=== PATIENT | male | born 1955 | race Caucasian/White ===

== ENCOUNTER 2021-04-26 10:23 | Outpatient (CLI) | payer MEDICARE, SELFPAY ==
--- NOTE | 2021-04-26 10:33 | USCV_ITS ---
Dereje Mcarthur Age: 65 Gender: M : 1955 Exam Date: 04/26/2021 11:02 Ordering Phys: Anand Dougherty PA-C Technologist: Kathie Perla Exam Location: [facility] [place] Indication: RIGHT LOWER EXTREMITY SWELLING AND RIGHT GROIN MASS HISTORY: Lower extremity swelling. PROCEDURES: Venous duplex imaging was performed in only the right lower extremity. The following venous structures were evaluated: common femoral vein, profunda vein, proximal portion of the greater saphenous vein, superficial femoral vein, and the popliteal vein. In addition, the posterior tibial and peroneal trunk were evaluated. FINDINGS: There appears to be an enlarged lyphm node in right groin patient directed area. Normal 2-D Doppler and augmentation and compressibility throughout the lower extremity venous structures. Additional imaging through the proximal calf veins also reveals no thrombus. Limited evaluation of the greater saphenous vein is patent with no thrombus.. CONCLUSIONS No evidence of right lower extremity DVT. Enlarged abnormal lymph node right groin measuring 5.7 x 2.3cm. Loss of the normal fatty hilum. Recommned CT abdomen and pelvis in further evaluation and correlation with history of malignancy Setvo Alonso MD (Electronically Signed) Final Date: 26 April 2021 17:50 S
== END 2021-04-26 10:24 | disposition home or self-care (01) ==
LOC: RAD 10:29
PROVIDERS: PCP Family Medicine; Visit Provider Physician Assistant Medical
DX: R19.09 Other intra-abdominal and pelvic swelling, mass and lump (principal); M79.89 Other specified soft tissue disorders; C67.9 Malignant neoplasm of bladder, unspecified
CPT/HCPCS: 93971

== ENCOUNTER 2021-04-29 11:29 | Outpatient (CLI) | payer MEDICARE, SELFPAY ==
[2021-04-29 12:25] LABS: Basophils % 0.3 %; Eosinophils # 0.1 10^3/uL (0.0-0.8); Eosinophils % 0.9 %; Hematocrit 46.1 % (42.0-52.0); Hemoglobin 15.1 g/dL (11.7-16.6); Lymphocytes # 1.5 10^3/uL (0.8-4.8); Lymphocytes % 16.6 %; Mean Corpuscular HGB Conc 32.8 g/dL (30.0-36.0); Mean Corpuscular Volume 85.5 fL (80-94); Mean Platelet Volume 9.8 fL (7.4-10.4); Monocytes # 0.6 10^3/uL (0.2-0.9); Monocytes % 6.6 %; Neutrophils # 6.82 10^3/uL (1.8-7.7); Neutrophils % 75.3 %; Nucleated Red Blood Cells % 0 %; Platelet Count 176 10^3/cmm (130-400); Red Blood Count 5.39 10^6/uL (4.1-5.3); Red Cell Distribution Width 13.6 % (12.1-15.1); White Blood Count 9.1 10^3/uL (4.0-10.0)
[2021-04-29 12:47] LABS: D Dimer 6.77 ug/mIFEU (0-0.59)
[2021-04-29 12:50] LABS: Add Urine Microscopic? YES; Bilirubin Urine 1+ (Negative); Blood Urine 2+ (Negative); Glucose Urine UA Norm (Normal); Ketones Urine Negative (Negative); Leukocyte Esterase Urine Trace (Negative); Nitrate Urine Negative (Negative); Protein Urine Trace (Negative); Urine Appearance SL Hazy (CLEAR); Urine Color Yellow (Yellow); Urobilinogen Urine 1 mg/dL (Negative); pH Urine 5 (5-7)
[2021-04-29 13:03] LABS: Prostate Specific Antigen 0.881 ng/mL (0-4)
--- NOTE | 2021-04-29 13:13 | CT_ITS ---
WS: [id number] CT ABDOMEN AND PELVIS WITH CONTRAST HISTORY: MASS OF RIGHT INGUINAL REGION, MALIGNANT NEOPLASM OF URINARY TECHNIQUE: Imaging performed of the abdomen and pelvis with IV contrast. Single phase imaging of the abdomen. Coronal and sagittal reformats are submitted. All CT scans at [facility] use at least one of these dose optimization techniques: automated exposure control; mA and/or kV adjustment per patient size (includes targeted exams where dose is matched to clinical indication); or iterativ e reconstruction. IV CONTRAST: Omnipaque 300; 95 mL IV. Oral contrast: Yes. DLP: 1137.48 mGycm COMPARISON: None available. Lower thorax: Benign granuloma at the RIGHT lung base. Heart is normal size. Small hiatal hernia. Liver/biliary system: Numerous low-attenuation lesions throughout the liver. Confluent cluster of nod ules in the LEFT lobe measures 8.4 x 7.6 cm. These nodules extend to the falciform ligament. There ar e a few additional hypodensities along the RIGHT lateral falciform ligament. There is a larger hypoec hoic mass in the posterior RIGHT lobe of liver measuring 5.3 x 3.9 cm. Benign granuloma RIGHT lobe. N o bile duct dilatation. Portal vein is patent. Gallbladder: Normal. No gallstones or wall thickening. No pericholecystic fluid. Pancreas: Normal size pancreas and pancreatic duct. No adjacent inflammation. Spleen: Normal size with granulomata. Adrenal glands: Normal. Right kidney: Normal size kidney. Several cysts with the largest measuring 2.8 cm. No obstruction or solid mass. Left kidney: Large cyst from the upper pole measures 8.0 x 7.1 cm. There are additional cortical cyst s. Larger cyst from the lower pole extending anteriorly measures 13.5 x 10.7 cm. No hydronephrosis or solid mass. Aorta: No aneurysm. Moderate atherosclerotic plaque. Lymphadenopathy: Retrocrural lymph node measures 1.4 cm. Celiac axis lymph node 2.5 cm. Confluent sof t tissue surrounds the abdominal aorta beginning at the level of the renal arteries and extending inf eriorly around the aorta. Maximum diameter of the soft tissue is 4.8 x 6.6 cm just below the level of the renal arteries. There is near encasement of the abdominal aorta with lymph nodes. Proximal LEFT common iliac lymph node at 2.0 cm. Additional lymph nodes extending along the RIGHT iliac artery. The re is extensive lymph node burden extending along the RIGHT external iliac artery into the inguinal r egion. RIGHT obturator lymph node measures 2.6 x 4.4 cm. RIGHT inguinal lymph node measures 4.0 x 2.3 cm. Additional smaller lymph nodes, predominantly within the RIGHT pelvis and RIGHT inguinal region. Free fluid: None. GI tract: Extensive diverticular disease throughout the colon. Normal appendix. No GI tract obstructi on. Abdominal wall: Unremarkable abdominal wall. No hernia. Pelvis: Nondistended urinary bladder. Prostate gland is slightly enlarged. Internal canals are patent bilaterally containing fat. Bones: There is some very minimal increased density within several of the vertebral bodies including T10 and L4. CT/CT abdomen pelvis w con* [id number] IMPRESSION: 1. Abdominal and pelvic lymphadenopathy. Abnormal lymph nodes: RIGHT retrocrur al, celiac axis, retroperitoneum, bilateral iliac chains and RIGHT inguinal reg ion. Metastatic lymphadenopathy is most likely. The lymph node at the RIGHT ruth ann in should be readily available for ultrasound-guided biopsy. 2. Metastatic liver disease. Numerous metastatic lesions within the liver. Lar gest in the LEFT lobe is a confluent mass measuring 8.4 x 7.6 cm. 3. No adrenal mass. 4. Pancolonic diverticulosis without acute diverticulitis. 5. Very subtle increased density within T10 and L4. Consider early metastatic bone disease. PET/CT imaging and/or bone scan should be obtained.
[2021-04-29 13:14] LABS: Alanine Aminotransferase 14 U/L (0-41); Albumin Level 3.8 g/dL (3.5-5.2); Alkaline Phosphatase 134 IU/L (40-130); Anion Gap 15.4 (5-19); Aspartate Amino Transferase 18 U/L (0-40); Blood Urea Nitrogen 17 mg/dL (8-23); Calcium 8.8 mg/dL (8.5-10.5); Carbon Dioxide 24 mmol/L (22-29); Chloride 102 mmol/L (98-107); Globulin 3.2 g/dL (1.3-4.6); Glomerular Filtration Rate 113.5 mL/min (90-130); Glucose 83 mg/dL (65-115); Osmolality Calculated 285 mOsm/kg (285-295); Potassium 4.4 mmol/L (3.5-5.1); Sodium 137 mmol/L (136-145); Total Bilirubin 0.7 mg/dL (0.15-1.2)
[2021-04-29] MEDS: iohexol 300 mg/mL 50 mL Btl PO (13:16)
[2021-04-29 13:19] LABS: Mucus Urine 4+ /hpf
[2021-04-29 13:20] LABS: Add Urine Culture? Yes; Bacteria Urine 2+ /hpf; Squamous Epithelial Cell Urine 0-4 /hpf (0-5); WBC Urine 0-4 /hpf (0-5)
[2021-04-29 13:30] LABS: Erythrocyte Sedimentation Rate 13 mm/hr (0-10)
[2021-04-29] MEDS: iohexol 300 mg/mL 100 mL Btl IV (14:33)
== END 2021-04-29 11:30 | disposition home or self-care (01) ==
PROVIDERS: PCP Family Medicine; Visit Provider Physician Assistant Medical
DX: Z12.5 Encounter for screening for malignant neoplasm of prostate (principal); R19.09 Other intra-abdominal and pelvic swelling, mass and lump; C67.9 Malignant neoplasm of bladder, unspecified; K57.90 Diverticulosis of intestine, part unspecified, without perforation or abscess without bleeding; R59.1 Generalized enlarged lymph nodes; M79.89 Other specified soft tissue disorders
CPT/HCPCS: 36415; 74177; 80053; 81001; 84153; 85025; 85378; 85651; 87086; Q9967

== ENCOUNTER 2021-06-03 08:07 | Outpatient (CLI) | payer MEDICARE, SELFPAY ==
[2021-06-03 09:29] LABS: Basophils % 0.1 %; Eosinophils % 0.3 %; Hematocrit 42.1 % (42.0-52.0); Hemoglobin 14.1 g/dL (11.7-16.6); Lymphocytes # 1.4 10^3/uL (0.8-4.8); Mean Corpuscular HGB Conc 33.5 g/dL (30.0-36.0); Mean Corpuscular Hemoglobin 26.8 pg (28.0-34.0); Mean Corpuscular Volume 79.9 fl (80-94); Mean Platelet Volume 9.5 fL (7.4-10.4); Monocytes # 0.3 10^3/uL (0.2-0.9); Monocytes % 4.1 %; Neutrophils # 5.26 10^3/uL (1.8-7.7); Neutrophils % 72.1 %; Nucleated Red Blood Cells % 0 %; Platelet Count 109 10^3/cmm (130-400); Red Blood Count 5.27 10^6/uL (4.1-5.3); Red Cell Distribution Width 14.8 % (12.1-15.1); White Blood Count 7.3 10^3/uL (4.0-10.0)
[2021-06-03 09:45] LABS: Alanine Aminotransferase 53 U/L (0-41); Alkaline Phosphatase 278 IU/L (40-130); Anion Gap 16.3 (5-19); Aspartate Amino Transferase 33 U/L (0-40); Blood Urea Nitrogen 19 mg/dL (8-23); Carbon Dioxide 25 mmol/L (22-29); Chloride 97 mmol/L (98-107); Glomerular Filtration Rate 135.2 mL/min (90-130); Glucose 86 mg/dL (65-115); Osmolality Calculated 280 mOsm/kg (285-295); Potassium 4.3 mmol/L (3.5-5.1); Sodium 134 mmol/L (136-145); Total Bilirubin 0.8 mg/dL (0.15-1.2)
[2021-06-03] MEDS: ondansetron 2 mg/ML SDV 2 mL 8 MG IV (12:00)
[2021-06-03] MEDS: sodium chloride 0.9% 250 ML 75 ML IV (12:00)
--- NOTE | 2021-06-03 14:56 | ONC CON_ITS ---
Dr. Mcintyre New Patient Note Patient: Dereje Mcarthur Unit #: [id number]: 1955 Dicatated By: Lele Mcintyre M.D.Date of Visit: Jun 03, 2021 Onc MED New Patient/Consult Referring Physician: Dr. Jama Ferrer M.D. Chief Complaint: Metastatic urothelial adenocarcinoma. History of Present Illness: This is a 66 year-old man recently found to have metastatic adenocarcinoma consistent with urothelial primary. He has a known history of superficial bladder cancer, initially diagnosed in 2016. He had stage I disease (T1, N0, M0) for which he underwent TURBT and intravesical BCG. Had repeat TURBT and intravesical BCG recurrence in 2017 which was stage 0 (Tis, N0, M0) and again in 2018 which was stage I (T1, N0, M0). His records indicate that surveillance cystoscopy on 02/05/2021 showed evidence for BPH with moderate obstruction. In April 2021 he had presented with swelling of the right leg. His venous Doppler on 04/26/2021 showed no evidence of deep vein thrombosis. There appeared to be and enlarged lymph node in the right groin area measuring 5.7 x 2.3 cm. Further evaluation with CT abdomen/pelvis on 04/29/2021 showed numerous low-attenuation lesions throughout the liver consistent with metastatic disease. The largest was in the left lobe measuring 8.4 x 7.6 cm. A mass in the posterior right lobe measured 5.3 x 3.9 cm. There was extensive lymphadenopathy including retrocrural lymph node measuring 1.4 cm, celiac axis lymph node measuring 2.5 cm, periaortic adenopathy with maximum diameter of 4.8 x 6.6 cm, as well as left common iliac adenopathy measuring 2.0 cm and extensive lymph node burden extending along the right external iliac artery into the inguinal region. A right obturator lymph node measured 2.6 x 4.4 cm and a right inguinal lymph node measured 4.0 x 2.3 cm. There appeared to be minimal increased density within several of the vertebral bodies including T10 and L4, suspicious for early metastatic bone disease. Right inguinal lymph node biopsy on 05/07/2021 was nondiagnostic. Nuclear medicine bone scan on 05/17/2021 showed extensive metastatic disease throughout the axial skeleton which included all the ribs, sternum, cervical spine, thoracic spine, lumbar spine, and both hips. CT directed needle biopsy of the liver on 05/18/2021 showed metastatic adenocarcinoma consistent with urothelial primary. Additional imaging at that time included chest CT which showed 2 small lung nodules which were nonspecific, early metastatic disease not excluded. MRI of the brain showed no evidence of metastatic disease. He had medical oncology consultation with Dr. Yun at [facility] on 05/12/2021. With the pathology findings available, he was recommended to undergo a trial of palliative chemotherapy with cisplatin/gemcitabine. He began cycle 1 on 05/27/2021. He is being seen here now so that he can receive his further treatment closer to home. He was able to tolerate his day 1 chemotherapy without acute toxicities. He actually noted significant improvement in his energy and his appetite for the first 3 days after treatment while he was taking dexamethasone. He has since then had very limited activity. He ambulates short distances with a walker. He is otherwise sedentary. ECOG score is 3. Appetite since then has been very poor. Overall his weight is down 30 pounds. He has had low-grade fever up to 101 degrees off and on, and he sometimes has sweating. He has not had sore mouth or throat, but he does complain that some foods hurt to swallow. He does not complain of cough, and he has not been having shortness of breath or chest pain. He has had no nausea/vomiting. He has had heartburn. He has been taking Pepcid, but not regularly. He has constipation. His bowels have moved taking magnesium citrate every third day. He has no complaints other than some mild hesitancy with urination. His most significant pain has been in the back and left hip, but it is being managed adequately with his pain medication. He does not complain of headache or dizziness, and he has no focal neurologic symptoms. Past Medical History: His medical history consists of gastroesophageal reflux disease, hypertension, and superficial bladder cancer. Past Surgical History: He underwent right inguinal lymph node biopsy on 05/08/2021. He underwent CT directed needle biopsy of the liver on 05/18/2021. His other surgical/procedural history includes TURBT and intravesical BCG in 2016, 2017 and 2018, excision of benign neck tumor in 2013, and previous right foot surgery. Medications: Baclofen Tablet Oral, Dexamethasone Tablet Oral, Famotidine 1 Tablet (of 40 mg) Oral daily, HYDROcodone-Acetaminophen 1 Tablet (of 5-325 mg) Oral q 4 hours PRN, Magnesium Citrate Solution Oral PRN, Metoclopramide HCl 1 Tablet (of 5 mg) Oral four times a day, Metoprolol Tartrate 1 Tablet (of 25 mg) Oral b.i.d., Morphine Sulfate ER 1 Tablet (of 30 mg) Tablet, controlled release Oral b.i.d., Ondansetron HCl Tablet Oral, Prochlorperazine Maleate 1 Tablet (of 10 mg) Oral t.i.d. PRN, Rolapitant HCl (180 MG Dose) Tablet Therapy Pack Oral, Senna S 1 Tablet (of 8.6-50 mg) Oral b.i.d., traMADol HCl Tablet Oral Allergies: No Known Allergies. Social History: Mr. Mcarthur is . He has a history of smoking 1 pack of cigarettes daily for 40 years. He just recently quit. He has very little alcohol use. Family History: Father in his late 80s. He had prostate cancer, but he apparently of old age. Mother had diabetes. He had one brother who with coronary artery disease. One sister is still living. Review Of Symptoms: Constitutional - He had good energy and good appetite for about 3 days after his treatment last week. His activity now is very limited. He has only minimal ambulation with a walker. Appetite is poor. His weight is down 30 pounds. He has had low-grade fever up to 101 degrees off and on. He sometimes has sweating. ECOG score is 3, Eyes - No change in vision, ENMT - No hearing loss or tinnitus. No sinus congestion/drainage. No mouth sores. No sore throat or difficulty swallowing, but with some foods it does hurt to swallow, Hematologic/Lymphatic - No abnormal bruising or bleeding, Respiratory - No shortness of breath. No cough. No pleuritic pain or hemoptysis, Cardiovascular - No angina pain. No palpitations, Gastrointestinal - No nausea or vomiting. He has heartburn. He has been taking Pepcid, but not regularly. He has constipation. Bowels are moving by taking magnesium citrate every 3 days. No blood in the stool or black stools, Genitourinary (M) - No dysuria or hematuria. No urinary frequency. He has some hesitancy with urination. No urgency or incontinence, Musculoskeletal - He has been having pain in his left hip and he has back pain, but it has been adequately controlled on the pain medication, Integumentary - No skin rash or other skin changes, Neurologic - No headache or dizziness. No numbness or tingling. No other focal neurologic symptoms, Psychiatric - He has a little anxiety/depression. He has been sleeping okay. Vital Signs: Performed on Jun 03, 2021 11:35: 7, 3, 31.72 (HIGH), 2.33 sq.m, 73.00 in, 98 %, 64 /min, 18 /min, 130/78 mm(hg), 96.9 F (LOW), and 240.4 lbs (HIGH). Physical Examination: Constitutional - He appears somewhat weak generally, Eyes - Sclerae nonicteric. Conjunctivae clear, ENMT - No lesions noted in the oral cavity, Neck - No mass or thyromegaly, Hematologic/Lymphatic - No cervical, clavicular, or axillary adenopathy, Respiratory - Lungs are clear with good air movement bilaterally, Cardiovascular - Heart rhythm is regular. There is no murmur, gallop, or rub noted, Abdomen - Soft. There is mild tenderness on the left upper quadrant/lower rib cage. Liver and spleen are not enlarged. There is no abdominal mass or ascites noted. there is no inguinal adenopathy noted, Back/Spine - There is no significant bony tenderness in the spine, Extremities - There was 2+ edema involving the entire right leg, and it does feel cool to touch. There is just mild edema on the left. Dorsalis pedis pulses are palpable bilaterally, Integumentary - No rashes. No suspicious skin lesions noted, Neurologic - No focal neurologic deficits noted. Lab/Imaging: CBC shows hemoglobin 14.1 g, white blood cell count 7300, and platelet count 109,000. Comprehensive metabolic profile shows normal renal function with BUN 19 and creatinine 0.6 mg/dL. Alkaline phosphatase is elevated at 278/130 IU/L. SGPT is slightly elevated to 53/41 U/L. The SGOT and the bilirubin are normal. Albumin is low 3.0 g/dL. Problem List: 1. Metastatic adenocarcinoma of urothelial origin, stage IVB (Tx, N3, M1b). 2. History of superficial bladder cancer with negative surveillance cystoscopy in January 2021. 3. Hypertension. 4. GERD. Problems Addressed with this Encounter and Plan: 1. Patient with metastatic adenocarcinoma consistent with urothelial primary. He has stage IV disease with CT evidence of multiple metastatic lesions in the liver and extensive metastatic lymphadenopathy in the abdomen/pelvis. There is also extensive bony metastatic disease by nuclear medicine bone scan. He is undergoing a trial of palliative chemotherapy with cisplatin/gemcitabine for 4 cycles. Depending on response, he would then have the option to transition to maintenance immunotherapy with avelumab. He is currently at day 8 of cycle 1 of cisplatin/gemcitabine. Thus far he has tolerated the chemotherapy well. He will proceed with day 8 gemcitabine at 1000 mg/m??? by IV infusion. Returns in 1 week. In the meantime, due to the symptomatic improvement he had with the dexamethasone, I am going to keep him on a low-dose steroid regimen with prednisone 10 mg twice daily. He also will start pantoprazole 40 mg daily for his GERD symptoms. 2. He has extensive metastatic involvement in bone. He also will begin supportive therapy with denosumab, subject to verification of insurance coverage. 3. He has opiate-induced constipation. He is currently on a bowel regimen with senna/docusate and magnesium citrate. For now he will increase senna to 2 tablets up to 2 or 3 times daily. I will consider adding Relistor as necessary. Signed By: Lele Mcintyre M.D. <<Signature on File>>
== END 2021-06-03 08:08 | disposition home or self-care (01) ==
PROVIDERS: PCP Family Medicine; Visit Provider Internal Medicine Medical Oncology
DX: Z51.11 Encounter for antineoplastic chemotherapy (principal); C78.7 Secondary malignant neoplasm of liver and intrahepatic bile duct; C77.2 Secondary and unspecified malignant neoplasm of intra-abdominal lymph nodes; C79.51 Secondary malignant neoplasm of bone; K21.9 Gastro-esophageal reflux disease without esophagitis; K59.03 Drug induced constipation; T40.60 Poisoning by, adverse effect of and underdosing of unspecified narcotics; Z85.51 Personal history of malignant neoplasm of bladder; Z79.899 Other long term (current) drug therapy; Z79.891 Long term (current) use of opiate analgesic
CPT/HCPCS: 80053; 85025; 96367; 96375; 96413; 99205; J1100; J2405; J7050; J9201

== ENCOUNTER 2021-06-10 06:44 | Outpatient (RCR) | payer MEDICARE, SELFPAY ==
[2021-06-10 08:54] LABS: Basophils % 0.2 %; Eosinophils % 0.2 %; Hematocrit 38.1 % (42.0-52.0); Hemoglobin 12.2 g/dL (11.7-16.6); Lymphocytes % 18.6 %; Mean Corpuscular Hemoglobin 26.8 pg (28.0-34.0); Mean Corpuscular Volume 83.7 fl (80-94); Mean Platelet Volume 10.3 fL (7.4-10.4); Monocytes # 0.4 10^3/uL (0.2-0.9); Neutrophils # 3.58 10^3/uL (1.8-7.7); Neutrophils % 69.9 %; Nucleated Red Blood Cells % 0.4 %; Platelet Count 102 10^3/cmm (130-400); Red Blood Count 4.55 10^6/uL (4.1-5.3); Red Cell Distribution Width 16.1 % (12.1-15.1); White Blood Count 5.1 10^3/uL (4.0-10.0)
[2021-06-10 09:30] LABS: Alanine Aminotransferase 35 U/L (0-41); Albumin Level 3.1 g/dL (3.5-5.2); Alkaline Phosphatase 227 IU/L (40-130); Anion Gap 15.2 (5-19); Aspartate Amino Transferase 19 U/L (0-40); Blood Urea Nitrogen 29 mg/dL (8-23); Calcium 8.4 mg/dL (8.5-10.5); Carbon Dioxide 24 mmol/L (22-29); Chloride 102 mmol/L (98-107); Globulin 2.9 g/dL (1.3-4.6); Glucose 86 mg/dL (65-115); Osmolality Calculated 289 mOsm/kg (285-295); Potassium 4.2 mmol/L (3.5-5.1); Sodium 137 mmol/L (136-145); Total Bilirubin 0.4 mg/dL (0.15-1.2)
[2021-06-10] MEDS: sodium chloride 0.9% 250 ML 75 ML IV (10:40)
[2021-06-10] MEDS: ondansetron 2 mg/ML SDV 2 mL 8 MG IVP (10:40)
[2021-06-10] MEDS: denosumab 120 mg SDV SUBCUT (12:05)
--- NOTE | 2021-06-13 12:10 | ONC FU_ITS ---
Dr. Mcintyre Patient Follow-Up Note Patient: eDreje Mcarthur Unit #: [id number]: 1955 Dicatated By: Lele Mcintyre M.D.Date of Visit:Jun 10, 2021 Onc Med Follow-up/Prog Note Chief Complaint: Metastatic urothelial adenocarcinoma. History of Present Illness: This is a 66 year-old man with metastatic adenocarcinoma consistent with urothelial primary. He has a known history of superficial bladder cancer, initially diagnosed in 2016. He had stage I disease (T1, N0, M0) for which he underwent TURBT and intravesical BCG. Had repeat TURBT and intravesical BCG recurrence in 2017 which was stage 0 (Tis, N0, M0) and again in 2018 which was stage I (T1, N0, M0). His records indicate that surveillance cystoscopy on 02/05/2021 showed evidence for BPH with moderate obstruction. In April 2021 he had presented with swelling of the right leg. His venous Doppler on 04/26/2021 showed no evidence of deep vein thrombosis. There appeared to be and enlarged lymph node in the right groin area measuring 5.7 x 2.3 cm. Further evaluation with CT abdomen/pelvis on 04/29/2021 showed numerous low-attenuation lesions throughout the liver consistent with metastatic disease. The largest was in the left lobe measuring 8.4 x 7.6 cm. A mass in the posterior right lobe measured 5.3 x 3.9 cm. There was extensive lymphadenopathy including retrocrural lymph node measuring 1.4 cm, celiac axis lymph node measuring 2.5 cm, periaortic adenopathy with maximum diameter of 4.8 x 6.6 cm, as well as left common iliac adenopathy measuring 2.0 cm and extensive lymph node burden extending along the right external iliac artery into the inguinal region. A right obturator lymph node measured 2.6 x 4.4 cm and a right inguinal lymph node measured 4.0 x 2.3 cm. There appeared to be minimal increased density within several of the vertebral bodies including T10 and L4, suspicious for early metastatic bone disease. Right inguinal lymph node biopsy on 05/07/2021 was nondiagnostic. Nuclear medicine bone scan on 05/17/2021 showed extensive metastatic disease throughout the axial skeleton which included all the ribs, sternum, cervical spine, thoracic spine, lumbar spine, and both hips. CT directed needle biopsy of the liver on 05/18/2021 showed metastatic adenocarcinoma consistent with urothelial primary. Additional imaging at that time included chest CT which showed 2 small lung nodules which were nonspecific, early metastatic disease not excluded. MRI of the brain showed no evidence of metastatic disease. He had medical oncology consultation with Dr. Yun at [facility] on 05/12/2021. With the pathology findings available, he was recommended to undergo a trial of palliative chemotherapy with cisplatin/gemcitabine. He began cycle 1 on 05/27/2021. He tolerated it without acute toxicity. He was then seen here for his cycle 1 day 8 gemcitabine on 06/03/2021. His other medical illnesses have been limited to hypertension and GERD. He has a history of smoking 1 pack of cigarettes daily for 40 years, but he has quit now. INTERIM HISTORY: He is seen for a follow-up visit. He is now at day 15 of his first cycle of chemotherapy. He is feeling pretty good now. He has had some improvement in his energy and activity tolerance. He is doing a lot of walking and he also is able to do some light work. ECOG score is 1. His appetite is good. He has not had fever. He reports having occasional cold sweats. His tongue has been a little sore. He has not had sore throat or difficulty swallowing. He has no shortness of breath, cough, or chest pain. He has no GI or complaints. He has some back pain and he also has a little pain in his hips. He does not complain of headache or dizziness, and he has no focal neurologic symptoms. Medications: Baclofen Tablet Oral, Dexamethasone Tablet Oral, Famotidine 1 Tablet (of 40 mg) Oral daily, HYDROcodone-Acetaminophen 1 Tablet (of 5-325 mg) Oral q 4 hours PRN, Magnesium Citrate Solution Oral PRN, Metoclopramide HCl 1 Tablet (of 5 mg) Oral four times a day, Metoprolol Tartrate 1 Tablet (of 25 mg) Oral b.i.d., Morphine Sulfate ER 1 Tablet (of 30 mg) Tablet, controlled release Oral b.i.d., Ondansetron HCl Tablet Oral, Prochlorperazine Maleate 1 Tablet (of 10 mg) Oral t.i.d. PRN, Rolapitant HCl (180 MG Dose) Tablet Therapy Pack Oral, Senna S 1 Tablet (of 8.6-50 mg) Oral b.i.d., traMADol HCl Tablet Oral Allergies: No Known Allergies. Vital Signs: Performed on Jun 10, 2021 10:07 Height - 73.00 in Weight - 236.6 lbs (LOW) BSA - 2.31 sq.m BMI - 31.22 (HIGH) Temperature - 98.2 F (LOW) Pulse - 66 /min Respiration - 18 /min BP - 154/81 mm(hg) (HIGH) O2 Sat - 98 % Pain - 0 Fatigue - 2 Physical Examination: Constitutional - He looks a little better generally, Eyes - Sclerae nonicteric. Conjunctivae clear, ENMT - No lesions noted in the oral cavity, Hematologic/Lymphatic - No cervical, clavicular, or axillary adenopathy, Respiratory - Lungs are clear with good air movement bilaterally, Cardiovascular - Heart rhythm is regular. There is no murmur, gallop, or rub noted, Abdomen - Soft. Liver and spleen are not enlarged. There is no abdominal mass or ascites noted. There is a palpable nodule above the biopsy site in the right groin, and there is some mild soft tissue swelling in that area, Extremities - Mild lower extremity edema, Neurologic - No focal neurologic deficits noted. Lab/Imaging: Test performed on Jun 10, 2021 08:37 Sodium 137 mmol/L Potassium 4.2 mmol/L Chloride 102 mmol/L CO2 24 mmol/L Anion Gap 15.2 BUN 29 mg/dL Creatinine 1.0 mg/dL Cr Clearance (Est) 113.4000 mL/min eGFR 75.0 mL/min Glucose 86 mg/dL Osmolality - Calculated 289 mOsm/kg Calcium 8.4 mg/dL Protein, Total 6.0 g/dL Albumin 3.1 g/dL Globulin 2.9 g/dL Bilirubin, Total 0.4 mg/dL ALT (SGPT) 35 U/L AST (SGOT) 19 U/L Alkaline Phosphatase 227 IU/L WBC 5.1 10 3/uL RBC 4.55 10 6/uL HGB 12.2 g/dL HCT 38.1 % MCV 83.7 fl MCH 26.8 pg MCHC 32.0 g/dL RDW 16.1 % Platelet Count 102 10 3/cmm MPV 10.3 fL Neutrophils 3.58 10 3/uL Lymphocytes 1.0 10 3/uL Monocytes 0.4 10 3/uL Eosinophils 0.0 10 3/uL Basophils 0.0 10 3/uL Neutrophil % 69.9 % Lymphocyte % 18.6 % Monocyte % 7.0 % Eosinophil % 0.2 % Basophils % 0.2 % NRBC % 0.4 % Problem List: 1. Metastatic adenocarcinoma of urothelial origin, stage IVB (Tx, N3, M1b). 2. History of superficial bladder cancer with negative surveillance cystoscopy in January 2021. 3. Hypertension. 4. GERD. Problems Addressed with this Encounter and Plan: 1. Patient with metastatic adenocarcinoma consistent with urothelial primary. He has stage IV disease with CT evidence of multiple metastatic lesions in the liver and extensive metastatic lymphadenopathy in the abdomen/pelvis. There is also extensive bony metastatic disease by nuclear medicine bone scan. He is undergoing a trial of palliative chemotherapy with cisplatin/gemcitabine for 4 cycles. Depending on response, he would then have the option to transition to maintenance immunotherapy with avelumab. He is now at day 15 of cycle 1 of cisplatin/gemcitabine. Thus far he has tolerated the chemotherapy very well. He will proceed with day 15 gemcitabine at 1000 mg/m??? by IV infusion. His blood counts will be rechecked in 1 week and he will return for a follow-up visit in 2 weeks. In the meantime, I also will arrange for placement of Port-A-Cath venous access device, as he does not have very good peripheral venous access. 2. He has extensive metastatic involvement in bone. He will begin supportive therapy with denosumab, subject to verification of insurance coverage. Signed By: Lele Mcintyre M.D. <<Signature on File>>
== END 2021-06-17 23:59 | disposition home or self-care (01) ==
LOC: ONCMED 06:44
PROVIDERS: PCP Family Medicine; Visit Provider Internal Medicine Medical Oncology
DX: Z51.11 Encounter for antineoplastic chemotherapy (principal); C68.0 Malignant neoplasm of urethra; I10 Essential (primary) hypertension; K21.9 Gastro-esophageal reflux disease without esophagitis; Z85.51 Personal history of malignant neoplasm of bladder
CPT/HCPCS: 80053; 85025; 96367; 96372; 96375; 96413; 99214; J0897; J1100; J2405; J7050; J9201

== ENCOUNTER → 2021-06-16 10:19 | Outpatient (BNVA) | payer MEDICARE, SELFPAY | PROVIDERS: PCP Family Medicine; Visit Provider Internal Medicine Medical Oncology | DX: Z20.822 Contact with and (suspected) exposure to COVID-19 (principal); C79.10 Secondary malignant neoplasm of unspecified urinary organs | CPT/HCPCS: 85025; 87635 ==

== ENCOUNTER 2021-06-23 06:16 | Day surgery (SDC) | payer MEDICARE, SELFPAY ==
--- NOTE | 2021-06-23 | SCC_ITS ---
Procedure Done: Placement of PowerPort in the left subclavian vein Fluoroscopic guidance and interpretation for placement of catheter 28.8 seconds of fluoroscopic guidance, for a cumulative dose of 6.75 mGy, was provided to Dr. Cam by the radiology department. C-arm images of the chest were saved for the patient's permanent record. [facility]
[2021-06-23 06:23] VITALS: BP 137/80; PULSE 65; RESP 16; TEMP 36.6; O2SAT 100
[2021-06-23] MEDS: sodium chloride 0.9% 1,000 ML 30 ML IV (06:49)
--- NOTE | 2021-06-23 07:01 | W.PM.OPSUD ---
Surgery/Procedure H&P Update DATE OF PROCEDURE: June 23, 2021 DATE H&P PERFORMED: 06/15/21 H&P UPDATE INFORMATION: I have reviewed H&P completed within last 30 days, I have examined patient prior to procedure and No changes to prior documentation PREOP DIAGNOSIS: Bladder cancer PLANNED PROCEDURE: Operation Date: 06/23/21 07:50 Proposed Procedures p Portacath Placement 67910 C79.10(Not Applicable) - Orlando Cam MD
--- NOTE | 2021-06-23 07:40 | ANES.PREANE2 ---
Pre-Anesthetic Assessment Pre-Anesthetic Assessment: Height/Weight: Height 1.85 m Temp Pulse Resp BP Pulse Ox 98 F 65 16 137/80 100 06/23/21 06:23 06/23/21 06:23 06/23/21 06:23 06/23/21 06:23 06/23/21 06:23 Preop Diagnosis: Bladder cancer Proposed Procedure: Operation Date: 06/23/21 07:50 Proposed Procedures p Portacath Placement 07360 C79.10(Not Applicable) - Orlando Cam MD Was Beta Mata taken within 24 hours: Yes Was Clonidine taken within 24 hours: N/A Last intake: Intake Last Liquid Date 06/22/21 Last Liquid Time 18:00 Last Solid Date 06/22/21 Last Solid Time 18:00 Social: Social History: Tobacco and No alcohol Exam: Pre-Anes Outpt Exam: alert, oriented x 3 and regular rate & rhythm Airway: Submandibular: WNL Cervical ROM: WNL MP: 2 Dentition: Full Pulmonary: Pulmonary: COPD CV/HEM: CV/HEM: HTN Metabolic: Metabolic: Morbid obesity Neuropsych: Comments: Chronic pain (from [place]) Anesthetic Plan: ASA status: 3 Anesthesia: MAC Risk of > 500 ml blood loss (7ml/kg in children): No Meds/Allergies Current Medications: Current Medications Generic Name Dose Route Start Last Admin Trade Name Freq PRN Reason Stop Dose Admin Sodium Chloride 1,000 mls @ 30 ml s/hr 06/23/21 06:30 06/23/21 06:49 Sodium Chloride 0.9% IV 30 mls/hr .Q24H ABA Administration PFSH Anesthesia PFSH: Medical History (Updated 06/15/21 @ 13:39 by Orlando Cam MD) History of bladder cancer Metastatic urothelial carcinoma Surgical History (Updated 06/15/21 @ 13:39 by Orlando Cam MD) H/O excision of dermoid cyst Hx of cystoscopy Family History (Updated 06/15/21 @ 13:16 by Rosa Swanson) Other CAD (coronary artery disease) Cancer Diabetes Denies family history of Dementia Chronic kidney disease (CKD) Lung disease Stroke Social History (Updated 06/15/21 @ 13:16 by Rosa Swanson) Smoking and tobacco status: current every day smoker Alcohol intake: never Lives independently: Yes Household members: spouse Marital status: Data Anesthesia Cardiac Studies: No Data to Display
--- NOTE | 2021-06-23 07:54 | SC_ITS ---
WS: [id number] C-arm fluoroscopy for port placement, 06/23/2021 Clinical Data: SURGERY Comparison: None. Findings: A left Port-A-Cath was inserted and ends in the superior vena cava SC/C-arm FL for CVA 16736 Impression: Left Port-A-Cath insertion.
[2021-06-23] MEDS: lidocaine 1% INJ 20 mL INJECTION (08:42)
[2021-06-23] MEDS: heparin, porcine 1,000 unit/mL INJ 10 mL 6000 UNIT INJECTION (08:43)
--- NOTE | 2021-06-23 08:53 | PM.OP ---
Operative Report Date of procedure: June 23, 2021 Pre-op Diagnosis: Bladder cancer Post-op diagnosis: same Procedure Done: Placement of PowerPort in the left subclavian vein Fluoroscopic guidance and interpretation for placement of catheter Pathology: none sent Surgeon: Orlando Cam Anesthesia: MAC Condition: stable Disposition: PACU Procedure: The patient was taken to the Operating Room and the chest and neck bilaterally were prepped and draped in a sterile manner after the antibiotic had been administered and shoulder rolls had been placed. A total of 10 mL of 1% lidocaine with 0.5% Marcaine was infiltrated under the clavicle on the left side at the site of the planned entry into the subclavian vein. An introducer needle was then used to access the subclavian vein under the clavicle and after withdrawing blood syringe was removed and a guidewire passed under fluoroscopy into the superior vena cava. The site of the planned port was then marked on the chest and a 15 blade was used to make a 3 cm skin incision this was extended into the subcutaneous tissue using electrocautery and a subcutaneous pocket over the pectoralis fascia was created 2-0 Vicryl suture was used to suture the port to the pectoral fascia in the pocket on 3 sides. The catheter, after having been flushed with hep saline, was attached to the tunneler and a tunnel created between the port site and the subclavian vein entry site. Under fluoroscopy the dilator sheath was passed over the guidewire into the proximal superior vena cava. The inner dilator was removed and the sheath left behind and~ the catheter was introduced through the peel-away sheath with the tip in the superior vena cava. The peel-away sheath was removed. The proximal end of the catheter was cut to the right size and was attached to the port. Using a Escalante needle the port was accessed, it withdrew blood easily and flushed easily. A final 5cc of heparin was used to flush the PowerPort. The subcutaneous tissue was approximated using interrupted 3-0 Vicryl sutures and the skin at the introducer site and the port site was closed using subcuticular running 4-0 Monocryl sutures. Surgical glue was applied and the patient was stable throughout the procedure. Fluoroscopic guidance and interpretation was performed for introduction of the guidewire in the left subclavian vein, passage of dilator and placement of catheter tip in the distal superior vena cava.
[2021-06-23 09:06] VITALS: BP 112/68; PULSE 64; RESP 12; TEMP 36.2; O2SAT 99
[2021-06-23 09:10] VITALS: BP 112/63; PULSE 62; RESP 12; O2SAT 100
[2021-06-23 09:15] VITALS: BP 128/71; PULSE 60; RESP 12; O2SAT 100
[2021-06-23 09:27] VITALS: BP 111/77; PULSE 64; RESP 12; TEMP 36.2; O2SAT 98
--- NOTE | 2021-06-23 15:15 | ANE.PACU2 ---
Inpatient post-anesthesia follow up: Airway intact: Yes Vital signs: Temperature 97.2 F Pulse Rate 64 Respiratory Rate 12 Blood Pressure 111/77 Pulse Oximetry 98 Oxygen Delivery Me thod Room Air Oxygen Flow Rate 8 Fraction of Inspir ed Oxygen Hydration adequate: Yes Nausea and vomiting: No Pain level: 2 Mental status: Baseline
== END 2021-06-23 09:40 | disposition home or self-care (01) ==
PROVIDERS: PCP Family Medicine; Visit Provider Surgery
PROC: (CPT 36561; principal; 2021-06-23 07:50)
DX: C67.9 Malignant neoplasm of bladder, unspecified (principal); J44.9 Chronic obstructive pulmonary disease, unspecified; I10 Essential (primary) hypertension; E66.01 Morbid (severe) obesity due to excess calories; Z82.49 Family history of ischemic heart disease and other diseases of the circulatory system; Z83.3 Family history of diabetes mellitus; F17.210 Nicotine dependence, cigarettes, uncomplicated; G89.29 Other chronic pain; Z79.891 Long term (current) use of opiate analgesic
CPT/HCPCS: 36561; 76000; 77001; C1788; J0690; J1644; J2704; J3010; J3490; J7030

== ENCOUNTER 2021-07-01 06:23 | Outpatient (RCR) | payer MEDICARE, SELFPAY ==
[2021-06-24] MEDS: sodium chloride 0.9% 250 ML 75 ML IV (08:37)
[2021-06-24 09:17] LABS: Basophils % 0.3 %; Eosinophils % 0.3 %; Lymphocytes # 1.4 10^3/uL (0.8-4.8); Lymphocytes % 19.1 %; Mean Corpuscular HGB Conc 31.4 g/dL (30.0-36.0); Mean Corpuscular Hemoglobin 27.3 pg (28.0-34.0); Mean Corpuscular Volume 86.8 fl (80-94); Mean Platelet Volume 9.6 fL (7.4-10.4); Monocytes # 0.9 10^3/uL (0.2-0.9); Monocytes % 11.3 %; Neutrophils # 5.06 10^3/uL (1.8-7.7); Nucleated Red Blood Cells % 0.5 %; Platelet Count 249 10^3/cmm (130-400); Red Blood Count 4.03 10^6/uL (4.1-5.3); Red Cell Distribution Width 20.1 % (12.1-15.1); White Blood Count 7.5 10^3/uL (4.0-10.0)
[2021-06-24 09:40] LABS: Alanine Aminotransferase 22 U/L (0-41); Albumin Level 3.1 g/dL (3.5-5.2); Alkaline Phosphatase 127 IU/L (40-130); Anion Gap 12.8 (5-19); Aspartate Amino Transferase 14 U/L (0-40); Blood Urea Nitrogen 25 mg/dL (8-23); Calcium 8.8 mg/dL (8.5-10.5); Carbon Dioxide 23 mmol/L (22-29); Chloride 106 mmol/L (98-107); Globulin 2.8 g/dL (1.3-4.6); Glomerular Filtration Rate 113.2 mL/min (90-130); Glucose 79 mg/dL (65-115); Osmolality Calculated 287 mOsm/kg (285-295); Potassium 4.8 mmol/L (3.5-5.1); Sodium 137 mmol/L (136-145); Total Bilirubin 0.3 mg/dL (0.15-1.2); Total Protein 5.9 g/dL (6.6-8.7)
[2021-06-24] MEDS: palonosetron 0.25 mg/5 mL SDV IV (10:25)
[2021-06-24] MEDS: fosaprepitant 150 MG in sodium chloride 0.9% 150 ML 300 MG IV (10:53)
[2021-06-24] MEDS: FUROsemide 10 mg/mL SDV 2mL 20 MG IV (13:14)
[2021-06-24] MEDS: potassium chloride 20 MEQ in sodium chloride 0.9% 500 ML 250 MEQ IV (13:15)
[2021-07-01 09:41] LABS: Basophils % 0.2 %; Eosinophils % 0.2 %; Hematocrit 32.6 % (42.0-52.0); Hemoglobin 10.8 g/dL (11.7-16.6); Lymphocytes # 1.3 10^3/uL (0.8-4.8); Lymphocytes % 20.3 %; Mean Corpuscular HGB Conc 33.1 g/dL (30.0-36.0); Mean Corpuscular Hemoglobin 28.4 pg (28.0-34.0); Mean Corpuscular Volume 85.8 fl (80-94); Mean Platelet Volume 9.4 fL (7.4-10.4); Monocytes # 0.4 10^3/uL (0.2-0.9); Monocytes % 5.6 %; Neutrophils # 4.48 10^3/uL (1.8-7.7); Neutrophils % 69.5 %; Nucleated Red Blood Cells # 0.1 /100WBC; Nucleated Red Blood Cells % 0.9 %; Platelet Count 144 10^3/cmm (130-400); White Blood Count 6.4 10^3/uL (4.0-10.0)
[2021-07-01 10:13] LABS: Alanine Aminotransferase 50 U/L (0-41); Albumin Level 3.5 g/dL (3.5-5.2); Alkaline Phosphatase 106 IU/L (40-130); Anion Gap 14.5 (5-19); Aspartate Amino Transferase 19 U/L (0-40); Blood Urea Nitrogen 23 mg/dL (8-23); Calcium 8.2 mg/dL (8.5-10.5); Carbon Dioxide 22 mmol/L (22-29); Chloride 104 mmol/L (98-107); Globulin 2.6 g/dL (1.3-4.6); Glomerular Filtration Rate 135.2 mL/min (90-130); Glucose 87 mg/dL (65-115); Osmolality Calculated 285 mOsm/kg (285-295); Potassium 4.5 mmol/L (3.5-5.1); Sodium 136 mmol/L (136-145); Total Bilirubin 0.4 mg/dL (0.15-1.2); Total Protein 6.1 g/dL (6.6-8.7)
[2021-07-01] MEDS: ondansetron 2 mg/ML SDV 2 mL 8 MG IV (11:43)
[2021-07-01] MEDS: sodium chloride 0.9% 250 ML 75 ML IV (11:43)
== END 2021-07-18 23:59 | disposition home or self-care (01) ==
LOC: ONCMED 06:23
PROVIDERS: PCP Family Medicine; Visit Provider Nurse Practitioner
DX: Z51.11 Encounter for antineoplastic chemotherapy (principal); C67.9 Malignant neoplasm of bladder, unspecified; C78.7 Secondary malignant neoplasm of liver and intrahepatic bile duct; C77.8 Secondary and unspecified malignant neoplasm of lymph nodes of multiple regions; I10 Essential (primary) hypertension; K21.9 Gastro-esophageal reflux disease without esophagitis; Z79.899 Other long term (current) drug therapy
CPT/HCPCS: 80053; 85025; 96367; 96375; 96413; 96417; 99215; J1100; J1453; J1940; J2405; J2469; J3475; J3480; J7030; J7040; J7050; J9060; J9201

== ENCOUNTER → 2021-07-07 09:26 | Outpatient (BNVA) | payer MEDICARE, SELFPAY | PROVIDERS: PCP Family Medicine; Visit Provider Internal Medicine Medical Oncology | DX: C79.10 Secondary malignant neoplasm of unspecified urinary organs (principal) | CPT/HCPCS: 80053; 85025 ==

== ENCOUNTER 2021-08-09 06:25 | Outpatient (RCR) | payer MEDICARE, SELFPAY ==
[2021-07-22 09:36] LABS: Basophils % 0.3 %; Eosinophils % 0.3 %; Hematocrit 38.5 % (42.0-52.0); Hemoglobin 12.2 g/dL (11.7-16.6); Lymphocytes # 1.2 10^3/uL (0.8-4.8); Mean Corpuscular HGB Conc 31.7 g/dL (30.0-36.0); Mean Corpuscular Hemoglobin 29.3 pg (28.0-34.0); Mean Corpuscular Volume 92.3 fl (80-94); Mean Platelet Volume 9.4 fL (7.4-10.4); Monocytes # 0.6 10^3/uL (0.2-0.9); Monocytes % 7.1 %; Neutrophils # 5.78 10^3/uL (1.8-7.7); Neutrophils % 74.7 %; Nucleated Red Blood Cells % 0.4 %; Platelet Count 171 10^3/cmm (130-400); Red Blood Count 4.17 10^6/uL (4.1-5.3); Red Cell Distribution Width 22.3 % (12.1-15.1); White Blood Count 7.7 10^3/uL (4.0-10.0)
[2021-07-22 09:55] LABS: Alanine Aminotransferase 23 U/L (0-41); Albumin Level 3.5 g/dL (3.5-5.2); Alkaline Phosphatase 88 IU/L (40-130); Anion Gap 13.6 (5-19); Aspartate Amino Transferase 15 U/L (0-40); Blood Urea Nitrogen 19 mg/dL (8-23); Calcium 8.7 mg/dL (8.5-10.5); Carbon Dioxide 26 mmol/L (22-29); Chloride 107 mmol/L (98-107); Globulin 2.4 g/dL (1.3-4.6); Glomerular Filtration Rate 166.9 mL/min (90-130); Glucose 105 mg/dL (65-115); Osmolality Calculated 297 mOsm/kg (285-295); Potassium 4.6 mmol/L (3.5-5.1); Sodium 142 mmol/L (136-145); Total Bilirubin 0.4 mg/dL (0.15-1.2); Total Protein 5.9 g/dL (6.6-8.7)
[2021-07-22] MEDS: fosaprepitant 150 MG in sodium chloride 0.9% 150 ML 300 MG IV (13:21)
[2021-07-22] MEDS: sodium chloride 0.9% 250 ML 75 ML IV (13:21)
[2021-07-22] MEDS: palonosetron 0.25 mg/5 mL SDV IV (13:46)
[2021-07-22] MEDS: FUROsemide 10 mg/mL SDV 2mL 20 MG IV (15:57)
[2021-07-22] MEDS: potassium chloride 20 MEQ in sodium chloride 0.9% 500 ML 250 MEQ IV (15:59)
--- NOTE | 2021-07-22 20:01 | ONC FU_ITS ---
Dr. Mcintyre Patient Follow-Up Note Patient: Dereje Mcarthur Unit #: [id number]: 1955 Dicatated By: Lele Mcintyre M.D.Date of Visit:Jul 22, 2021 Onc Med Follow-up/Prog Note Chief Complaint: Metastatic urothelial adenocarcinoma. History of Present Illness: This is a 66 year-old man with metastatic adenocarcinoma consistent with urothelial primary. He has a known history of superficial bladder cancer, initially diagnosed in 2016. He had stage I disease (T1, N0, M0) for which he underwent TURBT and intravesical BCG. Had repeat TURBT and intravesical BCG recurrence in 2017 which was stage 0 (Tis, N0, M0) and again in 2018 which was stage I (T1, N0, M0). His records indicate that surveillance cystoscopy on 02/05/2021 showed evidence for BPH with moderate obstruction. In April 2021 he had presented with swelling of the right leg. His venous Doppler on 04/26/2021 showed no evidence of deep vein thrombosis. There appeared to be and enlarged lymph node in the right groin area measuring 5.7 x 2.3 cm. Further evaluation with CT abdomen/pelvis on 04/29/2021 showed numerous low-attenuation lesions throughout the liver consistent with metastatic disease. The largest was in the left lobe measuring 8.4 x 7.6 cm. A mass in the posterior right lobe measured 5.3 x 3.9 cm. There was extensive lymphadenopathy including retrocrural lymph node measuring 1.4 cm, celiac axis lymph node measuring 2.5 cm, periaortic adenopathy with maximum diameter of 4.8 x 6.6 cm, as well as left common iliac adenopathy measuring 2.0 cm and extensive lymph node burden extending along the right external iliac artery into the inguinal region. A right obturator lymph node measured 2.6 x 4.4 cm and a right inguinal lymph node measured 4.0 x 2.3 cm. There appeared to be minimal increased density within several of the vertebral bodies including T10 and L4, suspicious for early metastatic bone disease. Right inguinal lymph node biopsy on 05/07/2021 was nondiagnostic. Nuclear medicine bone scan on 05/17/2021 showed extensive metastatic disease throughout the axial skeleton which included all the ribs, sternum, cervical spine, thoracic spine, lumbar spine, and both hips. CT directed needle biopsy of the liver on 05/18/2021 showed metastatic adenocarcinoma consistent with urothelial primary. Additional imaging at that time included chest CT which showed 2 small lung nodules which were nonspecific, early metastatic disease not excluded. MRI of the brain showed no evidence of metastatic disease. He had medical oncology consultation with Dr. Yun at [facility] on 05/12/2021. With the pathology findings available, he was recommended to undergo a trial of palliative chemotherapy with cisplatin/gemcitabine. He began cycle 1 on 05/27/2021. He tolerated it without acute toxicity. He was then seen here for his cycle 1 day 8 gemcitabine on 06/03/2021 and for cycle 1 day 15 treatment on 06/10/2021. His other medical illnesses have been limited to hypertension and GERD. He has a history of smoking 1 pack of cigarettes daily for 40 years, but he has quit now. INTERIM HISTORY: He was seen for a scheduled follow-up visit on 06/24/2021. At that point he was feeling better generally. His blood counts were adequate, and he then continued with cycle 2 of cisplatin/gemcitabine. The dosages remain the same. He continued with his cycle 2 day 8 treatment on 07/01/2021, but at day 15 his treatment was put on hold due to a drop in his platelet count to 55,000. He is seen for a scheduled visit. He has been feeling pretty good generally. He says his energy is okay, and he is back to normal activity. ECOG score is zero. His appetite is good. He has not had fever. He occasionally has a little swelling. His main complaint is right leg has been swelling more during the past couple of weeks. He has not had sore mouth or throat. He does not complain of cough, and he has not been having shortness of breath or chest pain. He has no GI or complaints. He has no significant joint or bone pain. He does not complain of headache or dizziness. He has been having some numbness in his right foot/toes. Medications: Baclofen Tablet Oral, Dexamethasone Tablet Oral, Famotidine 1 Tablet (of 40 mg) Oral daily, HYDROcodone-Acetaminophen 1 Tablet (of 5-325 mg) Oral q 4 hours PRN, Magnesium Citrate Solution Oral PRN, Metoclopramide HCl 1 Tablet (of 5 mg) Oral four times a day, Metoprolol Tartrate 1 Tablet (of 25 mg) Oral b.i.d., Morphine Sulfate ER 1 Tablet (of 30 mg) Tablet, controlled release Oral b.i.d., Ondansetron HCl Tablet Oral, Prochlorperazine Maleate 1 Tablet (of 10 mg) Oral t.i.d. PRN, Rolapitant HCl (180 MG Dose) Tablet Therapy Pack Oral, Senna S 1 Tablet (of 8.6-50 mg) Oral b.i.d., traMADol HCl Tablet Oral Allergies: No Known Allergies. Vital Signs: Performed on Jul 22, 2021 10:25 Height - 73.00 in Weight - 258 lbs (HIGH) BSA - 2.40 sq.m BMI - 34.04 (HIGH) Temperature - 98.4 F Pulse - 61 /min Respiration - 18 /min BP - 156/89 mm(hg) (HIGH) O2 Sat - 99 % Pain - 0 Fatigue - 0 Physical Examination: Constitutional - He looks good generally, Eyes - Sclerae nonicteric. Conjunctivae clear, ENMT - No lesions noted in the oral cavity, Hematologic/Lymphatic - No cervical, clavicular, or axillary adenopathy, Respiratory - Lungs are clear with good air movement bilaterally, Cardiovascular - Heart rhythm is regular. There is no murmur, gallop, or rub noted, Abdomen - Soft. Liver and spleen are not enlarged. There is no abdominal mass or ascites noted. There is a small residual nodule in the right groin area, Extremities - There is significant swelling of the right leg down to and including the foot. There is a palpable nodule in the midportion of the right calf, Neurologic - No focal neurologic deficits noted. Lab/Imaging: Test performed on Jul 22, 2021 09:19 Sodium 142 mmol/L Potassium 4.6 mmol/L Chloride 107 mmol/L CO2 26 mmol/L Anion Gap 13.6 BUN 19 mg/dL Creatinine 0.5 mg/dL Cr Clearance (Est) 243.81 mL/min eGFR 166.9 mL/min Glucose 105 mg/dL Osmolality - Calculated 297 mOsm/kg Calcium 8.7 mg/dL Protein, Total 5.9 g/dL Albumin 3.5 g/dL Globulin 2.4 g/dL Bilirubin, Total 0.4 mg/dL ALT (SGPT) 23 U/L AST (SGOT) 15 U/L Alkaline Phosphatase 88 IU/L WBC 7.7 10 3/uL RBC 4.17 10 6/uL HGB 12.2 g/dL HCT 38.5 % MCV 92.3 fl MCH 29.3 pg MCHC 31.7 g/dL RDW 22.3 % Platelet Count 171 10 3/cmm MPV 9.4 fL Neutrophils 5.78 10 3/uL Lymphocytes 1.2 10 3/uL Monocytes 0.6 10 3/uL Eosinophils 0.0 10 3/uL Basophils 0.0 10 3/uL Neutrophil % 74.7 % Lymphocyte % 16.0 % Monocyte % 7.1 % Eosinophil % 0.3 % Basophils % 0.3 % NRBC % 0.4 % Problem List: 1. Metastatic adenocarcinoma of urothelial origin, stage IVB (Tx, N3, M1b). 2. History of superficial bladder cancer with negative surveillance cystoscopy in January 2021. 3. Hypertension. 4. GERD. Problems Addressed with this Encounter and Plan: 1. Patient with metastatic adenocarcinoma consistent with urothelial primary. He has stage IV disease with CT evidence of multiple metastatic lesions in the liver and extensive metastatic lymphadenopathy in the abdomen/pelvis. There is also extensive bony metastatic disease by nuclear medicine bone scan. He is undergoing a trial of palliative chemotherapy with cisplatin/gemcitabine for 4 cycles. Depending on response, he would then have the option to transition to maintenance immunotherapy with avelumab. He completed his first cycle of cisplatin/gemcitabine with no significant adverse effects. He proceeded with cycle two on 06/24/2021. With that cycle his day 15 treatment was held due to a drop in his platelet count to 55,000. He had no significant toxicity, and he has had complete recovery. Clinically he does appear to be showing evidence of response with decrease in the right inguinal mass. However, he has having ongoing problems with swelling in the right leg. As such, he will be scheduled for repeat right lower extremity venous Doppler. He will continue, though, with cycle three of cisplatin/gemcitabine. With this cycle he will be given a 20% reduction in the gemcitabine dosage. It will again be administered on a day 1/day 8/day 15 schedule. He will have restaging CT scans prior to his 4th cycle. In the meantime, I am going to request a HER-2/audie study on his biopsy, as his next generation sequencing did show an alteration in the HER-2/audie gene. However, there were no actionable mutations identified. The tumor mutational burden was low at 4.2 and the tumor was determined to be MSI stable. 2. He has extensive metastatic involvement in bone. He will begin supportive therapy with denosumab, subject to verification of insurance coverage. Signed By: Lele Mcintyre M.D. <<Signature on File>>
[2021-07-29 12:21] LABS: Basophils % 0.1 %; Eosinophils % 0.3 %; Hematocrit 34.7 % (42.0-52.0); Hemoglobin 11.1 g/dL (11.7-16.6); Lymphocytes # 1.5 10^3/uL (0.8-4.8); Lymphocytes % 20.1 %; Mean Corpuscular Hemoglobin 29.8 pg (28.0-34.0); Mean Platelet Volume 9.5 fL (7.4-10.4); Monocytes # 0.3 10^3/uL (0.2-0.9); Monocytes % 4.3 %; Neutrophils # 5.48 10^3/uL (1.8-7.7); Nucleated Red Blood Cells % 0.3 %; Platelet Count 90 10^3/cmm (130-400); Red Blood Count 3.73 10^6/uL (4.1-5.3); Red Cell Distribution Width 20.1 % (12.1-15.1); White Blood Count 7.4 10^3/uL (4.0-10.0)
[2021-07-30 08:33] LABS: Basophils % 0.1 %; Eosinophils % 0.5 %; Hematocrit 35.1 % (42.0-52.0); Hemoglobin 11.3 g/dL (11.7-16.6); Lymphocytes # 1.3 10^3/uL (0.8-4.8); Lymphocytes % 16.6 %; Mean Corpuscular HGB Conc 32.2 g/dL (30.0-36.0); Mean Corpuscular Hemoglobin 29.7 pg (28.0-34.0); Mean Corpuscular Volume 92.1 fl (80-94); Mean Platelet Volume 9.3 fL (7.4-10.4); Monocytes # 0.4 10^3/uL (0.2-0.9); Monocytes % 5.1 %; Neutrophils # 6.13 10^3/uL (1.8-7.7); Neutrophils % 75.8 %; Nucleated Red Blood Cells # 0.1 /100WBC; Nucleated Red Blood Cells % 0.9 %; Platelet Count 80 10^3/cmm (130-400); Red Blood Count 3.81 10^6/uL (4.1-5.3); White Blood Count 8.1 10^3/uL (4.0-10.0)
[2021-08-02 09:49] LABS: Basophils % 0.1 %; Eosinophils % 0.3 %; Hematocrit 36.6 % (42.0-52.0); Hemoglobin 11.4 g/dL (11.7-16.6); Lymphocytes # 1.1 10^3/uL (0.8-4.8); Lymphocytes % 14.3 %; Mean Corpuscular HGB Conc 31.1 g/dL (30.0-36.0); Mean Corpuscular Hemoglobin 29.3 pg (28.0-34.0); Mean Corpuscular Volume 94.1 fl (80-94); Mean Platelet Volume 10.8 fL (7.4-10.4); Monocytes # 0.5 10^3/uL (0.2-0.9); Monocytes % 6.1 %; Neutrophils # 6.22 10^3/uL (1.8-7.7); Neutrophils % 78.4 %; Nucleated Red Blood Cells % 0.3 %; Platelet Count 67 10^3/cmm (130-400); Red Blood Count 3.89 10^6/uL (4.1-5.3); White Blood Count 7.9 10^3/uL (4.0-10.0)
[2021-08-09 10:50] LABS: Basophils % 0.2 %; Eosinophils % 0.2 %; Hematocrit 36.1 % (42.0-52.0); Hemoglobin 11.7 g/dL (11.7-16.6); Lymphocytes % 23.5 %; Mean Corpuscular HGB Conc 32.4 g/dL (30.0-36.0); Mean Corpuscular Hemoglobin 30.2 pg (28.0-34.0); Mean Platelet Volume 9.7 fL (7.4-10.4); Monocytes # 0.5 10^3/uL (0.2-0.9); Monocytes % 12.2 %; Neutrophils # 2.77 10^3/uL (1.8-7.7); Neutrophils % 62.8 %; Nucleated Red Blood Cells % 0 %; Platelet Count 206 10^3/cmm (130-400); Red Blood Count 3.88 10^6/uL (4.1-5.3); Red Cell Distribution Width 20.2 % (12.1-15.1); White Blood Count 4.4 10^3/uL (4.0-10.0)
[2021-08-09 11:00] LABS: Alanine Aminotransferase 21 U/L (0-41); Albumin Level 3.5 g/dL (3.5-5.2); Alkaline Phosphatase 69 IU/L (40-130); Aspartate Amino Transferase 17 U/L (0-40); Blood Urea Nitrogen 24 mg/dL (8-23); Calcium 8.4 mg/dL (8.5-10.5); Carbon Dioxide 23 mmol/L (22-29); Chloride 105 mmol/L (98-107); Globulin 2.3 g/dL (1.3-4.6); Glomerular Filtration Rate 55.4 mL/min (90-130); Glucose 89 mg/dL (65-115); Osmolality Calculated 290 mOsm/kg (285-295); Sodium 138 mmol/L (136-145); Total Bilirubin 0.5 mg/dL (0.15-1.2); Total Protein 5.8 g/dL (6.6-8.7)
[2021-08-09 11:03] LABS: Anion Gap 14.9 (5-19); Potassium 4.9 mmol/L (3.5-5.1)
[2021-08-09] MEDS: ondansetron 2 mg/ML SDV 2 mL 8 MG IV (11:52)
[2021-08-09] MEDS: sodium chloride 0.9% 250 ML 75 ML IV (11:52)
== END 2021-08-17 23:59 | disposition home or self-care (01) ==
LOC: ONCMED 06:25
PROVIDERS: PCP Family Medicine; Visit Provider Internal Medicine Medical Oncology
DX: Z51.11 Encounter for antineoplastic chemotherapy (principal); C67.9 Malignant neoplasm of bladder, unspecified; C78.7 Secondary malignant neoplasm of liver and intrahepatic bile duct; C77.8 Secondary and unspecified malignant neoplasm of lymph nodes of multiple regions; C79.51 Secondary malignant neoplasm of bone; I10 Essential (primary) hypertension; K21.9 Gastro-esophageal reflux disease without esophagitis; Z79.899 Other long term (current) drug therapy
CPT/HCPCS: 36591; 80053; 85025; 96366; 96367; 96375; 96413; 96417; 99215; J1100; J1453; J1940; J2405; J2469; J3475; J3480; J7030; J7040; J7050; J9060; J9201

== ENCOUNTER 2021-09-14 13:30 | Outpatient (RCR) | payer MEDICARE, SELFPAY ==
[2021-08-19 10:16] LABS: Basophils % 0.2 %; Eosinophils % 0.1 %; Hematocrit 39.2 % (42.0-52.0); Hemoglobin 12.7 g/dL (11.7-16.6); Lymphocytes # 1.9 10^3/uL (0.8-4.8); Lymphocytes % 21.3 %; Mean Corpuscular HGB Conc 32.4 g/dL (30.0-36.0); Mean Corpuscular Hemoglobin 31.1 pg (28.0-34.0); Mean Corpuscular Volume 96.1 fl (80-94); Mean Platelet Volume 9.8 fL (7.4-10.4); Monocytes # 0.6 10^3/uL (0.2-0.9); Monocytes % 7.2 %; Neutrophils % 69.3 %; Nucleated Red Blood Cells % 0.5 %; Platelet Count 111 10^3/cmm (130-400); Red Blood Count 4.08 10^6/uL (4.1-5.3); Red Cell Distribution Width 19.3 % (12.1-15.1); White Blood Count 8.8 10^3/uL (4.0-10.0)
[2021-08-19 10:35] LABS: Alanine Aminotransferase 19 U/L (0-41); Albumin Level 3.5 g/dL (3.5-5.2); Alkaline Phosphatase 63 IU/L (40-130); Blood Urea Nitrogen 22 mg/dL (8-23); Calcium 8.5 mg/dL (8.5-10.5); Carbon Dioxide 25 mmol/L (22-29); Chloride 108 mmol/L (98-107); Globulin 2.6 g/dL (1.3-4.6); Glucose 85 mg/dL (65-115); Osmolality Calculated 293 mOsm/kg (285-295); Sodium 140 mmol/L (136-145); Total Bilirubin 0.2 mg/dL (0.15-1.2); Total Protein 6.1 g/dL (6.6-8.7)
[2021-08-19 10:49] LABS: Anion Gap 11.8 (5-19); Aspartate Amino Transferase 16 U/L (0-40); Potassium 4.8 mmol/L (3.5-5.1)
--- NOTE | 2021-08-22 10:23 | ONC FU_ITS ---
Dr. Mcintyre Patient Follow-Up Note Patient: Dereje Mcarthur Unit #: [id number]: 1955 Dicatated By: Lele Mcintyre M.D.Date of Visit:Aug 19, 2021 Onc Med Follow-up/Prog Note Chief Complaint: Metastatic urothelial adenocarcinoma. History of Present Illness: This is a 66 year-old man with metastatic adenocarcinoma consistent with urothelial primary. He has a known history of superficial bladder cancer, initially diagnosed in 2016. He had stage I disease (T1, N0, M0) for which he underwent TURBT and intravesical BCG. Had repeat TURBT and intravesical BCG recurrence in 2017 which was stage 0 (Tis, N0, M0) and again in 2018 which was stage I (T1, N0, M0). His records indicate that surveillance cystoscopy on 02/05/2021 showed evidence for BPH with moderate obstruction. In April 2021 he had presented with swelling of the right leg. His venous Doppler on 04/26/2021 showed no evidence of deep vein thrombosis. There appeared to be and enlarged lymph node in the right groin area measuring 5.7 x 2.3 cm. Further evaluation with CT abdomen/pelvis on 04/29/2021 showed numerous low-attenuation lesions throughout the liver consistent with metastatic disease. The largest was in the left lobe measuring 8.4 x 7.6 cm. A mass in the posterior right lobe measured 5.3 x 3.9 cm. There was extensive lymphadenopathy including retrocrural lymph node measuring 1.4 cm, celiac axis lymph node measuring 2.5 cm, periaortic adenopathy with maximum diameter of 4.8 x 6.6 cm, as well as left common iliac adenopathy measuring 2.0 cm and extensive lymph node burden extending along the right external iliac artery into the inguinal region. A right obturator lymph node measured 2.6 x 4.4 cm and a right inguinal lymph node measured 4.0 x 2.3 cm. There appeared to be minimal increased density within several of the vertebral bodies including T10 and L4, suspicious for early metastatic bone disease. Right inguinal lymph node biopsy on 05/07/2021 was nondiagnostic. Nuclear medicine bone scan on 05/17/2021 showed extensive metastatic disease throughout the axial skeleton which included all the ribs, sternum, cervical spine, thoracic spine, lumbar spine, and both hips. CT directed needle biopsy of the liver on 05/18/2021 showed metastatic adenocarcinoma consistent with urothelial primary. Additional imaging at that time included chest CT which showed 2 small lung nodules which were nonspecific, early metastatic disease not excluded. MRI of the brain showed no evidence of metastatic disease. He had medical oncology consultation with Dr. Yun at [facility] on 05/12/2021. With the pathology findings available, he was recommended to undergo a trial of palliative chemotherapy with cisplatin/gemcitabine. He began cycle 1 on 05/27/2021. He tolerated it without acute toxicity. He was then seen here for his further treatment. He received his cycle 1 day 8 gemcitabine on 06/03/2021 and cycle 1 day 15 gemcitabine on 06/10/2021. In the meantime, results of a next generation sequencing study had subsequently become available, and it did show a copy number gain of the HER-2/audie gene. There were no other actionable mutations identified. The tumor mutational burden was relatively low at 4.2 m/MB. I could not see that either microsatellite instability or PD-L1 expression were assessed/reported. The tumor, though, was subsequently assessed for overexpression of HER-2/audie, and that did come back positive, 3+ by IHC. His other medical illnesses have been limited to hypertension and GERD. He has a history of smoking 1 pack of cigarettes daily for 40 years, but he has quit now. INTERIM HISTORY: He was seen for a scheduled follow-up visit on 06/24/2021. At that point he was feeling better generally. His blood counts were adequate, and he then continued with cycle 2 of cisplatin/gemcitabine. The dosages remain the same. He continued with his cycle 2 day 8 treatment on 07/01/2021, but at day 15 his treatment was put on hold due to a drop in his platelet count to 55,000. He was then able to continue with his 3rd cycle of treatment on 07/22/2021. It was administered with a reduction in the gemcitabine dosage. Despite the dose reduction, his cycle 3-day 8 treatment was held due to thrombocytopenia. At that point, he had developed significant swelling in his right leg, and a venous Doppler study on 07/28/2021 showed acute deep vein thrombosis involving the right popliteal and gastrocnemius veins. With that finding, he began on anticoagulation with apixaban.. He was able to continue with his cycle 3-day 15 gemcitabine on 08/09/2021. He is seen for a follow-up visit. He was to have restaging CT scans prior to his 4th cycle of chemotherapy, but for some reason that study did not get scheduled until next week. He has been feeling pretty good generally. His energy has been okay. He is able to do light work. ECOG score is 1. He has good appetite. He has not had fever. He occasionally has some slight sweating at night. He complains that his nose runs a little bit. He has not had sore mouth or throat. He does not complain of cough, and he has not been having shortness of breath or chest pain. He has no GI complaints other than occasional acid reflux. He has frequent urination. He is not having any significant joint or bone pain. The swelling in his right leg has been improving with the anticoagulation. He does not complain of headache or dizziness, and he has no focal neurologic symptoms. Medications: Apixaban 1 Tablet (of 5 mg) Oral b.i.d., Baclofen Tablet Oral, Dexamethasone Tablet Oral, Famotidine 1 Tablet (of 40 mg) Oral daily, HYDROcodone-Acetaminophen 1 Tablet (of 5-325 mg) Oral q 4 hours PRN, Magnesium Citrate Solution Oral PRN, Metoclopramide HCl 1 Tablet (of 5 mg) Oral four times a day, Metoprolol Tartrate 1 Tablet (of 25 mg) Oral b.i.d., Morphine Sulfate ER 1 Tablet (of 30 mg) Tablet, controlled release Oral b.i.d., Ondansetron HCl Tablet Oral, Prochlorperazine Maleate 1 Tablet (of 10 mg) Oral t.i.d. PRN, Rolapitant HCl (180 MG Dose) Tablet Therapy Pack Oral, Senna S 1 Tablet (of 8.6-50 mg) Oral b.i.d., traMADol HCl Tablet Oral Allergies: No Known Allergies. Vital Signs: Blood pressure 170/94, pulse 61, respirations 18, temp 98.4 degrees, oxygen saturation 99%. Physical Examination: Constitutional - He looks pretty good generally, Eyes - Sclerae nonicteric. Conjunctivae clear, ENMT - No lesions noted in the oral cavity, Hematologic/Lymphatic - No cervical, clavicular, or axillary adenopathy, Respiratory - Lungs are clear with good air movement bilaterally, Cardiovascular - Heart rhythm is regular. There is no murmur, gallop, or rub noted, Abdomen - Soft. Liver and spleen are not enlarged. There is no abdominal mass or ascites noted and there is no inguinal adenopathy, Extremities - There is sitll mild swelling of the right leg, Neurologic - No focal neurologic deficits noted. Lab/Imaging: Test performed on Aug 19, 2021 10:03 Sodium 140 mmol/L Potassium 4.8 mmol/L Chloride 108 mmol/L CO2 25 mmol/L Anion Gap 11.8 BUN 22 mg/dL Creatinine 0.8 mg/dL Cr Clearance (Est) 152.3800 mL/min eGFR 97.0 mL/min Glucose 85 mg/dL Osmolality - Calculated 293 mOsm/kg Calcium 8.5 mg/dL Protein, Total 6.1 g/dL Albumin 3.5 g/dL Globulin 2.6 g/dL Bilirubin, Total 0.2 mg/dL ALT (SGPT) 19 U/L AST (SGOT) 16 U/L Alkaline Phosphatase 63 IU/L WBC 8.8 10 3/uL RBC 4.08 10 6/uL HGB 12.7 g/dL HCT 39.2 % MCV 96.1 fl MCH 31.1 pg MCHC 32.4 g/dL RDW 19.3 % Platelet Count 111 10 3/cmm MPV 9.8 fL Neutrophils 6.10 10 3/uL Lymphocytes 1.9 10 3/uL Monocytes 0.6 10 3/uL Eosinophils 0.0 10 3/uL Basophils 0.0 10 3/uL Neutrophil % 69.3 % Lymphocyte % 21.3 % Monocyte % 7.2 % Eosinophil % 0.1 % Basophils % 0.2 % NRBC % 0.5 % Problem List: 1. Metastatic adenocarcinoma of urothelial origin, stage IVB (Tx, N3, M1b). 2. History of superficial bladder cancer with negative surveillance cystoscopy in January 2021. 3. Hypertension. 4. GERD. Problems Addressed with this Encounter and Plan: 1. Patient with metastatic adenocarcinoma consistent with urothelial primary. He has stage IV disease with CT evidence of multiple metastatic lesions in the liver and extensive metastatic lymphadenopathy in the abdomen/pelvis. There is also extensive bony metastatic disease by nuclear medicine bone scan. He is undergoing a trial of palliative chemotherapy with cisplatin/gemcitabine for 4 cycles. Depending on response, he would then have the option to transition to maintenance immunotherapy with avelumab. He completed his 1st cycle of cisplatin/gemcitabine with no significant adverse effects. He proceeded with cycle 2 on 06/24/2021. With that cycle his day 15 treatment was held due to a drop in his platelet count to 55,000. He had no significant toxicity, and he has had complete recovery. Clinically he had evidence of response with decrease in the right inguinal mass. He continued with cycle 3 on 07/22/2021. It was administered with reduction in the gemcitabine dosage. Despite the dose reduction, his cycle 3-day 8 treatment was held due to thrombocytopenia. He received cycle 3-day 15 treatment on 08/09/2021. As his platelet count remains mildly decreased, I am going to delay his 4th cycle. He will have restaging CT scans next week. If he is confirmed to have significant response, I will have him continue treatment but on a day 1/day 15 schedule every 28 days. In the meantime, I am going to check on MSI studies and PD-L1 expression and I will then determine whether to transition to maintenance immunotherapy or consider adding targeted therapy for the HER-2/audie overexpression. 2. He has extensive metastatic involvement in bone. He will begin supportive therapy with denosumab, subject to verification of insurance coverage. 3. He was diagnosed with acute deep vein thrombosis of the right leg on 07/28/2021, and he remains on anticoagulation with apixaban. Signed By: Lele Mcintyre M.D. <<Signature on File>>
--- NOTE | 2021-08-23 | CT_ITS ---
WS: [id number] CT CHEST, ABDOMEN, AND PELVIS TECHNIQUE: Contrast-enhanced CT of the chest, abdomen, and pelvis with coronal and sagittal reformatt ed images. CLINICAL INFORMATION: BLADDER CA COMPARISON: CT abdomen pelvis 04/29 2021 DLP: 3380.[address] scans at [facility] use at least one of these dose optimization techniques: automated e xposure control; mA and/or kV adjustment per patient size (includes targeted exams where dose is matc hed to clinical indication); or iterative reconstruction. CT CHEST: Progressed bony metastatic disease throughout the visualized bony structures including the thoracic a nd lumbar spine and bony pelvis. Diffuse blastic metastasis. This is worse involving the T10 and L4 v ertebral bodies. Lungs are well aerated. No acute pulmonary infiltrates. 4 mm nodule left lower lobe along the fissure . Calcified granuloma right lower lobe. No acute pulmonary infiltrates. No focal pneumonia or pleural fluid. No mediastinal or hilar lymphadenopathy. No axillary lymphadenopathy. Normal caliber thoracic aorta. CT ABDOMEN AND PELVIS: Treated metastasis in the right hepatic lobe has decreased in size with central low-attenuation flores e today. This measures approximately 1.9 x 3.1 CM. Significant interval improvement in the left hepat ic lobe lesion anteriorly today measuring 3.9 x 5.3 cm compared to 8.4 x 7.6 cm previous. Normal sple en. Splenic granulomas. Normal GE junction. Normal pancreatic parenchymal enhancement. Adrenal glands are normal. Large left renal cysts unchanged. Bilateral renal cysts. No hydronephrosis. Normal caliber abdominal aorta. Previously described upper abdominal, periaortic, pelvic and inguinal lymphadenopathy has sig nificantly improved compared to previous. No significant upper abdominal or periaortic lymphadenopath y today. Right anterior pelvic lymph node previously described measuring 2.6 x 4.4 cm improved today measuring 2.3 x 1.2 CM. No evidence of progressed lymphadenopathy. Fat-containing left inguinal herni a. CT/CT chest abd pel w con* IMPRESSION: 1. Diffuse sclerotic bone metastasis has progressed compared to the prior exam ination throughout the visualized bony structures including the thoracic and salena mbar spine and bony pelvis. This is worse involving T10 and L4 vertebral bodies . 2. No acute pulmonary infiltrates. Lungs are well aerated. No mediastinal or h ilar lymphadenopathy. 3. Small nodule along the left fissure measuring 5 mm. 4. Previously described lymphadenopathy involving the abdomen and pelvis has s ignificantly improved and essentially resolved. 5. Treated and improved hepatic metastasis described above. 6. Stable large left renal cysts.
[2021-08-23] MEDS: iohexol 350 mg/mL 100 mL Btl IV (14:16)
[2021-08-23] MEDS: iohexol 300 mg/mL 50 mL Btl PO (14:17)
[2021-09-07 14:02] LABS: Alanine Aminotransferase 15 U/L (0-41); Albumin Level 3.8 g/dL (3.5-5.2); Alkaline Phosphatase 64 IU/L (40-130); Blood Urea Nitrogen 20 mg/dL (8-23); Calcium 8.3 mg/dL (8.5-10.5); Carbon Dioxide 22 mmol/L (22-29); Chloride 107 mmol/L (98-107); Globulin 2.9 g/dL (1.3-4.6); Glomerular Filtration Rate 84.7 mL/min (90-130); Glucose 126 mg/dL (65-115); Osmolality Calculated 298 mOsm/kg (285-295); Sodium 142 mmol/L (136-145); Total Bilirubin 0.3 mg/dL (0.15-1.2); Total Protein 6.7 g/dL (6.6-8.7)
[2021-09-07 14:04] LABS: Anion Gap 17.7 (5-19); Aspartate Amino Transferase 16 U/L (0-40); Basophils % 0.5 %; Eosinophils # 0.1 10^3/uL (0.0-0.8); Eosinophils % 0.7 %; Hematocrit 40.6 % (42.0-52.0); Lymphocytes # 1.7 10^3/uL (0.8-4.8); Lymphocytes % 23.3 %; Mean Corpuscular Hemoglobin 30.4 pg (28.0-34.0); Mean Corpuscular Volume 94.9 fl (80-94); Monocytes # 0.5 10^3/uL (0.2-0.9); Monocytes % 6.3 %; Neutrophils # 5.09 10^3/uL (1.8-7.7); Neutrophils % 68.5 %; Nucleated Red Blood Cells % 0 %; Platelet Count 178 10^3/cmm (130-400); Potassium 4.7 mmol/L (3.5-5.1); Red Blood Count 4.28 10^6/uL (4.1-5.3); Red Cell Distribution Width 15.1 % (12.1-15.1); White Blood Count 7.4 10^3/uL (4.0-10.0)
[2021-09-08] MEDS: sodium chloride 0.9% 250 ML 75 ML IV (08:45)
[2021-09-08] MEDS: palonosetron 0.25 mg/5 mL SDV IV (10:43)
[2021-09-08] MEDS: fosaprepitant 150 MG in sodium chloride 0.9% 150 ML 300 MG IV (11:00)
[2021-09-08] MEDS: FUROsemide 10 mg/mL SDV 2mL 20 MG IV (13:08)
[2021-09-08] MEDS: potassium chloride 20 MEQ in sodium chloride 0.9% 500 ML 255 MEQ IV (13:10)
[2021-09-08] MEDS: denosumab 120 mg SDV SUBCUT (13:12)
--- NOTE | 2021-09-14 12:59 | USCV_ITS ---
Dereje Mcarthur Age: 66 Gender: M : 1955 Exam Date: 09/14/2021 13:49 Ordering Phys: Lele Mcintyre MD Technologist: Joleen Donato [place] [facility] [place]ication: HIGH RISK MEDS/ MONITORING FOR HERCEPTIN BP: 126 / 72 HR: 65 Rhythm: Sinus Technical Quality: Technically difficult study MEASUREMENTS (Male / Female) Normal Values 2D ECHO LV Diastolic Diameter PLAX 5.1 cm 4.2 - 5.9 / 3.9 - 5.3 cm LV Systolic Diameter PLAX 2.1 cm IVS Diastolic Thickness 0.8 cm 0.6 - 1.0 / 0.6 - 0.9 cm IVS Systolic Thickness 1.6 cm LVPW Diastolic Thickness 1.3 cm 0.6 - 1.0 / 0.6 - 0.9 cm LVPW Systolic Thickness 2.2 cm LVOT Diameter 2.0 cm LV Ejection Fraction 2D Teich 88.2 % LV Ejection Fraction MOD 2C 60.2 % LV Ejection Fraction 2C AL 61.5 % LA Diameter 4.3 cm LA Width 3.6 cm LA Height 4.8 cm RA Width 3.4 cm RA Height 4.2 cm Aorta at Sinotubular Diameter 2.8 cm M-MODE Aortic Annulus Diameter 3.6 cm LA Ao Ratio MM 1.3 MV E Point Septal Separation 0.6 cm DOPPLER AV Peak Velocity 118.0 cm/s LVOT Peak Velocity 96.0 cm/s AV Area Cont Eq vti 2.6 cm squared AV Area Cont Eq pk 2.5 cm squared MV Peak Velocity 109.0 cm/s MV Area PHT 5.4 cm squared Mitral E to A Ratio 0.6 MV E' Velocity 29.0 cm/s Mitral E to MV E' Ratio 7.5 Mitral E to LV E' Lateral Ratio 7.6 Mitral E to LV E' Septal Ratio 7.3 TR Peak Velocity 305.7 cm/s TR Peak Gradient 37.4 mmHg TR Mean Velocity 243.6 cm/s TR Mean Gradient 25.2 mmHg TR Velocity Time Integral 76.1 cm TV Peak E Velocity 37.0 cm/s PV Peak Velocity 95.0 cm/s RV Acceleration Time 0.1 s RV Ejection Time 0.3 s RV AcT/ET 0.2 FINDINGS Left Ventricle Normal left ventricular size. LV systolic function is normal with EF of 60-65%. No regional wall motion abnormalities. Grade 1 diastolic dysfunction Right Ventricle The right ventricle is normal in size and function. Right Atrium The right atrium is normal in size. Left Atrium The left atrium is normal in size. Mitral Valve Structurally normal mitral valve without significant stenosis or prolapse. There is trace mitral regurgitation. Aortic Valve Grossly normal without significant sclerosis or stenosis. There is no aortic regurgitation. Tricuspid Valve Structurally normal tricuspid valve without significant stenosis or regurgitation. Insufficient TR jet to calculate RVSP Pulmonic Valve Structurally normal pulmonic valve without significant stenosis. There is no pulmonic regurgitation. Pericardium Normal pericardium without effusion. Aorta Normal ascending aorta dimension. CONCLUSIONS LV systolic function is normal with EF of 60-65% Grade 1 diastolic dysfunction Trace mitral regurgitation No comparison studies are available Byron Anderson MD (Electronically Signed) Final Date: 16 September 2021 09:53 S
== END 2021-09-17 23:59 | disposition home or self-care (01) ==
LOC: RAD 13:30
PROVIDERS: PCP Family Medicine; Visit Provider Internal Medicine Medical Oncology
DX: C79.19 Secondary malignant neoplasm of other urinary organs (principal); C79.51 Secondary malignant neoplasm of bone; I10 Essential (primary) hypertension; K21.9 Gastro-esophageal reflux disease without esophagitis; I82.401 Acute embolism and thrombosis of unspecified deep veins of right lower extremity; Z87.891 Personal history of nicotine dependence; Z85.51 Personal history of malignant neoplasm of bladder; Z79.01 Long term (current) use of anticoagulants
CPT/HCPCS: 36591; 71260; 74177; 80053; 85025; 93306; 96366; 96367; 96372; 96375; 96413; 96417; 99214; J0897; J1100; J1453; J1940; J2469; J3475; J3480; J7030; J7040; J7050; J9060; J9201; Q9967

== ENCOUNTER 2021-10-06 06:20 | Outpatient (RCR) | payer MEDICARE, SELFPAY ==
[2021-09-22 08:48] LABS: Basophils % 0.1 %; Eosinophils % 0.4 %; Hematocrit 38.8 % (42.0-52.0); Hemoglobin 12.8 g/dL (11.7-16.6); Lymphocytes # 1.1 10^3/uL (0.8-4.8); Mean Corpuscular Hemoglobin 30.3 pg (28.0-34.0); Mean Corpuscular Volume 91.7 fl (80-94); Mean Platelet Volume 10.7 fL (7.4-10.4); Monocytes # 0.4 10^3/uL (0.2-0.9); Monocytes % 5.2 %; Neutrophils # 5.51 10^3/uL (1.8-7.7); Neutrophils % 78.9 %; Nucleated Red Blood Cells % 0 %; Platelet Count 129 10^3/cmm (130-400); Red Blood Count 4.23 10^6/uL (4.1-5.3); Red Cell Distribution Width 13.8 % (12.1-15.1)
[2021-09-22 09:02] LABS: Alanine Aminotransferase 20 U/L (0-41); Albumin Level 3.8 g/dL (3.5-5.2); Alkaline Phosphatase 66 IU/L (40-130); Anion Gap 14.7 (5-19); Aspartate Amino Transferase 17 U/L (0-40); Blood Urea Nitrogen 11 mg/dL (8-23); Calcium 8.2 mg/dL (8.5-10.5); Carbon Dioxide 24 mmol/L (22-29); Chloride 106 mmol/L (98-107); Globulin 2.3 g/dL (1.3-4.6); Glucose 94 mg/dL (65-115); Osmolality Calculated 289 mOsm/kg (285-295); Potassium 4.7 mmol/L (3.5-5.1); Sodium 140 mmol/L (136-145); Total Bilirubin 0.2 mg/dL (0.15-1.2); Total Protein 6.1 g/dL (6.6-8.7)
[2021-09-22] MEDS: sodium chloride 0.9% 250 ML 75 ML IV (10:50)
[2021-09-22] MEDS: ondansetron 2 mg/ML SDV 2 mL 8 MG IV (10:50)
--- NOTE | 2021-09-22 19:25 | ONC FU_ITS ---
Dr. Mcintyre Patient Follow-Up Note Patient: Dereje Mcarthur Unit #: [id number]: 1955 Dicatated By: Lele Mcintyre M.D.Date of Visit:Sep 22, 2021 Onc Med Follow-up/Prog Note Chief Complaint: Metastatic urothelial adenocarcinoma. History of Present Illness: This is a 66 year-old man with metastatic adenocarcinoma consistent with urothelial primary. He has a known history of superficial bladder cancer, initially diagnosed in 2016. He had stage I disease (T1, N0, M0) for which he underwent TURBT and intravesical BCG. Had repeat TURBT and intravesical BCG recurrence in 2017 which was stage 0 (Tis, N0, M0) and again in 2018 which was stage I (T1, N0, M0). His records indicate that surveillance cystoscopy on 02/05/2021 showed evidence for BPH with moderate obstruction. In April 2021 he had presented with swelling of the right leg. His venous Doppler on 04/26/2021 showed no evidence of deep vein thrombosis. There appeared to be and enlarged lymph node in the right groin area measuring 5.7 x 2.3 cm. Further evaluation with CT abdomen/pelvis on 04/29/2021 showed numerous low-attenuation lesions throughout the liver consistent with metastatic disease. The largest was in the left lobe measuring 8.4 x 7.6 cm. A mass in the posterior right lobe measured 5.3 x 3.9 cm. There was extensive lymphadenopathy including retrocrural lymph node measuring 1.4 cm, celiac axis lymph node measuring 2.5 cm, periaortic adenopathy with maximum diameter of 4.8 x 6.6 cm, as well as left common iliac adenopathy measuring 2.0 cm and extensive lymph node burden extending along the right external iliac artery into the inguinal region. A right obturator lymph node measured 2.6 x 4.4 cm and a right inguinal lymph node measured 4.0 x 2.3 cm. There appeared to be minimal increased density within several of the vertebral bodies including T10 and L4, suspicious for early metastatic bone disease. Right inguinal lymph node biopsy on 05/07/2021 was nondiagnostic. Nuclear medicine bone scan on 05/17/2021 showed extensive metastatic disease throughout the axial skeleton which included all the ribs, sternum, cervical spine, thoracic spine, lumbar spine, and both hips. CT directed needle biopsy of the liver on 05/18/2021 showed metastatic adenocarcinoma consistent with urothelial primary. Additional imaging at that time included chest CT which showed 2 small lung nodules which were nonspecific, early metastatic disease not excluded. MRI of the brain showed no evidence of metastatic disease. He had medical oncology consultation with Dr. Yun at [facility] on 05/12/2021. With the pathology findings available, he was recommended to undergo a trial of palliative chemotherapy with cisplatin/gemcitabine. He began cycle 1 on 05/27/2021. He tolerated it without acute toxicity. He was then seen here for his further treatment. He received his cycle 1 day 8 gemcitabine on 06/03/2021 and cycle 1 day 15 gemcitabine on 06/10/2021. In the meantime, results of a next generation sequencing study had subsequently become available, and it did show a copy number gain of the HER-2/audie gene. There were no other actionable mutations identified. The tumor mutational burden was relatively low at 4.2 m/MB. I could not see that either microsatellite instability or PD-L1 expression were assessed/reported. The tumor, though, was subsequently assessed for overexpression of HER-2/audie, and that did come back positive, 3+ by IHC. His other medical illnesses have been limited to hypertension and GERD. He has a history of smoking 1 pack of cigarettes daily for 40 years, but he has quit now. INTERIM HISTORY: He was seen for a scheduled follow-up visit on 06/24/2021. At that point he was feeling better generally. His blood counts were adequate, and he then continued with cycle 2 of cisplatin/gemcitabine. The dosages remain the same. He continued with his cycle 2 day 8 treatment on 07/01/2021, but at day 15 his treatment was put on hold due to a drop in his platelet count to 55,000. He was then able to continue with his 3rd cycle of treatment on 07/22/2021. It was administered with a reduction in the gemcitabine dosage. Despite the dose reduction, his cycle 3-day 8 treatment was held due to thrombocytopenia. At that point, he had developed significant swelling in his right leg, and a venous Doppler study on 07/28/2021 showed acute deep vein thrombosis involving the right popliteal and gastrocnemius veins. With that finding, he began on anticoagulation with apixaban. He was able to continue with his cycle 3-day 15 gemcitabine on 08/09/2021. Restaging CT scans of the chest, abdomen, and pelvis on 08/23/2021 shows a 4 mm pulmonary nodule in the left lower lobe along the fissure. There were no other pulmonary nodules noted and there was no mediastinal or hilar lymphadenopathy. There was improvement in metastatic lesions in the right and left hepatic lobes and there was significant improvement in previously described upper abdominal, periaortic, pelvic, and inguinal lymphadenopathy. There was a residual right anterior pelvic lymph node measuring 2.3 x 1.2 cm. Diffuse sclerotic bone metastases were reported to have progressed. With those findings he continued with his 4th cycle of chemotherapy on 09/08/2021. It was administered with Neulasta prophylactically and with the treatment changed to a day 1/day 15 schedule. He is seen for a follow-up visit. He has been feeling pretty good generally. He still has swelling in his right leg, but he has pretty good energy and he is able to do light work. ECOG score is 1. He has good appetite. He has not had fever. He occasionally has sweating at night. He has not had sore mouth or throat. He has had a little bit of cough/chest congestion. He does not complain of shortness of breath or chest pain. He has occasional postprandial nausea. He has just very occasional acid reflux. Bowel function has been okay. He has been having more frequent urination with smaller volume voids. He has a little bit of back pain with activity. He does not complain of headache, and he has no focal neurologic symptoms. Medications: Apixaban 1 Tablet (of 5 mg) Oral b.i.d., Dexamethasone Tablet Oral, Eliquis 1 Tablet (of 5 mg) Oral b.i.d., Famotidine 1 Tablet (of 40 mg) Oral daily, HYDROcodone-Acetaminophen 1 Tablet (of 5-325 mg) Oral q 4 hours PRN, Magnesium Citrate Solution Oral PRN, Metoclopramide HCl 1 Tablet (of 5 mg) Oral four times a day, Metoprolol Tartrate 1 Tablet (of 25 mg) Oral b.i.d., Morphine Sulfate ER 1 Tablet (of 30 mg) Tablet, controlled release Oral b.i.d., Ondansetron HCl Tablet Oral, predniSONE 1 Tablet (of 10 mg) Oral daily, Prochlorperazine Maleate 1 Tablet (of 10 mg) Oral t.i.d. PRN, Rolapitant HCl (180 MG Dose) Tablet Therapy Pack Oral, Senna S 1 Tablet (of 8.6-50 mg) Oral b.i.d., traMADol HCl Tablet Oral Allergies: No Known Allergies. Vital Signs: Performed on Sep 22, 2021 10:15 Height - 73.00 in Weight - 268 lbs (LOW) BSA - 2.44 sq.m BMI - 35.36 (HIGH) Temperature - 98.4 F Pulse - 76 /min Respiration - 17 /min BP - 167/92 mm(hg) (HIGH) O2 Sat - 98 % Pain - 0 Fatigue - 0 Physical Examination: Constitutional - He looks pretty good generally, Eyes - Sclerae nonicteric. Conjunctivae clear, ENMT - No lesions noted in the oral cavity, Hematologic/Lymphatic - No cervical, clavicular, or axillary adenopathy noted, but there is some slight nodularity in the left supraclavicular fossa, Respiratory - Lungs are clear with good air movement bilaterally, Cardiovascular - Heart rhythm is regular. There is no murmur, gallop, or rub noted, Abdomen - Soft. Liver and spleen are not enlarged. There is no abdominal mass or ascites noted and there is no inguinal adenopathy, Extremities - There is residual swelling of the right leg, Neurologic - No focal neurologic deficits noted. Lab/Imaging: Test performed on Sep 22, 2021 08:30 Sodium 140 mmol/L Potassium 4.7 mmol/L Chloride 106 mmol/L CO2 24 mmol/L Anion Gap 14.7 BUN 11 mg/dL Creatinine 1.0 mg/dL Cr Clearance (Est) 121.9100 mL/min eGFR 75.0 mL/min Glucose 94 mg/dL Osmolality - Calculated 289 mOsm/kg Calcium 8.2 mg/dL Protein, Total 6.1 g/dL Albumin 3.8 g/dL Globulin 2.3 g/dL Bilirubin, Total 0.2 mg/dL ALT (SGPT) 20 U/L AST (SGOT) 17 U/L Alkaline Phosphatase 66 IU/L WBC 7.0 10 3/uL RBC 4.23 10 6/uL HGB 12.8 g/dL HCT 38.8 % MCV 91.7 fl MCH 30.3 pg MCHC 33.0 g/dL RDW 13.8 % Platelet Count 129 10 3/cmm MPV 10.7 fL Neutrophils 5.51 10 3/uL Lymphocytes 1.1 10 3/uL Monocytes 0.4 10 3/uL Eosinophils 0.0 10 3/uL Basophils 0.0 10 3/uL Neutrophil % 78.9 % Lymphocyte % 15.0 % Monocyte % 5.2 % Eosinophil % 0.4 % Basophils % 0.1 % NRBC % 0 % Problem List: 1. Metastatic adenocarcinoma of urothelial origin, stage IVB (Tx, N3, M1b). 2. History of superficial bladder cancer with negative surveillance cystoscopy in January 2021. 3. Hypertension. 4. GERD. Problems Addressed with this Encounter and Plan: 1. Patient with metastatic adenocarcinoma consistent with urothelial primary. He has stage IV disease with CT evidence of multiple metastatic lesions in the liver and extensive metastatic lymphadenopathy in the abdomen/pelvis. There is also extensive bony metastatic disease by nuclear medicine bone scan. He began a trial of palliative chemotherapy with cisplatin/gemcitabine for 4 cycles with the possible option then to transition to maintenance immunotherapy with avelumab. On next generation sequencing, his tumor was found to have a copy number gain of the HER-2/audie gene, and on further analysis it was determined to be HER-2/audie positive, 3+ by IHC. He completed his 1st cycle of cisplatin/gemcitabine with no significant adverse effects. He proceeded with cycle 2 on 06/24/2021. With that cycle his day 15 treatment was held due to a drop in his platelet count to 55,000. He had no significant toxicity, and he has had complete recovery. Clinically he had evidence of response with decrease in the right inguinal mass. He continued with cycle 3 on 07/22/2021. It was administered with reduction in the gemcitabine dosage. Despite the dose reduction, his cycle 3-day 8 treatment was held due to thrombocytopenia. He received cycle 3-day 15 treatment on 08/09/2021. His restaging CT scans on 08/23/2021 showed evidence of response with improvement in the right and hepatic lobe metastatic lesions and in the metastatic lymphadenopathy. The sclerotic bony metastatic disease was reported to have progressed, but that I think that was more likely a reflection of bone healing rather than disease progression. With those findings, he continued with cycle 4 of cisplatin/gemcitabine on 09/08/2021. It was administered with Neulasta prophylactically and with the treatment changed to a day 1/day 15 schedule. Overall, he appears to be doing well clinically. He will continue with cycle 4-day 15 gemcitabine. At this point I am not entirely certain of his further treatment. With his tumor being HER-2/audie positive, I have been trying to add Herceptin to his chemotherapy regimen. It was denied by his insurance carrier, but I am also checking to see if the medication can be obtained through patient assistance. I am somewhat reluctant about transitioning him to maintenance immunotherapy, because I suspect the trials supporting that benefit did not include patients with adenocarcinoma. I have requested a PD-L1 expression on his biopsy, which may influence that decision, but I have not been able to get those results. 2. He has extensive metastatic involvement in bone. He has started supportive therapy with denosumab. 3. He was diagnosed with acute deep vein thrombosis of the right leg on 07/28/2021, and he remains on anticoagulation with apixaban. Signed By: Lele Mcintyre M.D. <<Signature on File>>
[2021-10-06 10:04] LABS: Basophils % 0.1 %; Eosinophils % 0.1 %; Hematocrit 40.4 % (42.0-52.0); Hemoglobin 13.3 g/dL (11.7-16.6); Lymphocytes # 1.2 10^3/uL (0.8-4.8); Lymphocytes % 15.4 %; Mean Corpuscular HGB Conc 32.9 g/dL (30.0-36.0); Mean Corpuscular Hemoglobin 30.8 pg (28.0-34.0); Mean Corpuscular Volume 93.5 fl (80-94); Mean Platelet Volume 9.8 fL (7.4-10.4); Monocytes # 0.5 10^3/uL (0.2-0.9); Neutrophils # 6.08 10^3/uL (1.8-7.7); Neutrophils % 77.6 %; Nucleated Red Blood Cells % 0 %; Platelet Count 162 10^3/cmm (130-400); Red Blood Count 4.32 10^6/uL (4.1-5.3); Red Cell Distribution Width 13.9 % (12.1-15.1); White Blood Count 7.8 10^3/uL (4.0-10.0)
[2021-10-06 10:23] LABS: Alanine Aminotransferase 18 U/L (0-41); Albumin Level 3.8 g/dL (3.5-5.2); Alkaline Phosphatase 67 IU/L (40-130); Anion Gap 16.6 (5-19); Aspartate Amino Transferase 14 U/L (0-40); Blood Urea Nitrogen 16 mg/dL (8-23); Calcium 8.9 mg/dL (8.5-10.5); Carbon Dioxide 22 mmol/L (22-29); Chloride 102 mmol/L (98-107); Globulin 2.4 g/dL (1.3-4.6); Glucose 118 mg/dL (65-115); Osmolality Calculated 284 mOsm/kg (285-295); Potassium 4.6 mmol/L (3.5-5.1); Sodium 136 mmol/L (136-145); Total Bilirubin 0.2 mg/dL (0.15-1.2); Total Protein 6.2 g/dL (6.6-8.7)
[2021-10-06 13:12] LABS: Hepatitis A Antibody IgM Non-Reactive (Nonreactive); Hepatitis B Core AB, Total Non-Reactive (Nonreactive); Hepatitis B Surface AB 10.8 (11.5-1000); Hepatitis B Surface Antigen Non-Reactive (Nonreactive); Hepatitis C Virus Antibody Non-Reactive (Nonreactive)
== END 2021-10-18 23:59 | disposition home or self-care (01) ==
LOC: ONCMED 06:20
PROVIDERS: Internal Medicine Medical Oncology; PCP Family Medicine; Visit Provider Nurse Practitioner Family
DX: Z51.11 Encounter for antineoplastic chemotherapy (principal); C68.0 Malignant neoplasm of urethra; C78.7 Secondary malignant neoplasm of liver and intrahepatic bile duct; C77.8 Secondary and unspecified malignant neoplasm of lymph nodes of multiple regions; C79.51 Secondary malignant neoplasm of bone; I10 Essential (primary) hypertension; K21.9 Gastro-esophageal reflux disease without esophagitis; Z79.899 Other long term (current) drug therapy; I82.401 Acute embolism and thrombosis of unspecified deep veins of right lower extremity; Z79.01 Long term (current) use of anticoagulants; Z20.5 Contact with and (suspected) exposure to viral hepatitis; Z01.89 Encounter for other specified special examinations
CPT/HCPCS: 80053; 84443; 85025; 86705; 86706; 86709; 86803; 87340; 96367; 96375; 96413; 99215; J1100; J2405; J7050; J9201

== ENCOUNTER 2021-11-02 06:50 | Outpatient (RCR) | payer MEDICARE, SELFPAY ==
[2021-10-19 08:38] LABS: Basophils % 0.5 %; Eosinophils # 0.1 10^3/uL (0.0-0.8); Eosinophils % 0.7 %; Hematocrit 40.7 % (42.0-52.0); Hemoglobin 13.1 g/dL (11.7-16.6); Lymphocytes # 1.2 10^3/uL (0.8-4.8); Lymphocytes % 16.1 %; Mean Corpuscular HGB Conc 32.2 g/dL (30.0-36.0); Mean Corpuscular Volume 93.1 fl (80-94); Mean Platelet Volume 9.8 fL (7.4-10.4); Monocytes # 0.6 10^3/uL (0.2-0.9); Monocytes % 8.1 %; Neutrophils # 5.43 10^3/uL (1.8-7.7); Neutrophils % 73.4 %; Nucleated Red Blood Cells % 0 %; Platelet Count 142 10^3/cmm (130-400); Red Blood Count 4.37 10^6/uL (4.1-5.3); Red Cell Distribution Width 13.8 % (12.1-15.1); White Blood Count 7.4 10^3/uL (4.0-10.0)
[2021-10-19 09:06] LABS: Alanine Aminotransferase 16 U/L (0-41); Albumin Level 3.6 g/dL (3.5-5.2); Alkaline Phosphatase 63 IU/L (40-130); Aspartate Amino Transferase 15 U/L (0-40); Blood Urea Nitrogen 15 mg/dL (8-23); Calcium 8.8 mg/dL (8.5-10.5); Carbon Dioxide 26 mmol/L (22-29); Chloride 107 mmol/L (98-107); Globulin 2.6 g/dL (1.3-4.6); Glucose 98 mg/dL (65-115); Osmolality Calculated 293 mOsm/kg (285-295); Sodium 141 mmol/L (136-145); Total Bilirubin 0.3 mg/dL (0.15-1.2); Total Protein 6.2 g/dL (6.6-8.7)
[2021-10-19 09:12] LABS: Anion Gap 12.7 (5-19); Potassium 4.7 mmol/L (3.5-5.1)
[2021-10-19] MEDS: diphenhydrAMINE 50 mg/mL SDV 1mL 25 MG IVP (09:58)
[2021-10-19] MEDS: acetaminophen 325 mg Tablet 650 MG PO (10:00)
[2021-10-19] MEDS: sodium chloride 0.9% 250 ML 75 ML IV (10:00)
[2021-10-19] MEDS: denosumab 120 mg SDV SUBCUT (10:00)
--- NOTE | 2021-10-19 12:21 | ONC FU_ITS ---
Dr. Mcintyre Patient Follow-Up Note Patient: Dereje Mcarthur Unit #: [id number]: [id number] Dicatated By: Lele Mcintyre M.D.Date of Visit:Oct 19, 2021 Onc Med Follow-up/Prog Note Chief Complaint: Metastatic urothelial adenocarcinoma. History of Present Illness: This is a 66 year-old man with metastatic adenocarcinoma consistent with urothelial primary. He has a known history of superficial bladder cancer, initially diagnosed in 2016. He had stage I disease (T1, N0, M0) for which he underwent TURBT and intravesical BCG. Had repeat TURBT and intravesical BCG recurrence in 2017 which was stage 0 (Tis, N0, M0) and again in 2018 which was stage I (T1, N0, M0). His records indicate that surveillance cystoscopy on 02/05/2021 showed evidence for BPH with moderate obstruction. In April 2021 he had presented with swelling of the right leg. His venous Doppler on 04/26/2021 showed no evidence of deep vein thrombosis. There appeared to be and enlarged lymph node in the right groin area measuring 5.7 x 2.3 cm. Further evaluation with CT abdomen/pelvis on 04/29/2021 showed numerous low-attenuation lesions throughout the liver consistent with metastatic disease. The largest was in the left lobe measuring 8.4 x 7.6 cm. A mass in the posterior right lobe measured 5.3 x 3.9 cm. There was extensive lymphadenopathy including retrocrural lymph node measuring 1.4 cm, celiac axis lymph node measuring 2.5 cm, periaortic adenopathy with maximum diameter of 4.8 x 6.6 cm, as well as left common iliac adenopathy measuring 2.0 cm and extensive lymph node burden extending along the right external iliac artery into the inguinal region. A right obturator lymph node measured 2.6 x 4.4 cm and a right inguinal lymph node measured 4.0 x 2.3 cm. There appeared to be minimal increased density within several of the vertebral bodies including T10 and L4, suspicious for early metastatic bone disease. Right inguinal lymph node biopsy on 05/07/2021 was nondiagnostic. Nuclear medicine bone scan on 05/17/2021 showed extensive metastatic disease throughout the axial skeleton which included all the ribs, sternum, cervical spine, thoracic spine, lumbar spine, and both hips. CT directed needle biopsy of the liver on 05/18/2021 showed metastatic adenocarcinoma consistent with urothelial primary. Additional imaging at that time included chest CT which showed 2 small lung nodules which were nonspecific, early metastatic disease not excluded. MRI of the brain showed no evidence of metastatic disease. He had medical oncology consultation with Dr. Yun at [facility] on 05/12/2021. With the pathology findings available, he was recommended to undergo a trial of palliative chemotherapy with cisplatin/gemcitabine. He began cycle 1 on 05/27/2021. He tolerated it without acute toxicity. He was then seen here for his further treatment. He received his cycle 1 day 8 gemcitabine on 06/03/2021 and cycle 1 day 15 gemcitabine on 06/10/2021. In the meantime, results of a next generation sequencing study had subsequently become available, and it did show a copy number gain of the HER-2/audie gene. There were no other actionable mutations identified. The tumor mutational burden was relatively low at 4.2 m/MB. I could not see that either microsatellite instability or PD-L1 expression were assessed/reported. The tumor, though, was subsequently assessed for overexpression of HER-2/audie, and that did come back positive, 3+ by IHC. He was seen for a scheduled follow-up visit on 06/24/2021. At that point he was feeling better generally. His blood counts were adequate, and he then continued with cycle 2 of cisplatin/gemcitabine. The dosages remain the same. He continued with his cycle 2 day 8 treatment on 07/01/2021, but at day 15 his treatment was put on hold due to a drop in his platelet count to 55,000. He was then able to continue with his 3rd cycle of treatment on 07/22/2021. It was administered with a reduction in the gemcitabine dosage. Despite the dose reduction, his cycle 3-day 8 treatment was held due to thrombocytopenia. At that point, he had developed significant swelling in his right leg, and a venous Doppler study on 07/28/2021 showed acute deep vein thrombosis involving the right popliteal and gastrocnemius veins. With that finding, he began on anticoagulation with apixaban. He was able to continue with his cycle 3-day 15 gemcitabine on 08/09/2021. Restaging CT scans of the chest, abdomen, and pelvis on 08/23/2021 shows a 4 mm pulmonary nodule in the left lower lobe along the fissure. There were no other pulmonary nodules noted and there was no mediastinal or hilar lymphadenopathy. There was improvement in metastatic lesions in the right and left hepatic lobes and there was significant improvement in previously described upper abdominal, periaortic, pelvic, and inguinal lymphadenopathy. There was a residual right anterior pelvic lymph node measuring 2.3 x 1.2 cm. Diffuse sclerotic bone metastases were reported to have progressed. With those findings he continued with his 4th cycle of chemotherapy on 09/08/2021. It was administered with Neulasta prophylactically and with the treatment changed to a day 1/day 15 schedule. With his disease showing significant response to the chemotherapy, he was then transitioned to maintenance immunotherapy with avelumab. His other medical illnesses have been limited to hypertension and GERD. He has a history of smoking 1 pack of cigarettes daily for 40 years, but he has quit now. INTERIM HISTORY: He began cycle 1 of maintenance avelulmab on 10/06/2021 at a fixed dosage of 800 mg by IV infusion every 2 weeks. He tolerated treatment without acute toxicity. He is seen for a follow-up visit. He has been feeling good generally. He still has some fatigue, but he is pretty much back to normal activity. He has good appetite. He has not had fever. He still occasionally has sweating. He has some sinus drainage. He has not had sore mouth or throat. He does not complain of cough, and he has not been having shortness of breath or chest pain. He currently has no GI or complaints. He has backache occasionally, but that has been going on for a long time. He has no other joint or bone pain. He does not complain of headache or dizziness, and he has no focal neurologic symptoms. Medications: Apixaban 1 Tablet (of 5 mg) Oral b.i.d., Dexamethasone Tablet Oral, Eliquis 1 Tablet (of 5 mg) Oral b.i.d., Famotidine 1 Tablet (of 40 mg) Oral daily, HYDROcodone-Acetaminophen 1 Tablet (of 5-325 mg) Oral q 4 hours PRN, Magnesium Citrate Solution Oral PRN, Metoclopramide HCl 1 Tablet (of 5 mg) Oral four times a day, Metoprolol Tartrate 1 Tablet (of 25 mg) Oral b.i.d., Morphine Sulfate ER 1 Tablet (of 30 mg) Tablet, controlled release Oral b.i.d., Ondansetron HCl Tablet Oral, predniSONE 1 Tablet (of 10 mg) Oral daily, Prochlorperazine Maleate 1 Tablet (of 10 mg) Oral t.i.d. PRN, Rolapitant HCl (180 MG Dose) Tablet Therapy Pack Oral, Senna S 1 Tablet (of 8.6-50 mg) Oral b.i.d., traMADol HCl Tablet Oral Allergies: No Known Allergies. Vital Signs: Performed on Oct 19, 2021 09:53 Height - 73.00 in Weight - 282.2 lbs (HIGH) BSA - 2.49 sq.m BMI - 37.23 (HIGH) Temperature - 98.0 F (LOW) Pulse - 68 /min Respiration - 18 /min BP - 160/78 mm(hg) (HIGH) O2 Sat - 99 % Pain - 0 Fatigue - 0 Physical Examination: Constitutional - He looks pretty good generally, Eyes - Sclerae nonicteric. Conjunctivae clear, ENMT - No lesions noted in the oral cavity, Hematologic/Lymphatic - No cervical, clavicular, or axillary adenopathy, Respiratory - Lungs are clear with good air movement bilaterally, Cardiovascular - Heart rhythm is regular. There is no murmur, gallop, or rub noted, Abdomen - Soft. Liver and spleen are not enlarged. There is no abdominal mass or ascites noted. There is no inguinal mass or adenopathy, Extremities - There is still some swelling of the right leg, Neurologic - No focal neurologic deficits noted. Lab/Imaging: Test performed on Oct 19, 2021 08:23 Sodium 141 mmol/L Potassium 4.7 mmol/L Chloride 107 mmol/L CO2 26 mmol/L Anion Gap 12.7 BUN 15 mg/dL Creatinine 1.0 mg/dL Cr Clearance (Est) 133.34 mL/min eGFR 75.0 mL/min Glucose 98 mg/dL Osmolality - Calculated 293 mOsm/kg Calcium 8.8 mg/dL Protein, Total 6.2 g/dL Albumin 3.6 g/dL Globulin 2.6 g/dL Bilirubin, Total 0.3 mg/dL ALT (SGPT) 16 U/L AST (SGOT) 15 U/L Alkaline Phosphatase 63 IU/L WBC 7.4 10 3/uL RBC 4.37 10 6/uL HGB 13.1 g/dL HCT 40.7 % MCV 93.1 fl MCH 30.0 pg MCHC 32.2 g/dL RDW 13.8 % Platelet Count 142 10 3/cmm MPV 9.8 fL Neutrophils 5.43 10 3/uL Lymphocytes 1.2 10 3/uL Monocytes 0.6 10 3/uL Eosinophils 0.1 10 3/uL Basophils 0.0 10 3/uL Neutrophil % 73.4 % Lymphocyte % 16.1 % Monocyte % 8.1 % Eosinophil % 0.7 % Basophils % 0.5 % NRBC % 0 % Problem List: 1. Metastatic adenocarcinoma of urothelial origin, stage IVB (Tx, N3, M1b). 2. History of superficial bladder cancer with negative surveillance cystoscopy in January 2021. 3. Hypertension. 4. GERD. 5. Right lower extremity deep vein thrombosis. Problems Addressed with this Encounter and Plan: 1. Patient with metastatic adenocarcinoma consistent with urothelial primary. He has stage IV disease with CT evidence of multiple metastatic lesions in the liver and extensive metastatic lymphadenopathy in the abdomen/pelvis. There is also extensive bony metastatic disease by nuclear medicine bone scan. He began a trial of palliative chemotherapy with cisplatin/gemcitabine for 4 cycles with the possible option then to transition to maintenance immunotherapy with avelumab. On next generation sequencing, his tumor was found to have a copy number gain of the HER-2/audie gene, and on further analysis it was determined to be HER-2/audie positive, 3+ by IHC. He completed his 1st cycle of cisplatin/gemcitabine with no significant adverse effects. He proceeded with cycle 2 on 06/24/2021. With that cycle his day 15 treatment was held due to a drop in his platelet count to 55,000. He had no significant toxicity, and he has had complete recovery. Clinically he had evidence of response with decrease in the right inguinal mass. He continued with cycle 3 on 07/22/2021. It was administered with reduction in the gemcitabine dosage. Despite the dose reduction, his cycle 3-day 8 treatment was held due to thrombocytopenia. He received cycle 3-day 15 treatment on 08/09/2021. His restaging CT scans on 08/23/2021 showed evidence of response with improvement in the right and hepatic lobe metastatic lesions and in the metastatic lymphadenopathy. The sclerotic bony metastatic disease was reported to have progressed, but that I think that was more likely a reflection of bone healing rather than disease progression. He then continued with cycle 4 of cisplatin/gemcitabine on 09/08/2021. It was administered with Neulasta prophylactically and with the treatment changed to a day 1/day [address] evidence of response to the chemotherapy, his treatment was then transitioned to maintenance avelumab, cycle 1 beginning on 10/06/2021. It was administered at a fixed dosage of 800 mg by IV infusion. He tolerated it without adverse effects. He will continue now with cycle 2 of avelumab. The dosage remains the same. He returns for treatment in 2 weeks and for a follow-up visit in 4 weeks. 2. He has extensive metastatic involvement in bone. He continues supportive therapy with denosumab 120 mg by subcutaneous injection. 3. He was diagnosed with acute deep vein thrombosis of the right leg on 07/28/2021. He remains on anticoagulation with apixaban. Signed By: Lele Mcintyre M.D. <<Signature on File>>
[2021-11-02 09:56] LABS: Basophils % 0.5 %; Eosinophils # 0.1 10^3/uL (0.0-0.8); Eosinophils % 1.7 %; Hematocrit 42.4 % (42.0-52.0); Hemoglobin 13.7 g/dL (11.7-16.6); Lymphocytes # 1.5 10^3/uL (0.8-4.8); Lymphocytes % 23.2 %; Mean Corpuscular HGB Conc 32.3 g/dL (30.0-36.0); Mean Corpuscular Hemoglobin 29.8 pg (28.0-34.0); Mean Corpuscular Volume 92.4 fl (80-94); Mean Platelet Volume 10.2 fL (7.4-10.4); Monocytes # 0.6 10^3/uL (0.2-0.9); Monocytes % 9.4 %; Neutrophils # 4.09 10^3/uL (1.8-7.7); Neutrophils % 64.9 %; Nucleated Red Blood Cells % 0 %; Platelet Count 137 10^3/cmm (130-400); Red Blood Count 4.59 10^6/uL (4.1-5.3); Red Cell Distribution Width 13.8 % (12.1-15.1); White Blood Count 6.3 10^3/uL (4.0-10.0)
[2021-11-02 10:09] LABS: Alanine Aminotransferase 12 U/L (0-41); Albumin Level 4.2 g/dL (3.5-5.2); Alkaline Phosphatase 62 IU/L (40-130); Anion Gap 15.6 (5-19); Aspartate Amino Transferase 15 U/L (0-40); Blood Urea Nitrogen 15 mg/dL (8-23); Calcium 8.2 mg/dL (8.5-10.5); Carbon Dioxide 24 mmol/L (22-29); Chloride 108 mmol/L (98-107); Globulin 2.4 g/dL (1.3-4.6); Glomerular Filtration Rate 67.2 mL/min (90-130); Glucose 101 mg/dL (65-115); Osmolality Calculated 297 mOsm/kg (285-295); Potassium 4.6 mmol/L (3.5-5.1); Sodium 143 mmol/L (136-145); Total Bilirubin 0.6 mg/dL (0.15-1.2); Total Protein 6.6 g/dL (6.6-8.7)
[2021-11-02 10:17] LABS: Add Urine Microscopic? YES; Bilirubin Urine Neg (Negative); Blood Urine 3+ (Negative); Glucose Urine UA Norm (Normal); Ketones Urine Negative (Negative); Leukocyte Esterase Urine Negative (Negative); Nitrate Urine Negative (Negative); Protein Urine Neg (Negative); Specific Gravity, Urine 1.015 (1.005-1.030); Urine Appearance Clear (CLEAR); Urine Color Yellow (Yellow); Urobilinogen Urine 1 mg/dL (Negative); pH Urine 6 (5-7)
[2021-11-02 10:18] LABS: Add Urine Culture? Yes; Bacteria Urine TRACE /hpf; Mucus Urine 1+ /hpf; RBC Urine 80-100 /hpf (0-2); Squamous Epithelial Cell Urine 0-4 /hpf (0-5); WBC Urine 0-4 /hpf (0-5)
--- NOTE | 2021-11-02 11:02 | ONC FU_ITS ---
Adrienne Wong Progress Note Patient: Dereje Mcarthur Unit #: [id number]: 1955 Dicatated By: Adrienne Wong N.P.Date of Visit:Nov 02, 2021 Onc MED Follow-up/Prog Note Chief Complaint: Metastatic urothelial adenocarcinoma. History of Present Illness: This is a 66 year-old man with metastatic adenocarcinoma consistent with urothelial primary. He has a known history of superficial bladder cancer, initially diagnosed in 2016. He had stage I disease (T1, N0, M0) for which he underwent TURBT and intravesical BCG. Had repeat TURBT and intravesical BCG recurrence in 2017 which was stage 0 (Tis, N0, M0) and again in 2018 which was stage I (T1, N0, M0). His records indicate that surveillance cystoscopy on 02/05/2021 showed evidence for BPH with moderate obstruction. In April 2021 he had presented with swelling of the right leg. His venous Doppler on 04/26/2021 showed no evidence of deep vein thrombosis. There appeared to be and enlarged lymph node in the right groin area measuring 5.7 x 2.3 cm. Further evaluation with CT abdomen/pelvis on 04/29/2021 showed numerous low-attenuation lesions throughout the liver consistent with metastatic disease. The largest was in the left lobe measuring 8.4 x 7.6 cm. A mass in the posterior right lobe measured 5.3 x 3.9 cm. There was extensive lymphadenopathy including retrocrural lymph node measuring 1.4 cm, celiac axis lymph node measuring 2.5 cm, periaortic adenopathy with maximum diameter of 4.8 x 6.6 cm, as well as left common iliac adenopathy measuring 2.0 cm and extensive lymph node burden extending along the right external iliac artery into the inguinal region. A right obturator lymph node measured 2.6 x 4.4 cm and a right inguinal lymph node measured 4.0 x 2.3 cm. There appeared to be minimal increased density within several of the vertebral bodies including T10 and L4, suspicious for early metastatic bone disease. Right inguinal lymph node biopsy on 05/07/2021 was nondiagnostic. Nuclear medicine bone scan on 05/17/2021 showed extensive metastatic disease throughout the axial skeleton which included all the ribs, sternum, cervical spine, thoracic spine, lumbar spine, and both hips. CT directed needle biopsy of the liver on 05/18/2021 showed metastatic adenocarcinoma consistent with urothelial primary. Additional imaging at that time included chest CT which showed 2 small lung nodules which were nonspecific, early metastatic disease not excluded. MRI of the brain showed no evidence of metastatic disease. He had medical oncology consultation with Dr. Yun at [facility] on 05/12/2021. With the pathology findings available, he was recommended to undergo a trial of palliative chemotherapy with cisplatin/gemcitabine. He began cycle 1 on 05/27/2021. He tolerated it without acute toxicity. He was then seen here for his further treatment. He received his cycle 1 day 8 gemcitabine on 06/03/2021 and cycle 1 day 15 gemcitabine on 06/10/2021. In the meantime, results of a next generation sequencing study had subsequently become available, and it did show a copy number gain of the HER-2/audie gene. There were no other actionable mutations identified. The tumor mutational burden was relatively low at 4.2 m/MB. I could not see that either microsatellite instability or PD-L1 expression were assessed/reported. The tumor, though, was subsequently assessed for overexpression of HER-2/audie, and that did come back positive, 3+ by IHC. He was seen for a scheduled follow-up visit on 06/24/2021. At that point he was feeling better generally. His blood counts were adequate, and he then continued with cycle 2 of cisplatin/gemcitabine. The dosages remain the same. He continued with his cycle 2 day 8 treatment on 07/01/2021, but at day 15 his treatment was put on hold due to a drop in his platelet count to 55,000. He was then able to continue with his 3rd cycle of treatment on 07/22/2021. It was administered with a reduction in the gemcitabine dosage. Despite the dose reduction, his cycle 3-day 8 treatment was held due to thrombocytopenia. At that point, he had developed significant swelling in his right leg, and a venous Doppler study on 07/28/2021 showed acute deep vein thrombosis involving the right popliteal and gastrocnemius veins. With that finding, he began on anticoagulation with apixaban. He was able to continue with his cycle 3-day 15 gemcitabine on 08/09/2021. Restaging CT scans of the chest, abdomen, and pelvis on 08/23/2021 shows a 4 mm pulmonary nodule in the left lower lobe along the fissure. There were no other pulmonary nodules noted and there was no mediastinal or hilar lymphadenopathy. There was improvement in metastatic lesions in the right and left hepatic lobes and there was significant improvement in previously described upper abdominal, periaortic, pelvic, and inguinal lymphadenopathy. There was a residual right anterior pelvic lymph node measuring 2.3 x 1.2 cm. Diffuse sclerotic bone metastases were reported to have progressed. With those findings he continued with his 4th cycle of chemotherapy on 09/08/2021. It was administered with Neulasta prophylactically and with the treatment changed to a day 1/day 15 schedule. With his disease showing significant response to the chemotherapy, he was then transitioned to maintenance immunotherapy with avelumab. His other medical illnesses have been limited to hypertension and GERD. He has a history of smoking 1 pack of cigarettes daily for 40 years, but he has quit now. INTERIM HISTORY: He began cycle 1 of maintenance avelulmab on 10/06/2021 at a fixed dosage of 800 mg by IV infusion every 2 weeks. He tolerated treatment without acute toxicity. Patient presents today for his maintenance infusion of avelumab but is concerned that he is having hematuria. He denies dysuria or abdominal pain. But he has had blood in his urine on and off for the past week. He states at times it is clear and at other times there is blood. He denies clots. He denies difficulty urinating. No fever, chills, night sweats. Review Of Symptoms:Review of Systems is not available for this patient. Past Medical History: Gastroesophageal reflux disease Hypertension Superficial bladder cancer Past Surgical History: Right foot surgery TURBT and intravesical BCG in 2016, 2017 and 2018 Covid vaccine #3 in 2020 [employer] left subclavian-Dr. Cam in 2020 [address] directed needle biopsy of the liver in 2020 Right inguinal lymph node biopsy in 2020 Covid vaccine in 2020 Covid vaccine #1 in 2020 Excision of benign neck tumor in 2013 Allergies: No Known Allergies. Medications: Apixaban 1 Tablet (of 5 mg) Oral b.i.d. Dexamethasone Tablet Oral Eliquis 1 Tablet (of 5 mg) Oral b.i.d. Famotidine 1 Tablet (of 40 mg) Oral daily HYDROcodone-Acetaminophen 1 Tablet (of 5-325 mg) Oral q 4 hours PRN Magnesium Citrate Solution Oral PRN Metoclopramide HCl 1 Tablet (of 5 mg) Oral four times a day Metoprolol Tartrate 1 Tablet (of 25 mg) Oral b.i.d. Morphine Sulfate ER 1 Tablet (of 30 mg) Tablet, controlled release Oral b.i.d. Ondansetron HCl Tablet Oral predniSONE 1 Tablet (of 10 mg) Oral daily Prochlorperazine Maleate 1 Tablet (of 10 mg) Oral t.i.d. PRN Rolapitant HCl (180 MG Dose) Tablet Therapy Pack Oral Senna S 1 Tablet (of 8.6-50 mg) Oral b.i.d. traMADol HCl Tablet Oral Family History: Father in his late 80s. He had prostate cancer, but he apparently of old age. Mother had diabetes. He had one brother who with coronary artery disease. One sister is still living. Social History: Mr. Mcarthur is . He is a daily smoker. He has no history of drinking. He has a history of smoking 1 pack of cigarettes daily for 40 years. He just recently quit. He has very little alcohol use. Physical Examination: Performed on Nov 02, 2021 08:56: Height - 73.00 in, Weight - 276.0 lbs (LOW), BSA - 2.47 sq.m, BMI - 36.41 (HIGH), Temperature - 98.1 F (LOW), Pulse - 71 /min, Respiration - 16 /min, BP - 190/70 mm(hg) (HIGH), O2 Sat - 99 %, Pain - 0, and Fatigue - 4. Performance Status: 0 - Fully active, able to carry on all predisease activities without restrictions. (ECOG) Constitutional Alert, cooperative, oriented. Mood and affect appropriate. Appears close to chronological age. Well nourished. Well developed. Head Normocephalic; no scars. Eyes Conjunctivae and sclerae are clear and without icterus. Pupils are reactive and equal. Respiratory Lungs are clear to auscultation without rhonchi or wheezing. Cardiovascular Regular rate and rhythm of heart without murmurs, gallops or rubs. Abdomen Non-tender, non-distended, no masses, ascites or hepatosplenomegaly. Good bowel sounds. No guarding or rebound tenderness. Extremities No visible deformities, no cyanosis, clubbing or edema. Pulses 3+ and equal bilaterally. Psychiatric Alert and oriented times three. Coherent speech. Verbalizes understanding of our discussions today. Laboratory: Test performed on Nov 02, 2021 09:30 Sodium 143 mmol/L Potassium 4.6 mmol/L Chloride 108 mmol/L CO2 24 mmol/L Anion Gap 15.6 BUN 15 mg/dL Creatinine 1.1 mg/dL Cr Clearance (Est) 118.5500 mL/min eGFR 67.2 mL/min Glucose 101 mg/dL Osmolality - Calculated 297 mOsm/kg Calcium 8.2 mg/dL Protein, Total 6.6 g/dL Albumin 4.2 g/dL Globulin 2.4 g/dL Bilirubin, Total 0.6 mg/dL ALT (SGPT) 12 U/L AST (SGOT) 15 U/L Alkaline Phosphatase 62 IU/L Ua Color Yellow WBC 6.3 10 3/uL Ua Appearance Clear RBC 4.59 10 6/uL Ua Glucose Norm HGB 13.7 g/dL Ua Bilirubin Neg HCT 42.4 % Ua Ketones Negative MCV 92.4 fl Ua Specific [place] 1.015 MCH 29.8 pg Ua Blood 3+ MCHC 32.3 g/dL Ua pH 6 RDW 13.8 % Ua Protein Neg Platelet Count 137 10 3/cmm MPV 10.2 fL Ua Urobilinogen 1 mg/dL Neutrophils 4.09 10 3/uL Ua Nitrites Negative Lymphocytes 1.5 10 3/uL Ua Leukocyte Esterase Negative Monocytes 0.6 10 3/uL Eosinophils 0.1 10 3/uL Basophils 0.0 10 3/uL Neutrophil % 64.9 % Lymphocyte % 23.2 % Monocyte % 9.4 % Eosinophil % 1.7 % Basophils % 0.5 % NRBC % 0 % Ua Micro: WBC 0-4 /hpf Ua Micro: RBC 80-100 /hpf Ua Micro: Squam Epith Cells 0-4 /hpf Ua Micro: Bacteria TRACE /hpf Ua Micro: Mucous 1+ /hpf Impression: 1. Metastatic adenocarcinoma of urothelial origin, stage IVB (Tx, N3, M1b). 2. History of superficial bladder cancer with negative surveillance cystoscopy in January 2021. 3. Hypertension. 4. GERD. 5. Right lower extremity deep vein thrombosis. Plan: 1. Patient with metastatic adenocarcinoma consistent with urothelial primary. He has stage IV disease with CT evidence of multiple metastatic lesions in the liver and extensive metastatic lymphadenopathy in the abdomen/pelvis. There is also extensive bony metastatic disease by nuclear medicine bone scan. He began a trial of palliative chemotherapy with cisplatin/gemcitabine for 4 cycles with the possible option then to transition to maintenance immunotherapy with avelumab. On next generation sequencing, his tumor was found to have a copy number gain of the HER-2/audie gene, and on further analysis it was determined to be HER-2/audie positive, 3+ by IHC. He completed his 1st cycle of cisplatin/gemcitabine with no significant adverse effects. He proceeded with cycle 2 on 06/24/2021. With that cycle his day 15 treatment was held due to a drop in his platelet count to 55,000. He had no significant toxicity, and he has had complete recovery. Clinically he had evidence of response with decrease in the right inguinal mass. He continued with cycle 3 on 07/22/2021. It was administered with reduction in the gemcitabine dosage. Despite the dose reduction, his cycle 3-day 8 treatment was held due to thrombocytopenia. He received cycle 3-day 15 treatment on 08/09/2021. His restaging CT scans on 08/23/2021 showed evidence of response with improvement in the right and hepatic lobe metastatic lesions and in the metastatic lymphadenopathy. The sclerotic bony metastatic disease was reported to have progressed, but that I think that was more likely a reflection of bone healing rather than disease progression. He then continued with cycle 4 of cisplatin/gemcitabine on 09/08/2021. It was administered with Neulasta prophylactically and with the treatment changed to a day 1/day [address] evidence of response to the chemotherapy, his treatment was then transitioned to maintenance avelumab, cycle 1 beginning on 10/06/2021. It was administered at a fixed dosage of 800 mg by IV infusion. He tolerated it without adverse effects. He presented today for treatment but due to hematuria it will be held. We will obtain a stat PET scan and refer to Dr. Blakely for cystoscopy for further evaluation. We will have him follow-up after PET scan and visit with Dr. Blakely. 2. He has extensive metastatic involvement in bone. He continues supportive therapy with denosumab 120 mg by subcutaneous injection. 3. He was diagnosed with acute deep vein thrombosis of the right leg on 07/28/2021. He remains on anticoagulation with apixaban. Signed By: Adrienne Wong N.P. <<Signature on File>>
== END 2021-11-15 23:59 | disposition home or self-care (01) ==
LOC: ONCMED 06:50
PROVIDERS: Nurse Practitioner Family; PCP Family Medicine; Visit Provider Internal Medicine Medical Oncology
DX: Z51.12 Encounter for antineoplastic immunotherapy (principal); Z51.11 Encounter for antineoplastic chemotherapy; C67.9 Malignant neoplasm of bladder, unspecified; C78.7 Secondary malignant neoplasm of liver and intrahepatic bile duct; C77.8 Secondary and unspecified malignant neoplasm of lymph nodes of multiple regions; C79.51 Secondary malignant neoplasm of bone; I10 Essential (primary) hypertension; K21.9 Gastro-esophageal reflux disease without esophagitis; I82.401 Acute embolism and thrombosis of unspecified deep veins of right lower extremity; Z79.899 Other long term (current) drug therapy
CPT/HCPCS: 36591; 80053; 81001; 85025; 87086; 96372; 96375; 96413; 99215; J0897; J1200; J7050; J9023

== ENCOUNTER 2021-12-10 07:04 | Outpatient (RCR) | payer MEDICARE, SELFPAY ==
[2021-11-23 08:57] LABS: Basophils % 0.4 %; Eosinophils # 0.1 10^3/uL (0.0-0.8); Eosinophils % 1.6 %; Hematocrit 39.9 % (42.0-52.0); Lymphocytes # 1.3 10^3/uL (0.8-4.8); Lymphocytes % 16.9 %; Mean Corpuscular HGB Conc 32.6 g/dL (30.0-36.0); Mean Corpuscular Hemoglobin 29.1 pg (28.0-34.0); Mean Corpuscular Volume 89.3 fl (80-94); Mean Platelet Volume 10.4 fL (7.4-10.4); Monocytes # 0.4 10^3/uL (0.2-0.9); Monocytes % 5.9 %; Neutrophils # 5.56 10^3/uL (1.8-7.7); Neutrophils % 74.7 %; Nucleated Red Blood Cells % 0 %; Platelet Count 156 10^3/cmm (130-400); Red Blood Count 4.47 10^6/uL (4.1-5.3); Red Cell Distribution Width 13.5 % (12.1-15.1); White Blood Count 7.5 10^3/uL (4.0-10.0)
[2021-11-23 09:32] LABS: Alanine Aminotransferase 10 U/L (0-41); Albumin Level 4.1 g/dL (3.5-5.2); Alkaline Phosphatase 63 IU/L (40-130); Anion Gap 14.6 (5-19); Aspartate Amino Transferase 13 U/L (0-40); Blood Urea Nitrogen 23 mg/dL (8-23); Calcium 9.6 mg/dL (8.5-10.5); Carbon Dioxide 24 mmol/L (22-29); Chloride 106 mmol/L (98-107); Globulin 2.9 g/dL (1.3-4.6); Glomerular Filtration Rate 84.7 mL/min (90-130); Glucose 95 mg/dL (65-115); Osmolality Calculated 293 mOsm/kg (285-295); Potassium 4.6 mmol/L (3.5-5.1); Prostate Specific Antigen 0.538 ng/mL (0-4); Sodium 140 mmol/L (136-145); Total Bilirubin 0.4 mg/dL (0.15-1.2)
--- NOTE | 2021-11-24 07:42 | ONC FU_ITS ---
Dr. Mcintyre Patient Follow-Up Note Patient: Dereje Mcarthur Unit #: [id number]: 1955 Dicatated By: Lele Mcintyre M.D.Date of Visit:Nov 23, 2021 Onc Med Follow-up/Prog Note Chief Complaint: Metastatic urothelial adenocarcinoma. History of Present Illness: This is a 66 year-old man with metastatic adenocarcinoma consistent with urothelial primary. He has a known history of superficial bladder cancer, initially diagnosed in 2016. He had stage I disease (T1, N0, M0) for which he underwent TURBT and intravesical BCG. Had repeat TURBT and intravesical BCG recurrence in 2017 which was stage 0 (Tis, N0, M0) and again in 2018 which was stage I (T1, N0, M0). His records indicate that surveillance cystoscopy on 02/05/2021 showed evidence for BPH with moderate obstruction. In April 2021 he had presented with swelling of the right leg. His venous Doppler on 04/26/2021 showed no evidence of deep vein thrombosis. There appeared to be and enlarged lymph node in the right groin area measuring 5.7 x 2.3 cm. Further evaluation with CT abdomen/pelvis on 04/29/2021 showed numerous low-attenuation lesions throughout the liver consistent with metastatic disease. The largest was in the left lobe measuring 8.4 x 7.6 cm. A mass in the posterior right lobe measured 5.3 x 3.9 cm. There was extensive lymphadenopathy including retrocrural lymph node measuring 1.4 cm, celiac axis lymph node measuring 2.5 cm, periaortic adenopathy with maximum diameter of 4.8 x 6.6 cm, as well as left common iliac adenopathy measuring 2.0 cm and extensive lymph node burden extending along the right external iliac artery into the inguinal region. A right obturator lymph node measured 2.6 x 4.4 cm and a right inguinal lymph node measured 4.0 x 2.3 cm. There appeared to be minimal increased density within several of the vertebral bodies including T10 and L4, suspicious for early metastatic bone disease. Right inguinal lymph node biopsy on 05/07/2021 was nondiagnostic. Nuclear medicine bone scan on 05/17/2021 showed extensive metastatic disease throughout the axial skeleton which included all the ribs, sternum, cervical spine, thoracic spine, lumbar spine, and both hips. CT directed needle biopsy of the liver on 05/18/2021 showed metastatic adenocarcinoma consistent with urothelial primary. Additional imaging at that time included chest CT which showed 2 small lung nodules which were nonspecific, early metastatic disease not excluded. MRI of the brain showed no evidence of metastatic disease. He had medical oncology consultation with Dr. Yun at [facility] on 05/12/2021, and he was recommended to undergo a trial of palliative chemotherapy with cisplatin/gemcitabine. He began cycle 1 on 05/27/2021. He tolerated it without acute toxicity. He was then seen here for his further treatment. He received his cycle 1 day 8 gemcitabine on 06/03/2021 and cycle 1 day 15 gemcitabine on 06/10/2021. In the meantime, results of a next generation sequencing study had subsequently become available, and it did show a copy number gain of the HER-2/audie gene. There were no other actionable mutations identified. The tumor mutational burden was relatively low at 4.2 m/MB. I could not see that either microsatellite instability or PD-L1 expression were assessed/reported. The tumor, though, was subsequently assessed for overexpression of HER-2/audie, and that did come back positive, 3+ by IHC. He was seen for a scheduled follow-up visit on 06/24/2021. At that point he was feeling better generally. His blood counts were adequate, and he then continued with cycle 2 of cisplatin/gemcitabine. The dosages remained the same. He continued with his cycle 2 day 8 treatment on 07/01/2021, but at day 15 his treatment was put on hold due to a drop in his platelet count to 55,000. He was then able to continue with his 3rd cycle of treatment on 07/22/2021. It was administered with a reduction in the gemcitabine dosage. Despite the dose reduction, his cycle 3-day 8 treatment was held due to thrombocytopenia. At that point, he had developed significant swelling in his right leg, and a venous Doppler study on 07/28/2021 showed acute deep vein thrombosis involving the right popliteal and gastrocnemius veins. With that finding, he began on anticoagulation with apixaban. He was able to continue with his cycle 3-day 15 gemcitabine on 08/09/2021. Restaging CT scans of the chest, abdomen, and pelvis on 08/23/2021 showed a 4 mm pulmonary nodule in the left lower lobe along the fissure. There were no other pulmonary nodules noted and there was no mediastinal or hilar lymphadenopathy. There was improvement in metastatic lesions in the right and left hepatic lobes and there was significant improvement in previously described upper abdominal, periaortic, pelvic, and inguinal lymphadenopathy. There was a residual right anterior pelvic lymph node measuring 2.3 x 1.2 cm. Diffuse sclerotic bone metastases were reported to have progressed. With those findings he continued with his 4th cycle of chemotherapy on 09/08/2021. It was administered with Neulasta prophylactically and with the treatment changed to a day 1/day 15 schedule. With his disease showing significant response to the chemotherapy, he was then transitioned to maintenance immunotherapy with avelumab. His other medical illnesses have been limited to hypertension and GERD. He has a history of smoking 1 pack of cigarettes daily for 40 years, but he has quit now. INTERIM HISTORY: He began cycle 1 of maintenance avelulmab on 10/06/2021 at a fixed dosage of 800 mg by IV infusion every 2 weeks. He tolerated treatment without acute toxicity, and he continued with cycle 2 on 10/19/2021. At his scheduled follow-up visit on 11/02/2021 his treatment was put on hold due to development of gross hematuria. He was then scheduled for follow-up with his urologist in [place], Dr. Jn Mccray, and he also was scheduled for restaging PET/CT. I did not receive a report from Dr. Mccray, but according to the patient his cystoscopy showed no significant abnormalities in the bladder. As such, the cause for the hematuria remains uncertain, but it did resolve. In the meantime, his restaging PET/CT on 11/16/2021 showed a large calcified nodule in the right lung base. There were no other pulmonary nodules noted and there was no axillary or mediastinal pathologic lymphadenopathy. There were no focal lesions noted in the liver, and there was no pathologic lymphadenopathy in the abdomen/pelvis. The prostate demonstrated a peripheral zone increase in metabolic activity with maximum SUV of 10.50. There was noted to be extensive osseous involvement with focally increased metabolic activity and with sclerotic changes noted in areas of nonfocal increase of metabolic activity. The involved osseous structures included both ischial bones, right acetabulum, left posterior acetabulum, lower sacrum, right iliac bone, left iliac bone, multiple thoracic vertebral bodies, multiple ribs, and both scapula. There were no lytic lesions noted. Overall, the findings were felt to be suspicious for extensive bony metastatic disease and possible primary malignancy in the prostate. He is seen for a follow-up visit. His main complaint is that over the past 3 weeks or so he has had increasing pain in the posterior right hip area radiating down the back of the right leg. He also has pain in his right knee and in the lower right leg/ankle. The pain has become severe enough that he can hardly walk, and he has been having to take his hydrocodone/APAP on a pretty regular basis. His activity now is very limited. ECOG score is 3. His appetite is okay. He has not had fever or night sweats. He complains that he is freezing to . He has some sinus drainage. He has not had sore mouth or throat. He does not complain of cough, and he has not been having shortness of breath or chest pain. He has no GI complaints. He has some urinary frequency, but he has no dysuria and he has had no recurrence of hematuria. He has no other joint or bone pain. He does not complain of headache or dizziness. He sometimes has numbness in his feet. Medications: Apixaban 1 Tablet (of 5 mg) Oral b.i.d., Dexamethasone Tablet Oral, Eliquis 1 Tablet (of 5 mg) Oral b.i.d., Famotidine 1 Tablet (of 40 mg) Oral daily, HYDROcodone-Acetaminophen 1 Tablet (of 5-325 mg) Oral q 4 hours PRN, Magnesium Citrate Solution Oral PRN, Metoclopramide HCl 1 Tablet (of 5 mg) Oral four times a day, Metoprolol Tartrate 1 Tablet (of 25 mg) Oral b.i.d., Morphine Sulfate ER 1 Tablet (of 30 mg) Tablet, controlled release Oral b.i.d., Ondansetron HCl Tablet Oral, predniSONE 1 Tablet (of 10 mg) Oral daily, Prochlorperazine Maleate 1 Tablet (of 10 mg) Oral t.i.d. PRN, Rolapitant HCl (180 MG Dose) Tablet Therapy Pack Oral, Senna S 1 Tablet (of 8.6-50 mg) Oral b.i.d., traMADol HCl Tablet Oral Allergies: No Known Allergies. Vital Signs: Performed on Nov 23, 2021 10:14 Height - 73.00 in Weight - 275.0 lbs (LOW) BSA - 2.46 sq.m BMI - 36.28 (HIGH) Temperature - 97.6 F (LOW) Pulse - 68 /min Respiration - 18 /min BP - 162/84 mm(hg) (HIGH) O2 Sat - 97 % Pain - 8 Fatigue - 7 Physical Examination: Constitutional - He still looks pretty good generally, though he does have limited mobility, Eyes - Sclerae nonicteric. Conjunctivae clear, ENMT - No lesions noted in the oral cavity, Hematologic/Lymphatic - No cervical, clavicular, or axillary adenopathy, Respiratory - Lungs sound clear with good air movement bilaterally, Cardiovascular - Heart rhythm is regular. There is no murmur, gallop, or rub noted, Abdomen - Soft. Liver and spleen are not enlarged. There is no abdominal mass or ascites noted. There is no inguinal mass or adenopathy, Back/Spine - There is no significant bony tenderness in the spine. The origin of his pain localizes to the right sacroiliac area, Extremities - There is persistent swelling of the right leg, Neurologic - He does not appear to have any associated neurologic deficit. Lab/Imaging: Test performed on Nov 23, 2021 08:35 Sodium 140 mmol/L Potassium 4.6 mmol/L Chloride 106 mmol/L CO2 24 mmol/L Anion Gap 14.6 BUN 23 mg/dL Creatinine 0.9 mg/dL Cr Clearance (Est) 144.38 mL/min eGFR 84.7 mL/min Glucose 95 mg/dL Osmolality - Calculated 293 mOsm/kg Calcium 9.6 mg/dL Protein, Total 7.0 g/dL Albumin 4.1 g/dL Globulin 2.9 g/dL Bilirubin, Total 0.4 mg/dL ALT (SGPT) 10 U/L AST (SGOT) 13 U/L Alkaline Phosphatase 63 IU/L WBC 7.5 10 3/uL RBC 4.47 10 6/uL HGB 13.0 g/dL HCT 39.9 % MCV 89.3 fl MCH 29.1 pg MCHC 32.6 g/dL RDW 13.5 % Platelet Count 156 10 3/cmm MPV 10.4 fL Neutrophils 5.56 10 3/uL Lymphocytes 1.3 10 3/uL Monocytes 0.4 10 3/uL Eosinophils 0.1 10 3/uL Basophils 0.0 10 3/uL Neutrophil % 74.7 % Lymphocyte % 16.9 % Monocyte % 5.9 % Eosinophil % 1.6 % Basophils % 0.4 % NRBC % 0 % PSA 0.538 ng/mL Problem List: 1. Metastatic adenocarcinoma of urothelial origin, stage IVB (Tx, N3, M1b). 2. History of superficial bladder cancer with negative surveillance cystoscopy in January 2021. 3. Hypertension. 4. GERD. 5. Right lower extremity deep vein thrombosis. Problems Addressed with this Encounter and Plan: 1. Patient with metastatic adenocarcinoma consistent with urothelial primary. He has stage IV disease with CT evidence of multiple metastatic lesions in the liver and extensive metastatic lymphadenopathy in the abdomen/pelvis. There is also extensive bony metastatic disease by nuclear medicine bone scan. He began a trial of palliative chemotherapy with cisplatin/gemcitabine for 4 cycles with the possible option then to transition to maintenance immunotherapy with avelumab. On next generation sequencing, his tumor was found to have a copy number gain of the HER-2/audie gene, and on further analysis it was determined to be HER-2/audie positive, 3+ by IHC. He completed his 1st cycle of cisplatin/gemcitabine with no significant adverse effects. He proceeded with cycle 2 on 06/24/2021. With that cycle his day 15 treatment was held due to a drop in his platelet count to 55,000. He had no significant toxicity, and he has had complete recovery. Clinically he had evidence of response with decrease in the right inguinal mass. He continued with cycle 3 on 07/22/2021. It was administered with reduction in the gemcitabine dosage. Despite the dose reduction, his cycle 3-day 8 treatment was held due to thrombocytopenia. He received cycle 3-day 15 treatment on 08/09/2021. His restaging CT scans on 08/23/2021 showed evidence of response with improvement in the right and hepatic lobe metastatic lesions and in the metastatic lymphadenopathy. The sclerotic bony metastatic disease was reported to have progressed, but that I think that was more likely a reflection of bone healing rather than disease progression. He then continued with cycle 4 of cisplatin/gemcitabine on 09/08/2021. It was administered with Neulasta prophylactically and with the treatment changed to a day 1/day [address] evidence of response to the chemotherapy, his treatment was then transitioned to maintenance avelumab, cycle 1 beginning on 10/06/2021. It was administered at a fixed dosage of 800 mg by IV infusion. He tolerated it without adverse effects. He continued with cycle 2 on 10/19/2021. As of his follow-up visit on 11/02/2021 his treatment was put on hold due to development of gross hematuria. A specific cause for that has not been determined. His repeat cystoscopy reportedly showed no abnormalities in the bladder, and hematuria subsequently resolved. In the meantime, he has developed severe pain which appears to be originating in the right sacroiliac area and rating down the right leg. His restaging PET/CT on 11/16/2021 reported extensive metastatic involvement in the bone, but it appears to be mostly due to sclerotic changes without a lot of FDG activity. He otherwise appears to have a complete response to the chemotherapy, and I am wondering to what extent the bony changes may be due to active metastatic involvement as opposed to healing of his bony metastatic disease. As the origin of his pain localizes very well to the right sacroiliac area, I am also wondering if he may not have an acute sciatica in association with the immunotherapy. As such, his treatment will remain on hold and he will begin empiric steroid therapy with prednisone, initially at 20 mg twice daily. He will be scheduled for further evaluation with MRI of the lumbar spine/pelvis. He will continue extended release morphine 30 mg every 12 hours. He can try increasing his hydrocodone/APAP to 2 tablets as needed. If the pain is not improving within a few days, he will be given a prescription for immediate release morphine to take for breakthrough pain. In the meantime, I will be reviewing the PET/CT with the radiologist soon as we have the images available. 2. He has extensive metastatic involvement in bone. He has been on supportive therapy with denosumab 120 mg by subcutaneous injection. It will temporarily be put on hold. 3. He was diagnosed with acute deep vein thrombosis of the right leg on 07/28/2021. He remains on anticoagulation with apixaban. With the increased pain and the persistent swelling of his right leg, I also will schedule a repeat venous Doppler. Signed By: Lele Mcintyre M.D. <<Signature on File>>
--- NOTE | 2021-11-24 14:29 | N.ONRAD NP_ITS ---
Radiation Oncology Consultation Patient Name: Dereje Mcarthur Date of : 1955 Date of Service: 11/24/2021 Attending Physician: Luis Tse M.D. Dereje Mcarthur was seen in consultation this afternoon at the request of Lele Mcintyre M.D. for consideration of palliative radiotherapy for the management of metastatic bladder cancer. He was initially diagnosed in April 2021 with metastatic urothelial carcinoma. He was evaluated for edema of the right leg and an enlarged right inguinal lymph node. An abdominopelvic CT scan identified multiple liver lesions and extensive abdominal and pelvic lymphadenopathy. A nuclear bone scintigraphy demonstrated widespread metastatic disease within the axial skeleton. A CT guided biopsy of a liver lesion diagnosed a metastatic adenocarcinoma consistent with bladder carcinoma. Next -eneration sequencing reported ERBB2 positivity. He was prescribed cisplatin and gemcitabine between the dates of June 03, 2021 through September 22, 2021. A restaging the thoracoabdominopelvic CT scan ordered on August 23, 2021 reported improvement of the liver metastases and abdominal/pelvic lymphadenopathy, however, sclerotic bone metastases had progressed. Maintenance Avelumab was initiated on October 06, 2021. Recent PET scan obtained on November 16, 2021 (independently reviewed in [facility]) described diffuse metastatic involvement of the ischial bones, right acetabulum, left acetabulum, lower sacrum, iliac, thoracic vertebral bodies, ribs, and scapulae. During a recent medical oncology appointment, he reported increasing right hip pain causing difficulty with ambulation. The patient was evaluated for palliative radiotherapy to right hip. I discussed with Mr. Mcarthur the role for palliative radiotherapy. I would recommend a 2-week course of radiation therapy. A CT scan will be acquired for radiotherapy planning prior to beginning treatment to delineate the clinical target volumes. The potential toxicities of pelvic radiotherapy were reviewed. The patient has verbalized understanding would like to proceed as recommended. His medical treatment plan has been discussed with Lele Mcintyre M.D. Signed by: Dr. Luis Tse 11/24/2021 3:36:03 PM
--- NOTE | 2021-11-25 | CT_ITS ---
Radiation Therapy Planning CT images; total exam DLP: 1050.93 mGy-cm MTDD
--- NOTE | 2021-11-30 13:25 | ONCRAD TMN_ITS ---
Radiation Oncology Weekly Treatment Management Patient: Blue Reyez> MR#: [id number] : 1955> Attending Physician: Dr. Anthony Wright Date of Service: 11/30/2021 Referring Physician(s) : Lele Mcintyre M.D. Diagnosis: C78.7 - Secondary malignant neoplasm of liver and intrahepatic bile duct, Diagnosed 11/23/2021 (Active) C79.51 - Secondary malignant neoplasm of bone, Diagnosed 06/10/2021 (Active) C67.9 - Malignant neoplasm of bladder, unspecified, Diagnosed 06/03/2021 (Active) Stage IVB, [place], N3, M1b Radiotherapy to date: Course: Bone Mets 2021, Treatment Site: Bone Mets - Rt Ilium & Ischium, Ref. ID: [id number], Energy: 15X, Dose/Fx (cGy): 300, #Fx: 2 / 10, Dose Correction (cGy): 0, Total Dose (cGy): 600, Start Date: 11/29/2021, Elapsed Days: 1 Reason for visit: The patient is being seen today as part of their regularly scheduled weekly on treatment visits to assess for acute toxicities from radiotherapy. Review of Systems: Mr. Mcarthur mainly complains of right knee pain today. The right hip is not troubling him significantly. He and his believe that his long-acting morphine causes his pain to worsen shortly after he takes it. I discussed that it is a long-acting medication and any acute reaction would be unusual. He is on immediate release morphine, which helps his pain, and does not cause him any problem. His opinion is that shortly after he takes the MS Contin that every place he has bone metastases huts worse. I did check his bottle and it was labeled MS Contin. I did not have an explanation for this issue. I told Mr. Mcarthur to take the immediate release morphine, especially before he comes in for treatment so that he will be comfortable on the treatment table. In terms of the right knee pain. I told it him it could be from the blood clot that he has in the right lower extremity, chronic knee problems that he has had in the past, referred pain from the hip, or a combination of these factors. No other complaints. No questions about the treatment. Vital Signs: Performed on 11/30/2021 10:52 AM BMI - 36.282 kg/m2 (high), Height - 73 in, Weight - 275 lbs, Temperature - 96.5 f, Pulse - 69 /min, Respiration - 20 /min, O2 Sat - 99 %, Pain - 4, Fatigue - 2 and BP - 155/ 88 mm(hg)(high/). Physical Exam: Alert, oriented, no acute distress. Imaging: Radiation therapy imaging related to accurate target localization (i.e. KV, MV and CBCT) was reviewed. Appropriate changes, if any, were made to ensure treatment accuracy. Plan: Continue continue treatment according to plan. Continue immediate release morphine for pain. Instructed to be sure and take it before he comes in for treatment. Signed by: Dr. Anthony Wright 11/30/2021 1:24:19 PM
--- NOTE | 2021-12-03 10:09 | MR_ITS ---
WS: [id number] MRI RIGHT KNEE NONCONTRAST AND CONTRAST TECHNIQUE: Axial PD, coronal PD fat sat, coronal PD, sagittal PD, and sagittal PD fat-sat images obta ined. Post gadolinium images were obtained with fat saturation technique. CLINICAL INFORMATION: RIGHT KNEE PAIN. HISTORY OF METASTATIC DISEASE COMPARISON: None. FINDINGS: Distal quadriceps and patella tendons are intact. Hypertrophic patella. Normal ACL and PCL. Hypertrop hic patella. Small amount of prepatellar soft tissue edema. No acute appearing meniscal tears. Chroni c appearing thinning of the medial and lateral meniscus. Mild chondromalacia involving the medial and lateral joint compartments. No significant subchondral e lul. Normal medial and lateral collateral ligaments. No edema in the femoral condyles and tibial luly teau. Moderate chondromalacia patella. No subchondral edema. Normal medial and lateral patellar retin aculum. Normal popliteal fossa. No evidence of enhancing bony metastatic disease. MR/MR knee RT wo/w con [id number] IMPRESSION: 1. No evidence of enhancing bony metastatic disease. 2. Normal ACL and PCL. 3. Chronic thinning of the medial and lateral meniscus. No acute appearing men iscal tears. 4. Grade II chondromalacia medial and lateral joint compartments. 5. Medial and lateral collateral ligaments are intact. 6. Mild prepatellar subcutaneous soft tissue edema. 7. Moderate chondromalacia patella. Outbridge grading: grade III: partial-thickness cartilage loss with focal ulcer ation
--- NOTE | 2021-12-06 11:11 | ONCRAD TMN_ITS ---
Radiation Oncology Treatment Management Note Patient Name: Dereje Mcarthur Date of : 1955 Date of Service: 12/06/2021 Attending Physician: Luis Tse M.D. Dereje Mcarthur is a 66 year-old white male with a recently diagnosed with metastatic bladder cancer. He was initially diagnosed in April 2021 with metastatic urothelial carcinoma. He was evaluated for edema of the right leg and an enlarged right inguinal lymph node. An abdominopelvic CT scan identified multiple liver lesions and extensive abdominal and pelvic lymphadenopathy. A nuclear bone scintigraphy demonstrated widespread metastatic disease within the axial skeleton. A CT guided biopsy of a liver lesion diagnosed a metastatic adenocarcinoma consistent with bladder carcinoma. Next -generation sequencing reported ERBB2 positivity. He was prescribed cisplatin and gemcitabine between the dates of June 03, 2021 through September 22, 2021. A restaging the thoracoabdominopelvic CT scan ordered on August 23, 2021 reported improvement of the liver metastases and abdominal/pelvic lymphadenopathy, however, sclerotic bone metastases had progressed. Maintenance Avelumab was initiated on October 06, 2021. Recent PET scan obtained on November 16, 2021 described diffuse metastatic involvement of the ischial bones, right acetabulum, left acetabulum, lower sacrum, iliac, thoracic vertebral bodies, ribs, and scapulae. During a recent medical oncology appointment, he reported increasing right hip pain causing difficulty with ambulation. The patient has received 18 Gy of a prescribed 30 Rothman to the right ilium with a 3-dimensional conformal radiotherapy plan utilizing AP/PA treatment garcia. Upon review of systems, he described right knee pain. On physical examination, the patient weighed 269 lbs. His temperature was 96.8 ???F and the blood pressure was 149/83 mmHg. His pulse was 68 bpm and his respiratory rate was 18. Continue palliative radiotherapy as prescribed. His narcotic regimen was changed to Duragesic. Signed by: Dr. Luis Tse 12/06/2021 11:09:20 AM
--- NOTE | 2021-12-10 10:48 | N.ONRD TS_ITS ---
Radiation OncologyTreatment Summary Patient Name: Dereje Mcarthur Date of : 1955 Date of Service: 12/10/2021 Attending Physician: Luis Tse M.D. Dereje Mcarthur has completed palliative radiotherapy for the management of a metastatic bladder cancer. He was initially diagnosed in April 2021 with metastatic urothelial carcinoma. He was evaluated for edema of the right leg and an enlarged right inguinal lymph node. An abdominopelvic CT scan identified multiple liver lesions and extensive abdominal and pelvic lymphadenopathy. A nuclear bone scintigraphy demonstrated widespread metastatic disease within the axial skeleton. A CT guided biopsy of a liver lesion diagnosed a metastatic adenocarcinoma consistent with bladder carcinoma. Next-generation sequencing reported ERBB2 positivity. He was prescribed cisplatin and gemcitabine between the dates of June 03, 2021 through September 22, 2021. A restaging the thoracoabdominopelvic CT scan ordered on August 23, 2021 reported improvement of the liver metastases and abdominal/pelvic lymphadenopathy, however, sclerotic bone metastases had progressed. Maintenance Avelumab was initiated on October 06, 2021. Recent PET scan obtained on November 16, 2021 described diffuse metastatic involvement of the ischial bones, right acetabulum, left acetabulum, lower sacrum, iliac, thoracic vertebral bodies, ribs, and scapulae. During a recent medical oncology appointment, he reported increasing right hip pain causing difficulty with ambulation. Daily radiotherapy was administered between the dates of November 29, 2021 through December 10, 2021. A prescribed dose of 30 Gy was delivered in 10 fractions encompassing 12 elapsed days. The right ilium was treated utilizing a 3-dimensional conformal radiotherapy plan with an AP/PA portal field design. The AP field utilized a 0??? gantry angle with a collimator angle of 90???. The field size measured 9 cm x 9 cm within the X-direction and 7 cm x 7 cm within the Y-direction. The SSD measured 85.8 cm with the field delivering 174 monitor units. The PA port employed a gantry angle of 180??? and a collimator angle of 90???. The field size was 9 cm x 9 cm within X-direction and 7 cm x 7 cm within the Y-direction. The planned SSD was 86.6 cm with the field allocating 174 monitor units. All treatments were performed with the Ketto linear accelerator and an isocentric technique. The dose was calculated by Anisotropic Analytic Algorithm. Photon energies of 15 MV were prescribed with the plan normalized to deliver 100% of the prescription dose to 100% of the planning target volume. Signed by: Dr. Luis Tse 12/10/2021 10:46:57 AM
== END 2021-12-16 23:59 | disposition home or self-care (01) ==
LOC: ONCMED 07:04
PROVIDERS: Absent Provider Internal Medicine Medical Oncology; PCP Family Medicine; Visit Provider Radiology Radiation Oncology
DX: Z51.0 Encounter for antineoplastic radiation therapy (principal); C67.9 Malignant neoplasm of bladder, unspecified; C78.7 Secondary malignant neoplasm of liver and intrahepatic bile duct; C77.8 Secondary and unspecified malignant neoplasm of lymph nodes of multiple regions; C79.51 Secondary malignant neoplasm of bone; I10 Essential (primary) hypertension; K21.9 Gastro-esophageal reflux disease without esophagitis; I82.401 Acute embolism and thrombosis of unspecified deep veins of right lower extremity; Z79.899 Other long term (current) drug therapy
CPT/HCPCS: 36591; 73723; 77290; 77295; 77300; 77334; 77336; 77412; 77417; 80053; 84153; 85025; 99215; A9577

== ENCOUNTER 2021-12-27 09:11 | Outpatient (RCR) | payer MEDICARE, SELFPAY ==
[2021-12-21 10:34] LABS: Basophils # 0.1 10^3/uL (0.0-0.1); Basophils % 0.7 %; Eosinophils # 0.2 10^3/uL (0.0-0.8); Eosinophils % 2.6 %; Hematocrit 38.6 % (42.0-52.0); Hemoglobin 12.4 g/dL (11.7-16.6); Lymphocytes # 0.9 10^3/uL (0.8-4.8); Lymphocytes % 12.8 %; Mean Corpuscular HGB Conc 32.1 g/dL (30.0-36.0); Mean Corpuscular Hemoglobin 27.3 pg (28.0-34.0); Mean Platelet Volume 8.9 fL (7.4-10.4); Monocytes # 0.7 10^3/uL (0.2-0.9); Monocytes % 9.1 %; Neutrophils # 5.36 10^3/uL (1.8-7.7); Neutrophils % 73.7 %; Nucleated Red Blood Cells % 0 %; Platelet Count 181 10^3/cmm (130-400); Red Blood Count 4.54 10^6/uL (4.1-5.3); Red Cell Distribution Width 13.3 % (12.1-15.1); White Blood Count 7.3 10^3/uL (4.0-10.0)
[2021-12-21 10:47] LABS: Alanine Aminotransferase 24 U/L (0-41); Anion Gap 16.6 (5-19); Aspartate Amino Transferase 28 U/L (0-40); Blood Urea Nitrogen 20 mg/dL (8-23); Calcium 9.4 mg/dL (8.5-10.5); Carbon Dioxide 22 mmol/L (22-29); Chloride 104 mmol/L (98-107); Glucose 118 mg/dL (65-115); Osmolality Calculated 290 mOsm/kg (285-295); Potassium 4.6 mmol/L (3.5-5.1); Sodium 138 mmol/L (136-145); Total Bilirubin 0.6 mg/dL (0.15-1.2)
[2021-12-21 10:48] LABS: Albumin Level 3.7 g/dL (3.5-5.2); Alkaline Phosphatase 158 IU/L (40-130); Globulin 2.7 g/dL (1.3-4.6); Total Protein 6.4 g/dL (6.6-8.7)
--- NOTE | 2021-12-26 16:32 | ONC FU_ITS ---
Adrienne Wong Progress Note Patient: Dereje Mcarthur Unit #: [id number]: 1955 Dicatated By: Adrienne Wong N.P.Date of Visit:Dec 21, 2021 Onc MED Follow-up/Prog Note Chief Complaint: Metastatic urothelial adenocarcinoma. History of Present Illness: This is a 66 year-old man with metastatic adenocarcinoma consistent with urothelial primary. He has a known history of superficial bladder cancer, initially diagnosed in 2016. He had stage I disease (T1, N0, M0) for which he underwent TURBT and intravesical BCG. Had repeat TURBT and intravesical BCG recurrence in 2017 which was stage 0 (Tis, N0, M0) and again in 2018 which was stage I (T1, N0, M0). His records indicate that surveillance cystoscopy on 02/05/2021 showed evidence for BPH with moderate obstruction. In April 2021 he had presented with swelling of the right leg. His venous Doppler on 04/26/2021 showed no evidence of deep vein thrombosis. There appeared to be and enlarged lymph node in the right groin area measuring 5.7 x 2.3 cm. Further evaluation with CT abdomen/pelvis on 04/29/2021 showed numerous low-attenuation lesions throughout the liver consistent with metastatic disease. The largest was in the left lobe measuring 8.4 x 7.6 cm. A mass in the posterior right lobe measured 5.3 x 3.9 cm. There was extensive lymphadenopathy including retrocrural lymph node measuring 1.4 cm, celiac axis lymph node measuring 2.5 cm, periaortic adenopathy with maximum diameter of 4.8 x 6.6 cm, as well as left common iliac adenopathy measuring 2.0 cm and extensive lymph node burden extending along the right external iliac artery into the inguinal region. A right obturator lymph node measured 2.6 x 4.4 cm and a right inguinal lymph node measured 4.0 x 2.3 cm. There appeared to be minimal increased density within several of the vertebral bodies including T10 and L4, suspicious for early metastatic bone disease. Right inguinal lymph node biopsy on 05/07/2021 was nondiagnostic. Nuclear medicine bone scan on 05/17/2021 showed extensive metastatic disease throughout the axial skeleton which included all the ribs, sternum, cervical spine, thoracic spine, lumbar spine, and both hips. CT directed needle biopsy of the liver on 05/18/2021 showed metastatic adenocarcinoma consistent with urothelial primary. Additional imaging at that time included chest CT which showed 2 small lung nodules which were nonspecific, early metastatic disease not excluded. MRI of the brain showed no evidence of metastatic disease. He had medical oncology consultation with Dr. Yun at [facility] on 05/12/2021, and he was recommended to undergo a trial of palliative chemotherapy with cisplatin/gemcitabine. He began cycle 1 on 05/27/2021. He tolerated it without acute toxicity. He was then seen here for his further treatment. He received his cycle 1 day 8 gemcitabine on 06/03/2021 and cycle 1 day 15 gemcitabine on 06/10/2021. In the meantime, results of a next generation sequencing study had subsequently become available, and it did show a copy number gain of the HER-2/audie gene. There were no other actionable mutations identified. The tumor mutational burden was relatively low at 4.2 m/MB. I could not see that either microsatellite instability or PD-L1 expression were assessed/reported. The tumor, though, was subsequently assessed for overexpression of HER-2/audie, and that did come back positive, 3+ by IHC. He was seen for a scheduled follow-up visit on 06/24/2021. At that point he was feeling better generally. His blood counts were adequate, and he then continued with cycle 2 of cisplatin/gemcitabine. The dosages remained the same. He continued with his cycle 2 day 8 treatment on 07/01/2021, but at day 15 his treatment was put on hold due to a drop in his platelet count to 55,000. He was then able to continue with his 3rd cycle of treatment on 07/22/2021. It was administered with a reduction in the gemcitabine dosage. Despite the dose reduction, his cycle 3-day 8 treatment was held due to thrombocytopenia. At that point, he had developed significant swelling in his right leg, and a venous Doppler study on 07/28/2021 showed acute deep vein thrombosis involving the right popliteal and gastrocnemius veins. With that finding, he began on anticoagulation with apixaban. He was able to continue with his cycle 3-day 15 gemcitabine on 08/09/2021. Restaging CT scans of the chest, abdomen, and pelvis on 08/23/2021 showed a 4 mm pulmonary nodule in the left lower lobe along the fissure. There were no other pulmonary nodules noted and there was no mediastinal or hilar lymphadenopathy. There was improvement in metastatic lesions in the right and left hepatic lobes and there was significant improvement in previously described upper abdominal, periaortic, pelvic, and inguinal lymphadenopathy. There was a residual right anterior pelvic lymph node measuring 2.3 x 1.2 cm. Diffuse sclerotic bone metastases were reported to have progressed. With those findings he continued with his 4th cycle of chemotherapy on 09/08/2021. It was administered with Neulasta prophylactically and with the treatment changed to a day 1/day 15 schedule. With his disease showing significant response to the chemotherapy, he was then transitioned to maintenance immunotherapy with avelumab. His other medical illnesses have been limited to hypertension and GERD. He has a history of smoking 1 pack of cigarettes daily for 40 years, but he has quit now. INTERIM HISTORY: He began cycle 1 of maintenance avelulmab on 10/06/2021 at a fixed dosage of 800 mg by IV infusion every 2 weeks. He tolerated treatment without acute toxicity, and he continued with cycle 2 on 10/19/2021. At his scheduled follow-up visit on 11/02/2021 his treatment was put on hold due to development of gross hematuria. He was then scheduled for follow-up with his urologist in [place], Dr. Jn Mccray, and he also was scheduled for restaging PET/CT. I did not receive a report from Dr. Mccray, but according to the patient his cystoscopy showed no significant abnormalities in the bladder. As such, the cause for the hematuria remains uncertain, but it did resolve. In the meantime, his restaging PET/CT on 11/16/2021 showed a large calcified nodule in the right lung base. There were no other pulmonary nodules noted and there was no axillary or mediastinal pathologic lymphadenopathy. There were no focal lesions noted in the liver, and there was no pathologic lymphadenopathy in the abdomen/pelvis. The prostate demonstrated a peripheral zone increase in metabolic activity with maximum SUV of 10.50. There was noted to be extensive osseous involvement with focally increased metabolic activity and with sclerotic changes noted in areas of nonfocal increase of metabolic activity. The involved osseous structures included both ischial bones, right acetabulum, left posterior acetabulum, lower sacrum, right iliac bone, left iliac bone, multiple thoracic vertebral bodies, multiple ribs, and both scapula. There were no lytic lesions noted. Overall, the findings were felt to be suspicious for extensive bony metastatic disease and possible primary malignancy in the prostate. Patient presents today for follow-up. He continues to have weakness and fatigue. His appetite has been fair. He denies fever, chills, night sweats. No sinus drainage or sore throat. No shortness of breath, cough, chest pain. No GI problems no problems he continues to have back pain and right hip pain that radiates down his right leg. No headaches or dizziness. Review Of Symptoms: See above. Past Medical History: Gastroesophageal reflux disease Hypertension Superficial bladder cancer Past Surgical History: Right foot surgery TURBT and intravesical BCG in 2016, 2017 and 2018 Covid vaccine #3 in 2020 PowerPort left subclavian-Dr. Cam in 2020 CT directed needle biopsy of the liver in 2020 Right inguinal lymph node biopsy in 2020 Covid vaccine in 2020 Covid vaccine #1 in 2020 Excision of benign neck tumor in 2013 Allergies: No Known Allergies. Medications: Eliquis 1 Tablet (of 5 mg) Oral b.i.d. Metoprolol Tartrate 1 Tablet (of 25 mg) Oral b.i.d. Morphine Sulfate ER 1 Tablet (of 30 mg) Tablet, controlled release Oral b.i.d. Pantoprazole Sodium 1 Tablet (of 40 mg) Tablet, enteric coated Oral daily Prochlorperazine Maleate 1 Tablet (of 10 mg) Oral t.i.d. PRN Senna S 1 Tablet (of 8.6-50 mg) Oral b.i.d. Family History: Father in his late 80s. He had prostate cancer, but he apparently of old age. Mother had diabetes. He had one brother who with coronary artery disease. One sister is still living. Social History: Mr. Mcarthur is . He is a daily smoker. He has no history of drinking. He has a history of smoking 1 pack of cigarettes daily for 40 years. He just recently quit. He has very little alcohol use. Physical Examination: Performed on Dec 21, 2021 11:35: Height - 73.00 in, Weight - 259 lbs (LOW), BSA - 2.40 sq.m, BMI - 34.17 (HIGH), Temperature - 98.0 F (LOW), Pulse - 71 /min, Respiration - 18 /min, BP - 148/83 mm(hg) (HIGH), O2 Sat - 99 %, Pain - 3, and Fatigue - 8. Performance Status: 3 - Capable of only limited self-care, confined to bed or chair more than 50% of waking hours. (ECOG) Constitutional Alert, cooperative, oriented. Mood and affect appropriate. Appears close to chronological age. Well nourished. Well developed. Respiratory Lungs are clear to auscultation without rhonchi or wheezing. Cardiovascular Regular rate and rhythm of heart without murmurs, gallops or rubs. Abdomen Non-tender, non-distended, no masses, ascites or hepatosplenomegaly. Good bowel sounds. No guarding or rebound tenderness. Extremities No edema Musculoskeletal Generalized weakness Psychiatric Alert and oriented times three. Coherent speech. Verbalizes understanding of our discussions today. Laboratory: Test performed on Dec 21, 2021 10:02 Sodium 138 mmol/L Potassium 4.6 mmol/L Chloride 104 mmol/L CO2 22 mmol/L Anion Gap 16.6 BUN 20 mg/dL Creatinine 1.0 mg/dL Cr Clearance (Est) 122.3800 mL/min eGFR 75.0 mL/min Glucose 118 mg/dL Osmolality - Calculated 290 mOsm/kg Calcium 9.4 mg/dL Protein, Total 6.4 g/dL Albumin 3.7 g/dL Globulin 2.7 g/dL Bilirubin, Total 0.6 mg/dL ALT (SGPT) 24 U/L AST (SGOT) 28 U/L Alkaline Phosphatase 158 IU/L WBC 7.3 10 3/uL RBC 4.54 10 6/uL HGB 12.4 g/dL HCT 38.6 % MCV 85.0 fl MCH 27.3 pg MCHC 32.1 g/dL RDW 13.3 % Platelet Count 181 10 3/cmm MPV 8.9 fL Neutrophils 5.36 10 3/uL Lymphocytes 0.9 10 3/uL Monocytes 0.7 10 3/uL Eosinophils 0.2 10 3/uL Basophils 0.1 10 3/uL Neutrophil % 73.7 % Lymphocyte % 12.8 % Monocyte % 9.1 % Eosinophil % 2.6 % Basophils % 0.7 % NRBC % 0 % Test performed on Nov 23, 2021 08:35 PSA 0.538 ng/mL Test performed on Nov 02, 2021 09:30 Ua Color Yellow Ua Appearance Clear Ua Glucose Norm Ua Bilirubin Neg Ua Ketones Negative Ua Specific [place] 1.015 Ua Blood 3+ Ua pH 6 Ua Protein Neg Ua Urobilinogen 1 mg/dL Ua Nitrites Negative Ua Leukocyte Esterase Negative Ua Micro: WBC 0-4 /hpf Ua Micro: RBC 80-100 /hpf Ua Micro: Squam Epith Cells 0-4 /hpf Ua Micro: Bacteria TRACE /hpf Ua Micro: Mucous 1+ /hpf Impression: 1. Metastatic adenocarcinoma of urothelial origin, stage IVB (Tx, N3, M1b). 2. History of superficial bladder cancer with negative surveillance cystoscopy in January 2021. 3. Hypertension. 4. GERD. 5. Right lower extremity deep vein thrombosis. Plan: 1. Patient with metastatic adenocarcinoma consistent with urothelial primary. He has stage IV disease with CT evidence of multiple metastatic lesions in the liver and extensive metastatic lymphadenopathy in the abdomen/pelvis. There is also extensive bony metastatic disease by nuclear medicine bone scan. He began a trial of palliative chemotherapy with cisplatin/gemcitabine for 4 cycles with the possible option then to transition to maintenance immunotherapy with avelumab. On next generation sequencing, his tumor was found to have a copy number gain of the HER-2/audie gene, and on further analysis it was determined to be HER-2/audie positive, 3+ by IHC. He completed his 1st cycle of cisplatin/gemcitabine with no significant adverse effects. He proceeded with cycle 2 on 06/24/2021. With that cycle his day 15 treatment was held due to a drop in his platelet count to 55,000. He had no significant toxicity, and he has had complete recovery. Clinically he had evidence of response with decrease in the right inguinal mass. He continued with cycle 3 on 07/22/2021. It was administered with reduction in the gemcitabine dosage. Despite the dose reduction, his cycle 3-day 8 treatment was held due to thrombocytopenia. He received cycle 3-day 15 treatment on 08/09/2021. His restaging CT scans on 08/23/2021 showed evidence of response with improvement in the right and hepatic lobe metastatic lesions and in the metastatic lymphadenopathy. The sclerotic bony metastatic disease was reported to have progressed, but that I think that was more likely a reflection of bone healing rather than disease progression. He then continued with cycle 4 of cisplatin/gemcitabine on 09/08/2021. It was administered with Neulasta prophylactically and with the treatment changed to a day 1/day [address] evidence of response to the chemotherapy, his treatment was then transitioned to maintenance avelumab, cycle 1 beginning on 10/06/2021. It was administered at a fixed dosage of 800 mg by IV infusion. He tolerated it without adverse effects. He continued with cycle 2 on 10/19/2021. As of his follow-up visit on 11/02/2021 his treatment was put on hold due to development of gross hematuria. A specific cause for that has not been determined. His repeat cystoscopy reportedly showed no abnormalities in the bladder, and hematuria subsequently resolved. In the meantime, he has developed severe pain which appears to be originating in the right sacroiliac area and rating down the right leg. His restaging PET/CT on 11/16/2021 reported extensive metastatic involvement in the bone, but it appears to be mostly due to sclerotic changes without a lot of FDG activity. He otherwise appears to have a complete response to the chemotherapy, and we are wondering to what extent the bony changes may be due to active metastatic involvement as opposed to healing of his bony metastatic disease. As the origin of his pain localizes very well to the right sacroiliac area, also wondering if he may not have an acute sciatica in association with the immunotherapy. As such, his treatment will remain on hold and he was started on empiric steroid therapy with prednisone, initially at 20 mg twice daily. He was evaluated with MRI of theright knee on 12/03/2021 which did not indicate a cause for his knee pain. He will continue extended release morphine 30 mg every 12 hours. He was given a prescription for immediate release morphine to take for breakthrough pain. He will continue prednisone 10mg twice a day. 2. He has extensive metastatic involvement in bone. He has been on supportive therapy with denosumab 120 mg by subcutaneous injection. It will temporarily be put on hold. 3. He was diagnosed with acute deep vein thrombosis of the right leg on 07/28/2021. He remains on anticoagulation with apixaban. The repeat ultrasound was negative. 4. Approval will be obtained to start Enhertu every three weeks at 6.4mg/kg and will be started as soon as insurance approval is obtained. He will return to clinic for labs and education prior to start. Echocardiogram should be scheduled after start of treatment. Last echocardiogram was performed in August, with EF of 60-65% Signed By: Adrienne Wong N.P. <<Signature on File>>
[2021-12-27] MEDS: sodium chloride 0.9% 500 ML 999 ML IV (11:06)
[2021-12-27] MEDS: morphine 4 mg/mL SDV 1 mL IV ×2 (11:06→11:35)
[2021-12-27] MEDS: fentaNYL 50 mcg Patch 1 PATCH TRANSDERMA (12:05)
== END 2022-01-07 23:59 | disposition home or self-care (01) ==
LOC: ONCMED 09:11
PROVIDERS: Absent Provider Internal Medicine Medical Oncology; PCP Family Medicine; Visit Provider Nurse Practitioner Family
DX: C67.9 Malignant neoplasm of bladder, unspecified (principal); C78.7 Secondary malignant neoplasm of liver and intrahepatic bile duct; C77.8 Secondary and unspecified malignant neoplasm of lymph nodes of multiple regions; C79.51 Secondary malignant neoplasm of bone; I10 Essential (primary) hypertension; K21.9 Gastro-esophageal reflux disease without esophagitis; I82.401 Acute embolism and thrombosis of unspecified deep veins of right lower extremity; Z79.01 Long term (current) use of anticoagulants; Z79.899 Other long term (current) drug therapy; Z79.52 Long term (current) use of systemic steroids; Z92.21 Personal history of antineoplastic chemotherapy; Z92.25 Personal history of immunosuppression therapy
CPT/HCPCS: 36591; 80053; 85025; 96360; 96374; 96375; 99215; J2270; J7040

== ENCOUNTER 2022-01-03 09:25 | Emergency (ER) | payer MEDICARE, SELFPAY ==
[2022-01-03] VITALS (9 sets, daily range): BP systolic 112–144; BP diastolic 72–93; PULSE 80–110; RESP 18–26; TEMP 36.2; O2SAT 86–95; BMI 33.0
--- NOTE | 2022-01-03 09:49 | CTR_ITS ---
PROCEDURE INFORMATION: Exam: CT Abdomen And Pelvis With Contrast Exam date and time: 01/03/2022 10:54 AM Age: 66 years old Clinical indication: Generalized abdominal pain. History of bone and bladder cancer. TECHNIQUE: Imaging protocol: Computed tomography of the abdomen and pelvis with contrast. Radiation optimization: All CT scans at this facility use at least one of these dose optimization techniques: automated exposure control; mA and/or kV adjustment per patient size (includes targeted exams where dose is matched to clinical indication); or iterative reconstruction. Contrast material: OMNI 300; Contrast volume: 95 ml; Contrast route: INTRAVENOUS (IV); COMPARISON: CT chest abd pel w con* 08/23/2021 1:36 PM RADIATION DOSE METRICS: Total DLP (mGy-cm): 2275.56 FINDINGS: Lungs: Calcified granuloma at the right base. Foci of subsegmental atelectasis or scarring at the lung bases. A pulmonary nodule in the left lower lobe measures 6 mm; similar to prior (image 12). Calcified subcarinal and right hilar lymph nodes are noted. No pericardial effusion. No hiatal hernia. Liver: The liver is enlarged measuring 21.5 cm. There is cirrhotic hepatic morphology. There are innumerable new and worsened hepatic metastases nearly filling the entire liver Gallbladder and bile ducts: There is trace pericholecystic fluid. The gallbladder is distended. No definite stone or wall thickening. Consider ultrasound to further assess if clinically warranted. Pancreas: The pancreas is unremarkable. Spleen: The spleen is unremarkable. Adrenal glands: New left adrenal metastasis measuring 2.1 cm. Kidneys and ureters: Simple renal cysts measure up to 13.3 cm. No hydronephrosis. Stomach and bowel: The stomach and small bowel are unremarkable. Colonic diverticulosis without evidence of acute diverticulitis. Appendix: The appendix is unremarkable. Intraperitoneal space: No free intraperitoneal air. Mild free fluid in the pelvis. Arteries: No abdominal aortic aneurysm. Lymph nodes: No retroperitoneal lymphadenopathy. There is worsening left inguinal and left pelvic lymphadenopathy that is likely metastatic. A left pelvic lymph node measures 1.4 x 2.0 cm. A left inguinal lymph node measures 1.8 x 2.8 cm. Urinary bladder: The bladder wall is mildly thickened on the right. This could reflect subtle bladder mass or cystitis. Correlate with urinalysis. Reproductive: The prostate measures 3.3 x 4.0 cm. Bones/joints: There are numerous sclerotic osseous metastases. Some of these metastases appear worsened. Disc bulge or disc protrusion at L4-L5 with at least mild central spinal canal narrowing. Old fracture involving the left and rib. No acute fracture is seen. Soft tissues: Small fat containing left inguinal hernia. Small fat containing umbilical hernia. CT/CT abdomen pelvis w con* [id number] IMPRESSION: 1. Hepatomegaly with cirrhotic hepatic morphology. Innumerable new and worsened hepatic metastases nearly filling the entire liver; markedly worsened from prior. 2. New left adrenal metastasis. 3. Worsening left inguinal and left pelvic lymphadenopathy that is likely metastatic. 4. There are numerous sclerotic osseous metastases. Some of these metastases appear worsened. 5. The bladder wall is mildly thickened on the right. This could reflect subtle bladder mass or cystitis. Correlate with urinalysis. 6. Trace pericholecystic fluid. The gallbladder is distended. No definite stone or wall thickening. Consider ultrasound to further assess if clinically warranted. 7. Unchanged pulmonary nodule in the left lower lobe measuring 6 mm. Fleischner society guidelines do not apply in the setting of malignancy. 8. Disc bulge or disc protrusion at L4-L5 with at least mild central spinal canal narrowing. 9. Mild intermediate density free fluid in the pelvis that may contain blood or proteinaceous material. COMMENTS: Consistent with the [employer]'s Incidental Findings Committee white paper (J Am Narayan Radiol 2018): Any incidental renal lesion less than 1 cm or classified as too small to characterize, or any incidental cystic renal lesion characterized as simple-appearing, is likely benign. No follow-up imaging is recommended for these lesions per consensus recommendations based on imaging criteria.
--- NOTE | 2022-01-03 09:49 | ECG_ITS ---
[facility] Test Date: 2022-01-03 Pat Name: Dereje Mcarthur Department: Room: Gender: Male Assistant News Director: : 1955 Requested By: Benny Mcclelland Order Number: [id number] Shamar MD: Gina Martínez M.D. Measurements Intervals [place] Rate: 90 P: 39 NE: 152 QRS: 34 QRSD: 87 T: 30 QT: 343 QTc: 421 Interpretive Statements SINUS RHYTHM WITH SINUS ARRHYTHMIA No previous ECG available for comparison Electronically Signed On 01-04-2022 7:28:00 CDT by Gina Martínez M.D. [email or web address]
[2022-01-03] MEDS: lactated ringers 1,000 ML 999 ML IV (10:04)
[2022-01-03] MEDS: ondansetron 2 mg/ML SDV 2 mL 4 MG IVP (10:04)
[2022-01-03] MEDS: morphine 4 mg/mL SDV 1 mL IVP ×2 (10:05→11:18)
--- NOTE | 2022-01-03 10:05 | ED_ITS ---
HPI - Abdominal Pain General: Chief Complaint: Abdominal Pain Stated Complaint: severe right side pain/nausea/nose bleed Time Seen by Provider: 01/03/22 09:43 Source: patient Mode of arrival: wheelchair Limitations: no limitations History of Present Illness: 66-year-old male presents emergency room comp laining of right upper quadrant abdominal pain this been increasing. Is been a chronic issue but the last several days has been markedly increased. Patient has a known history of bladder cancer with systemic metastasis including of the liver and bone. Recently had increased pain in the thoracic spine associated with known metastasis and his fentanyl patch was increased from 25 to 50 mcg. After that he continued to have right upper quadrant abdominal pain that has been advancing. He had previously been treated for these with palliative chemo and repeat imaging showed improvement of some of the bony metastasis as well as the malignancies to the liver. He denies any fever sweats or chills cough or shortness of breath. He has been very fatigued and having a severe abdominal pain at the point that he is not able to function or eat. He is mildly tachycardic on arrival here. 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 Earlier today associated with vomiting he had epistaxis but that has resolved. MD elicited complaint: abdominal pain Pertinent past history: other (Bladder CA with systemic metastasis) Onset (ago): day(s) (4) Pain Consistency: constant Location: RUQ Severity: moderate Quality: cramping and aching Radiation: none Migration to: no migration Exacerbating factors: eating and movement Relieving factors: medication Associated Symptoms: Reports GI cramping, dyspepsia, nausea, poor appetite and vomiting; Denies anorexia, belching, bloating, change in bowel habits, change in stool character, chills, coffee ground emesis, constipation, diarrhea, dysuria, excessive flatus, fever(s), heartburn, hematochezia, hematuria, hematemesis, fecal incontinence, loose stools, melena and syncope Treatments prior to arrival: prescription analgesics Review of Systems Const: Denies: fever(s) or chills ENMT: Denies: throat pain, ear or mastoid pain, nasal discharge or nasal congestion Card: Denies: chest pain, palpitations, irregular heart rhythm or syncope Resp: Denies: dyspnea, productive cough or non-productive cough GI: Reports: abdominal pain, nausea, vomiting and GI cramping; Denies: hematemesis, coffee ground emesis, heartburn, diarrhea, constipation, bloating, belching, excessive flatus, fecal incontinence, change in bowel habits, change in stool character, hematochezia or melena : Denies: flank pain, difficulty urinating, dysuria, urinary frequency, urinary urgency or hematuria Musc: Reports: back pain Skin/Breast: Denies: rash or pruritus PFSH ED PFSH: Medical History History of bladder cancer Metastatic urothelial carcinoma Surgical History H/O excision of dermoid cyst Hx of cystoscopy (06/23/21) Port-A-Cath in place Family History Other CAD (coronary artery disease) Cancer Diabetes Denies family history of Dementia Chronic kidney disease (CKD) Lung disease Stroke Social History Smoking and tobacco status: current every day smoker Alcohol intake: never Lives independently: Yes Household members: spouse Marital status: Physical Exam Const: GENERAL APPEARANCE: cooperative ORIENTATION/CONSCIOUSNESS: Yes awake, Yes oriented to person, Yes oriented to place and Yes oriented to time HENMT: COMMON NORMALS: normocephalic, atraumatic and hearing grossly normal bilaterally HEAD & SCALP: normocephalic and atraumatic Neck/C-Spine: COMMON NORMALS: no JVD Resp: COMMON NORMALS: normal respiratory effort, No retractions, No use of accessory muscles and clear to auscultation bilaterally AUSCULTATION: clear to auscultation bilaterally Cardio: COMMON NORMALS: no JVD, regular rate, regular rhythm and No murmurs p resent (Cardio) RATE: regular rate RHYTHM: regular rhythm GI: COMMON NORMALS: No hepatosplenomegaly present AUSCULTATION: Yes normoactive bowel sounds PALPATION: Yes Tenderness to palpation present (GI) (Right upper quadrant) Details: RUQ, No Guarding due to palpation present (GI) and Yes No hepatosplenomegaly present Extremity: COMMON NORMALS: normal to inspection, capillary refill normal, no clubbing, cyanosis or edema, no calf tenderness and no pedal edema Neuro: SENSORIUM/ORIENTATION: Yes oriented to person, Yes oriented to place and Yes oriented to time Skin: COMMON NORMALS: no rashes or lesions noted GENERAL SKIN EXAM: no rashes or lesions noted Course Vital Signs: Vital signs: Vital Signs Temperature 97.2 F L 01/03/22 09:32 Pulse Rate 95 01/03/22 14:54 Respiratory Rate 26 H 01/03/22 14:54 Blood Pressure 112/87 01/03/22 14:54 Pulse Oximetry 95 01/03/22 14:54 MDM - Abdominal Pain Medical Decision Making CT shows extensive metastasis in the liver. Discussed with the patient and the family. Primary goal at this point in the emergency room is pain controlled. Patient is requiring some oxygen. We will increase his fentanyl did not O2 evaluation require 2 to 3 L per nasal cannula which we arranged for. Continue use of morphine for breakthrough pain patient would like and family would like to pursue hospice hospice. Per their request [facility] was called and will do a consult in their home. Encouraged him to follow-up with oncology to look at what their different options may be. At this point they are content with comfort cares. Medical Records I reviewed the patient's medical records. Lab Data I reviewed the patient's lab results. : 01/03/22 10:00 01/03/22 10:00 Labs/Radiology: Radiology Impressions Abdomen/Pelvis CT 01/03/22 09:49 IMPRESSION: 1. Hepatomegaly with cirrhotic hepatic morphology. Innumerable new and worsened hepatic metastases nearly filling the entire liver; markedly worsened from prior. 2. New left adrenal metastasis. 3. Worsening left inguinal and left pelvic lymphadenopathy that is likely metastatic. 4. There are numerous sclerotic osseous metastases. Some of these metastases appear worsened. 5. The bladder wall is mildly thickened on the right. This could reflect subtle bladder mass or cystitis. Correlate with urinalysis. 6. Trace pericholecystic fluid. The gallbladder is distended. No definite stone or wall thickening. Consider ultrasound to further assess if clinically warranted. 7. Unchanged pulmonary nodule in the left lower lobe measuring 6 mm. Fleischner society guidelines do not apply in the setting of malignancy. 8. Disc bulge or disc protrusion at L4-L5 with at least mild central spinal canal narrowing. 9. Mild intermediate density free fluid in the pelvis that may contain blood or proteinaceous material. COMMENTS: Consistent with the [employer]'s Incidental Findings Committee white paper (J Am Narayan Radiol 2018): Any incidental renal lesion less than 1 cm or classified as too small to characterize, or any incidental cystic renal lesion characterized as simple-appearing, is likely benign. No follow-up imaging is recommended for these lesions per consensus recommendations based on imaging criteria. Chest X-Ray 01/03/22 10:18 IMPRESSION: 1. No acute cardiopulmonary finding. Laboratory Results WBC 13.8 10^3/uL (4.0-10.0) H 01/03/22 10:00 RBC 4.75 10^6/uL (4.1-5.3) 01/03/22 10:00 Hgb 13.0 g/dL (11.7-16.6) 01/03/22 10:00 Hct 40.0 % (42.0-52.0) L 01/03/22 10:00 MCV 84.2 fl (80-94) 01/03/22 10:00 MCH 27.4 pg (28.0-34.0) L 01/03/22 10:00 MCHC 32.5 g/dL (30.0-36.0) 01/03/22 10:00 RDW 14.8 % (12.1-15.1) 01/03/22 10:00 Plt Count 131 10^3/cmm (130-400) 01/03/22 10:00 MPV 10.8 fL (7.4-10.4) H 01/03/22 10:00 Neut % (Auto) 83.3 % 01/03/22 10:00 Lymph % (Auto) 7.2 % 01/03/22 10:00 Ray % (Auto) 5.1 % 01/03/22 10:00 Eos % (Auto) 0.1 % 01/03/22 10:00 Baso % (Auto) 0.3 % 01/03/22 10:00 Neut # (Auto) 11.50 10^3/uL (1.8-7.7) H 01/03/22 10:00 Lymph # (Auto) 1.0 10^3/uL (0.8-4.8) 01/03/22 10:00 Ray # (Auto) 0.7 10^3/uL (0.2-0.9) 01/03/22 10:00 Eos # (Auto) 0.0 10^3/uL (0.0-0.8) 01/03/22 10:00 Baso # (Auto) 0.0 10^3/uL (0.0-0.1) 01/03/22 10:00 Nucleated RBC % (auto) 0.9 % 01/03/22 10:00 Nucleated RBCs # 0.1 /100WBC 01/03/22 10:00 Sodium 139 mmol/L (136-145) 01/03/22 10:00 Potassium 5.0 mmol/L (3.5-5.1) 01/03/22 10:00 Chloride 101 mmol/L (98-107) 01/03/22 10:00 Carbon Dioxide 18 mmol/L (22-29) L 01/03/22 10:00 Anion Gap 25.0 (5-19) H 01/03/22 10:00 BUN 36 mg/dL (8-23) H 01/03/22 10:00 Creatinine 1.6 mg/dL (0.7-1.2) H 01/03/22 10:00 GFR Calculation 43.6 mL/min (90-130) L 01/03/22 10:00 Glucose 112 mg/dL (65-115) 01/03/22 10:00 Calculated Osmolality 297 mOsm/kg (285-295) H 01/03/22 10:00 Calcium 8.1 mg/dL (8.5-10.5) L 01/03/22 10:00 Total Bilirubin 2.5 mg/dL (0.15-1.2) H 01/03/22 10:00 AST 175 U/L (0-40) H 01/03/22 10:00 ALT 139 U/L (0-41) H 01/03/22 10:00 Alkaline Phosphatase 389 IU/L (40-130) H 01/03/22 10:00 Total Protein 6.3 g/dL (6.6-8.7) L 01/03/22 10:00 Albumin 3.5 g/dL (3.5-5.2) 01/03/22 10:00 Globulin 2.8 g/dL (1.3-4.6) 01/03/22 10:00 Lipase 18 U/L (13-60) 01/03/22 10:00 Discharge Plan Discharge Patient Disposition: Home Clinical Impression: Metastatic urothelial carcinoma, Hepatic metastases Condition: Stable Prescriptions: New fentanyl 75 mcg/hr patch 72 hour 1 patch transdermal Q72H Qty: 5 0RF ondansetron HCl 4 mg tablet 4 mg PO Q6H PRN (Reason: nausea and vomiting) Qty: 20 0RF Discontinued fentanyl 50 mcg/hr patch 72 hour 50 mcg transdermal Q72H 0RF No Action prochlorperazine maleate 10 mg tablet 10 mg PO QID PRN (Reason: cinv) 0RF prednisone 10 mg tablet 10 mg PO DAILY@03 0RF sennosides-docusate sodium [Stool Softener-Laxative] 8.6-50 mg tablet 2 tab PO BID@08,20 0RF pantoprazole 40 mg tablet,delayed release (DR/EC) 40 mg PO DAILY@06 0RF morphine 15 mg tablet 15 - 30 mg PO QID 0RF Rx Instructions: @03:00,09:00,15:00,21:00 metoprolol tartrate 25 mg tablet 25 mg PO BID@06,18 0RF Eliquis 5 mg tablet 5 mg PO BID@08,20 0RF Discharge Orders: Discharge ED (Routine); Ordered 01/03/22 Ordered By: Benny Brewer Other Ambulatory Orders: DME: Oxygen (Order) Location: None Selected Ordered By: Benny Brewer Referrals: Patel Esquivel [Primary Care Provider] - Discharge Diet: Advance as tolerated Discharge Activity: Limit activity as instructed Patient Instructions: Opioid Safety Activity Restrictions/Additional Instructions: Call oncology for follow-up visit. Hospice will do an evaluation in your home. Coding Level of Care Code ED Tornado Chaser for Chg Fwd Exam Comprehensive
[2022-01-03 10:06] LABS: Basophils % 0.3 %; Eosinophils % 0.1 %; Lymphocytes % 7.2 %; Mean Corpuscular HGB Conc 32.5 g/dL (30.0-36.0); Mean Corpuscular Hemoglobin 27.4 pg (28.0-34.0); Mean Corpuscular Volume 84.2 fl (80-94); Mean Platelet Volume 10.8 fL (7.4-10.4); Monocytes # 0.7 10^3/uL (0.2-0.9); Monocytes % 5.1 %; Neutrophils % 83.3 %; Nucleated Red Blood Cells # 0.1 /100WBC; Nucleated Red Blood Cells % 0.9 %; Platelet Count 131 10^3/cmm (130-400); Red Blood Count 4.75 10^6/uL (4.1-5.3); Red Cell Distribution Width 14.8 % (12.1-15.1); White Blood Count 13.8 10^3/uL (4.0-10.0)
--- NOTE | 2022-01-03 10:18 | XR_ITS ---
WS: [id number] Exam: XR chest 1V portable [id number] Date/Time of Exam: 01/03/2022 10:24 AM Reason For Exam: dyspnea/cough The lungs are fully expanded and clear. Cardiomediastinal silhouette is unremarkable for technique. A left subclavian port ends in the lower one third of the SVC in good position. Bony structures are in tact. XR/XR chest 1V portable [id number] IMPRESSION: 1. No acute cardiopulmonary finding.
[2022-01-03 10:26] LABS: Alanine Aminotransferase 139 U/L (0-41); Albumin Level 3.5 g/dL (3.5-5.2); Alkaline Phosphatase 389 IU/L (40-130); Aspartate Amino Transferase 175 U/L (0-40); Blood Urea Nitrogen 36 mg/dL (8-23); Calcium 8.1 mg/dL (8.5-10.5); Carbon Dioxide 18 mmol/L (22-29); Chloride 101 mmol/L (98-107); Globulin 2.8 g/dL (1.3-4.6); Glomerular Filtration Rate 43.6 mL/min (90-130); Glucose 112 mg/dL (65-115); Lipase 18 U/L (13-60); Osmolality Calculated 297 mOsm/kg (285-295); Sodium 139 mmol/L (136-145); Total Bilirubin 2.5 mg/dL (0.15-1.2); Total Protein 6.3 g/dL (6.6-8.7)
[2022-01-03] MEDS: iohexol 300 mg/mL 100 mL Btl IV (11:00)
--- NOTE | 2022-01-03 11:18 | PC.PHAR ---
pts verified pts medications-pts states the pts norco 5-325,dexamethasone 4mg, and baclofen was dced-notes are in the pharmacy comments
--- NOTE | 2022-01-03 12:43 | DCPLANNER ---
manager acquisition was asked to call [facility] for patient to refer for services. manager acquisition spoke with patients family, and the family stated that they wanted to use [facility] for services. manager acquisition called [facility] to refer patient for services, will fax patients information to hospice.
--- NOTE | 2022-01-03 14:52 | PC.NURSE ---
Reviewed new meds including incr'd dose of fentanyl patch.
== END 2022-01-03 14:57 | disposition home or self-care (01) ==
PROVIDERS: Emergency Provider Family Medicine; PCP Nurse Practitioner Family
DX: C78.7 Secondary malignant neoplasm of liver and intrahepatic bile duct (principal); C79.51 Secondary malignant neoplasm of bone; C67.9 Malignant neoplasm of bladder, unspecified; G89.3 Neoplasm related pain (acute) (chronic); M54.6 Pain in thoracic spine; F17.200 Nicotine dependence, unspecified, uncomplicated; Z79.891 Long term (current) use of opiate analgesic
CPT/HCPCS: 71045; 74177; 80053; 83690; 85025; 93005; 96361; 96374; 96375; 96376; 99284; J2270; J2405; Q9967